=== PATIENT | female | born 1965 | race Caucasian/White ===

== ENCOUNTER 2017-10-17 19:57 | Emergency (ER) | payer MEDICARE, MEDICAID, SELFPAY ==
[2017-10-17] VITALS (9 sets, daily range): BP systolic 93–97; BP diastolic 65–67; PULSE 83–89; RESP 16–20; TEMP 36.5–36.9; O2SAT 92–100
--- NOTE | 2017-10-17 20:21 | DI.REPORT_ITS ---
SYMPTOM/DIAGNOSIS: LEFT KNEE PAIN POST FALL, RIGHT HIP PAIN POST FALL LEFT KNEE: 10/17 Three views were obtained No fracture seen. RIGHT HIP 10/17 Two views were obtained. There are mild degenerative changes of the hip joint. No acute fracture seen.
--- NOTE | 2017-10-17 20:21 | DI.RPTCT_ITS ---
SYMPTOM/DIAGNOSIS: FALL, MIDLINE C-SPINE PAIN, ANTERIOR HEAD PAIN CT CERVICAL SPINE: 10/17 CT examination of the cervical spine was performed utilizing multi-slice acquisition and multiplanar reconstruction. CT examination of the cervical region was performed with multi slice acquisition and multi planar reconstruction. There is no evidence of an acute fracture or dislocation. Tracheolaryngeal structures appear intact. No cervical mass or adenopathy is seen. IMPRESSION: Normal cervical spine CT. No evidence of acute cervical injury. CRANIAL CT (WITHOUT CONTRAST): 10/[address] was performed. The ventricular system is normal in appearance. There is no evidence of an intracranial mass lesion. There is no evidence of a subdural or epidural hematoma. No focal areas of decreased attenuation are seen. CONCLUSION: Normal noncontrast Cranial CT.
[2017-10-17] MEDS: Normal Saline 1,000 ML 1000 ML IV (20:28)
[2017-10-17 20:40] LABS: Abs Immature Grans 0.02 k/cumm (0.0-0.09); Absolute Basophil Count 0.06 k/cumm (0.0-0.2); Absolute Eosinophil Count 0.18 k/cumm (0.0-0.7); Absolute Lymphocyte Count 3.63 k/cumm (1.2-3.4); Absolute Monocyte Count 0.32 k/cumm (0.11-0.7); Absolute Neutrophil Count 2.03 k/cumm (1.2-6.7); Eosinophils % 2.9; HCT 39.4 % (36.0-46.0); HGB 12.9 g/dL (12.0-15.5); Immature Grans % 0.3; Lymphocytes % 58.2; Mean Corp. HGB Concentration 32.7 g/dL (32.0-36.0); Mean Corpuscular Hemoglobin 31.2 pg (27.0-33.0); Mean Corpuscular Volume 95.4 fL (80-95); Mean Platelet Volume 9.8 fL (8.0-11.0); Monocytes % 5.1; Neutrophils % 32.5; Platelet Count 221 x1000/uL (130-400); RBC 4.13 m/cumm (4.00-5.20); RBC Distribution Width 13.8 % (11.7-14.6); White Blood Cell Count 6.24 k/cumm (4.4-10.8)
[2017-10-17 20:50] LABS: Lipase 177 U/L (73-393)
--- NOTE | 2017-10-17 20:53 | DI.REPORT_ITS ---
SYMPTOM/DIAGNOSIS: VOMITING FOR 3 DAYS R/O ACUTE PROCESS ABDOMEN: 10/17 Single supine view of the abdomen was obtained. Bowel gas pattern is within normal limits. No other specific abnormality seen.
[2017-10-17 20:55] LABS: ALT 11 U/L (12-78); AST 14 U/L (15-37); Albumin 3.7 g/dL (3.4-5.0); Alkaline Phosphatase 129 U/L (46-116); Anion Gap 5.7 mmol/L (3-11); BUN 6 mg/dL (7-18); Bilirubin, Total 0.2 mg/dL (0.2-1.0); CO2 28.3 mmol/L (21.0-32.0); CREATININE 0.81 mg/dL (0.55-1.02); Calcium 8.4 mg/dL (8.5-10.1); Chloride 107 mmol/L (98-107); Glucose 112 mg/dL (70-100); Potassium 3.5 mmol/L (3.5-5.1); Sodium 141 mmol/L (136-145); Total Protein 7.2 g/dL (6.4-8.2)
[2017-10-17 21:00] LABS: ETHANOL BLOOD < 3.0 mg/dL (<3)
--- NOTE | 2017-10-17 21:14 | DI.REPORT_ITS ---
SYMPTOM/DIAGNOSIS: SOB, POSSIBLE ASPIRATION PORTABLE AP CHEST: 10/17 The heart is not enlarged. The lungs are grossly clear and well expanded. CONCLUSION: No evidence of acute disease.
--- NOTE | 2017-10-17 21:22 | ED.GENADUL ---
Disposition Clinical Impression: Fall, Dehydration Disposition: HOME Condition: Good Instructions: Dehydration (ED), Fall Prevention (ED) Additional Instructions: Please drink 8-10 cups of water per day. If you notice any worsening of your symptoms, or any new symptoms such as vomiting, diarrhea, fever, chills, shortness of breath, chest pain, numbness, weakness, or fainting , please return immediately to the emergency department for reevaluation. Please follow up with your primary care provider as soon as possible for reassessment and reevaluation. As always, it was a pleasure participating in your medical care today. Referrals: Eliot Sanchez [Primary Care Provider] - Medical Decision Making - Lab Data Laboratory Tests 10/17/17 10/17/17 10/17/17 20:30 20:30 20:30 WBC 6.24 RBC 4.13 Hgb 12.9 Hct 39.4 MCV 95.4 H MCH 31.2 MCHC 32.7 RDW 13.8 Plt Count 221 MPV 9.8 Immature Gran % 0.3 Neutrophils % 32.5 Lymphocytes % 58.2 Monocytes % 5.1 Eosinophils % 2.9 Basophils % 1.0 Absolute Neutrophils 2.03 Absolute Lymphocytes 3.63 H Absolute Monocytes 0.32 Absolute Eosinophils 0.18 Absolute Basophils 0.06 Sodium 141 Potassium 3.5 Chloride 107 Carbon Dioxide 28.3 Anion Gap 5.7 BUN 6 L Creatinine 0.81 Estimated GFR/1.73 m2 >= 60.00 Glucose 112 H Calcium 8.4 L Total Bilirubin 0.2 AST 14 L ALT 11 L Alkaline Phosphatase 129 H Total Protein 7.2 Albumin 3.7 Lipase 177 Ethyl Alcohol < 3.0 - Medical Decision Making This is a 51-year-old female who presents for evaluation after fall. She has pain in her head right hip and left knee. She shows no signs of significant trauma, physical exam is relatively benign with no deformity, abnormality, laxity, or signs of significant trauma. She does appear dehydrated, she does state that she has been vomiting occasionally for the last 3 days. The patient does appear slightly drowsy on my exam. We will get a CT scan of the head and neck, radiographs to rule out any acute process for her lungs, abdomen and extremities. We will rehydrate the patient and reassess. 11:00 PM Patient's laboratory workup has returned relatively benign. Urinalysis for the urine drug screen does show evidence of TCAs and benzodiazepines. Her QRS is normal. Patient continues to be mildly lethargic but certainly responds to painful stimuli. She demonstrates an intact gag reflex. The patient's x-ray results have returned all negative per virtual radiology. Chest x-ray is negative for any acute process, x-ray of the abdomen demonstrates normal abdominal examination with no abnormalities. X-ray of the right hip demonstrates normal 2 view evaluation of the right hip with no fracture or abnormality. X-ray of the left knee demonstrates no acute fracture finding detected. CT scan of the head and neck demonstrates no acute intracranial or cervical spine process per virtual radiology. EKG 22: 43 Rate 73, sinus rhythm, intervals normal, NH 192, QTc 439, QRS 86. No ST elevations or depressions. No T-wave inversions. No Q waves. The patient's benign laboratory workup, and normal imaging studies feel that there is no significant acute traumatic process, in combination with her clinical exam. Patient has demonstrated mild hypotension clinically she does appear slightly dehydrated. We have given her IV fluids. She also does appear notably sedated, and I am concerned that she may have taken some additional benzodiazepines prior to arrival. We will continue to watch and observe her, once her fatigue improves I feel she can be safely discharged home. 12:23 AM The patient has woken up and she appears very awake alert and oriented at this time. Did go in and reevaluate the patient she does state that she might have taken 1 extra clonidine earlier tonight, which would explain her fatigue and her slightly lower blood pressure. After 3 L the patient's blood pressure is in the 90s systolic. I did get her up and ambulated her throughout the department for which she did very well. She had no pain with movement showed no signs of unsteadiness. She continues to demonstrate a normal neurologic exam. I feel that she can be safely discharged home with close follow-up. We discussed red flags which returned the patient understands. I have extensively reviewed the treatment plan and discharge instructions with the patient. I have addressed all patient concerns at this time. The patient was made aware of what symptoms to monitor for that would warrant a return to the emergency department. Discussed the plan with the patient, they demonstrate verbal understanding and agreement with our assessment and plan at this time. History of Present Illness - General Chief complaint: Trauma Stated complaint: ANGEL RESCUE Time Seen by Provider: 10/17/17 20:20 - History of Present Illness Initial comments: This is a 51-year-old female with a past medical history of bipolar, schizophrenia, past surgical history of a hysterectomy who presents today for evaluation after fall. Patient states that she is walking up a ramp at her house with her dogs when she slipped his slip refill, and hit her left knee, right hip, and head. Patient recalls the entire event. She did then lay on the ground for 30 minutes and states that she was unable to get up. Currently she appears very drowsy, but per EMS was awake alert and oriented at the scene. She is complaining of left knee pain, right hip pain, and head pain. Patient does not have any blood thinners that she takes regularly. She denies any IV or illicit drug use. She does take trazodone, Klonopin, amitriptyline regularly. Patient denies taking any additional medications at this time. Patient denies any vision changes, numbness tingling or weakness, chest pain, or shortness of breath. She does state for the last 3 days she has been having occasional vomiting, but has been able to keep down some food today. Patient has no other complaints at this time. - Related Data Calcium Carbonate/Vitamin D3 [Calcium 500-Vit D3 400 Tablet] 1 each PO BID #180 tab-cap 10/23/16 Multivitamin [Multi-Vitamin Daily] 1 each PO DAILY #90 tab-cap 10/23/16 Magnesium Oxide [Magnesium] 400 mg PO DAILY #90 tab-cap 12/06/16 Trazodone HCl 200 mg PO HS #14 tab-cap 02/09/17 Clonazepam 0.5 mg PO TID PRN #60 tab-cap 03/14/17 QUEtiapine [SEROquel] 100 mg PO HS tab-cap 03/21/17 Amoxicillin/Potassium Clav [Amox-Clav 875-125 mg Tablet] 1 each PO BID #10 tab 08/31/17 Amitriptyline [Elavil] 25 mg PO TID tab-cap 09/04/17 Amitriptyline [Elavil] 100 mg PO HS tab-cap 09/04/17 Pregabalin [Lyrica] 300 mg PO BID #14 tab-cap 09/19/17 Allergies Allergy/AdvReac Type Severity Reaction Status Date / Time gabapentin Allergy Unknown unknown Unverified 09/04/17 13:50 aripiprazole [From Abilify] AdvReac Mild Psychosis Unverified 09/04/17 13:50 Review of Systems Other: 10 point review of systems was performed, pertinent positives and negatives are noted in the history of present illness. Past Medical History - Past Medical History Medical history: GERD Metabolic encephalopathy Surgical history: appendectomy, EGD, bilateral tubal ligation, hysterectomy, other (colonoscopy, ) - Social History Alcohol use: heavy Drug use: opiates, marijuana General Exam - Other Other exam information: 1.Const: Well-nourished, Well-developed, appearing stated age 2.Eyes: PERRL, no conjunctival injection, and symmetrical lids. 3.ENT: Atraumatic external nose and ears. Moist MM. Neck: Symmetric, trachea midline, No thyromegaly. There is no evidence of raccoon eyes, block sign, CSF rhinorrhea, mastoid tenderness, cranial crepitus, hemotympanum, exophthalmos, or hyphema. Patient demonstrates intact dentition with no signs of tooth avulsion or fracture, no signs of jaw deformity, no evidence of a LeFort's fracture, with an intact palate, nose and orbital region. There is no evidence of a nasal septal hematoma. No proptosis. Jaw closes symmetrically. Airway is clear. Minimal midline C-spine tenderness, more pronounced on the left paraspinal area. 4.CVS: +S1/S2, No murmurs or gallops. Peripheral pulses 2+ and equal in all extremities. Brisk capillary refill in all extremities. 5.RESP: Unlabored respiratory effort. Clear to auscultation bilaterally. No wheezes rales or rhonchi 6.GI: Soft, Nontender/Nondistended, No hepatosplenomegaly. No guarding or rebound. No signs of bruising or trauma. No significant tenderness on exam. 7.MSK: Normocephalic/Atraumatic, Extremities w/o deformity or ttp No cyanosis or clubbing, Normal movement of all extremities normal range of motion for the upper extremities bilaterally. Patient demonstrates normal internal and external rotation of the hip bilaterally with no significant pain. Normal movement of the knees bilaterally with no crepitus. No joint or ligamentous laxity of the knee. No midline tenderness to palpation over the TLS spine. Patient has +5 out of 5 strength in the lower extremities in dorsiflexion and plantarflexion, knee flexion and extension, hip flexion and extension. There is +2 over 2 dorsalis pedis pulses bilaterally. There is normal sensation to the skin with light touch at the foot, knee, and hip. Normal saddle sensation. Good sensation over the deep sural nerve area bilaterally. Rectal exam deferred. Reflexes are +2 over 4 in the patellar reflex bilaterally. +5 out of 5 strength in the medial, ulnar, radial nerve distribution bilaterally in the hands as well as intact light touch sensation to these dermatomes on the hands 8.Skin: Warm, Dry. No rashes or lesions. No signs of abrasions, significant trauma or excoriations. 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 Sensation grossly intact, no focal neurologic deficits. 10.Psych: (AAO) x3. Appropriate mood and affect Course Vital Signs - 24 hr 10/17/17 20:07 Temperature 36.9 C Pulse 89 Respiratory 18 Rate Blood Pressure 97/67 Pulse Oximetry 93 L
[2017-10-17 21:43] LABS: Troponin I < 0.02 ng/mL (0.00-0.06)
[2017-10-17 22:00] LABS: *AMPHETAMINES SCREEN URINE Negative (Negative); *BARBITURATES SCREEN URINE Negative (Negative); *BENZODIAZEPINES SCREEN URINE POSITIVE (Negative); Cannabinoids THC Negative (Negative); Cocaine Screen,Urine Negative (Negative); METHADONE URINE SCREEN Negative (Negative); OPIATES URINE SCREEN Negative (Negative)
[2017-10-17 22:01] LABS: Tricyclic Antidepressants POSITIVE (Negative)
--- NOTE | 2017-10-17 22:07 | DI.VRAD_ITS ---
EXAM: CT Head Without Intravenous Contrast EXAM DATE/TIME: 10/17/2017 8:46 PM CLINICAL HISTORY: 51 years old, female; Signs and symptoms; Other: Fall TECHNIQUE: Axial computed tomography images of the head/brain without intravenous contrast. All CT scans at this facility use at least one of these dose optimization techniques: automated exposure control; mA and/or kV adjustment per patient size (includes targeted exams where dose is matched to clinical indication); or iterative reconstruction. Coronal and sagittal reformatted images were created and reviewed. COMPARISON: CT - HEAD WITHOUT CONTRAST 11/17/2015 3:24 PM FINDINGS: Brain: Moderate bifrontal temporal cortical atrophy is present. The possibility of some underlying neurodegenerative disorder should be considered. No intracranial hemorrhage. No significant white matter and in the period Ventricles: Normal. No ventriculomegaly. Bones/joints: Normal. No acute fracture. Sinuses: Normal as visualized. No acute sinusitis. Mastoid air cells: Normal as visualized. No mastoid effusion. Soft tissues: Normal. IMPRESSION: No acute intracranial findings are detected. EXAM: CT Cervical Spine Without Intravenous Contrast EXAM DATE/TIME: 10/17/2017 8:46 PM CLINICAL HISTORY: 51 years old, female; Signs and symptoms; Other: Fall TECHNIQUE: Axial computed tomography images of the cervical spine without intravenous contrast. All CT scans at this facility use at least one of these dose optimization techniques: automated exposure control; mA and/or kV adjustment per patient size (includes targeted exams where dose is matched to clinical indication); or iterative reconstruction. Coronal and sagittal reformatted images were created and reviewed. COMPARISON: CT - HEAD WITHOUT CONTRAST 11/17/2015 3:24 PM FINDINGS: Vertebrae: No acute fracture. Normal alignment. Discs/Spinal canal/Neural foramina: No spinal stenosis. No neural foraminal narrowing. Soft tissues: Unremarkable. Lung apices: Posterior right apical-upper lobe pleural bullae are present. IMPRESSION: No acute findings are detected. Dictated and Authenticated by: Yehuda Ozuna MD. Ordering:OLIVIA SMART MD
--- NOTE | 2017-10-17 22:08 | DI.VRAD_ITS ---
EXAM: XR Left Knee, 3 Views EXAM DATE/TIME: 10/17/2017 8:24 PM CLINICAL HISTORY: 51 years old, female; Pain; Knee; Left; Patient HX: Lt. Knee pain after fall. ; Additional info: Best tunnel view possible due to patient's loc. TECHNIQUE: XR Left knee 3 views. COMPARISON: No relevant prior studies available. FINDINGS: Bones/joints: Normal. Soft tissues: Normal. IMPRESSION: No acute findings are detected. Dictated and Authenticated by: Yehuda Ozuna MD. Ordering:OLIVIA SMART MD
--- NOTE | 2017-10-17 22:09 | DI.VRAD_ITS ---
EXAM: XR Right Hip with Pelvis when Performed, 2 or 3 Views EXAM DATE/TIME: 10/17/2017 8:24 PM CLINICAL HISTORY: 51 years old, female; Pain; Hip pain; Right hip TECHNIQUE: XR Right hip with pelvis when performed, 2 or 3 views COMPARISON: CR - RIGHT HIP COMPLETE 05/10/2012 9:06 AM FINDINGS: Bones/joints: Normal. No acute fracture. Soft tissues: Normal. IMPRESSION: Normal 2 view evaluation of the right hip. Dictated and Authenticated by: Yehuda Ozuna MD. Ordering:OLIVIA SMART MD
--- NOTE | 2017-10-17 22:10 | DI.VRAD_ITS ---
EXAM: XR Abdomen, 1 View EXAM DATE/TIME: 10/17/2017 8:54 PM CLINICAL HISTORY: 51 years old, female; Signs and symptoms; Vomiting; Patient HX: Vomiting x3 days TECHNIQUE: Frontal supine view of the abdomen/pelvis. COMPARISON: CR - ABDOMEN FLAT PLATE 05/19/2013 11:12 AM FINDINGS: Gastrointestinal tract: Normal. No bowel dilation. Bones/joints: Unremarkable for age. IMPRESSION: Normal supine AP abdominal examination. Dictated and Authenticated by: Yehuda Ozuna MD. Ordering:NICHOLAS REYNA MD
--- NOTE | 2017-10-17 22:11 | DI.VRAD_ITS ---
EXAM: XR Chest, 1 View EXAM DATE/TIME: 10/17/2017 9:09 PM CLINICAL HISTORY: 51 years old, female; Signs and symptoms; Shortness of breath; Patient HX: SOB, possible aspiration. TECHNIQUE: XR of the chest, 1 view. COMPARISON: CR - CHEST 2 VIEWS PA,LAT 09/01/2014 4:05 AM FINDINGS: Lungs: Unremarkable. No consolidation. Pleural space: Unremarkable. No pleural effusion. No pneumothorax. Heart/Mediastinum: Unremarkable. No cardiomegaly. Bones/joints: Unremarkable for patient's age. IMPRESSION: Normal AP chest examination. Dictated and Authenticated by: Yehuda Ozuna MD. Ordering:OLIVIA SMART MD
[2017-10-18] MEDS: Normal Saline 1,000 ML 1000 ML IV (00:24)
== END 2017-10-18 00:36 | disposition home or self-care (01) ==
PROVIDERS: Student in an Organized Health Care Education/Training Program; Emergency Provider Physician Assistant; PCP Family Medicine
DX: E86.0 Dehydration (principal); S09.90XA Unspecified injury of head, initial encounter; R11.2 Nausea with vomiting, unspecified; W10.2XXA Fall (on)(from) incline, initial encounter; Y93.K1 Activity, walking an animal; R53.83 Other fatigue; M25.551 Pain in right hip; M25.562 Pain in left knee
CPT/HCPCS: 70450; 71045; 72125; 73502; 73562; 74018; 93005; 96360; 96361; 99285 ×2; 36415; 80053; 80307; 83690; 80320; 84484; 85025; 93010

== ENCOUNTER → 2017-10-23 11:53 | Outpatient (CLI) | payer MEDICARE, MEDICAID, SELFPAY ==
[2017-10-23 13:39] LABS: Cholesterol 210 mg/dL (50-200); HDL Cholesterol 59 mg/dL (40-60); LDL CHOLESTEROL 116 mg/dL (<100); Triglyceride 245 mg/dL (30-150)
== END ==
PROVIDERS: PCP Family Medicine; Visit Provider Family Medicine
DX: E78.5 Hyperlipidemia, unspecified (principal)
CPT/HCPCS: 36415; 80061; 83721

== ENCOUNTER 2018-01-03 11:35 | Emergency (ER) | payer MEDICARE, MEDICAID, SELFPAY ==
[2018-01-03] VITALS (34 sets, daily range): BP systolic 104–113; BP diastolic 60–84; PULSE 91–109; RESP 16–22; TEMP 36.7–37.1; O2SAT 93–98
--- NOTE | 2018-01-03 11:57 | DI.CT_ITS ---
SYMPTOMS/DIAGNOSIS: LEFT FLANK AND ABDOMINAL PAIN RENAL COLIC CT: The noncontrast enhanced study was carried out according to the usual protocol. The kidneys are normal with no evidence of nephrolithiasis or hydronephrosis. No gross mass or cyst is identified. The adrenals appear normal. There is no evidence of ureterolithiasis or ureterectasis. The bladder is intact. The liver, and gallbladder, and pancreas and spleen as visualized appear unremarkable on this nonenhanced scan. There is no evidence of bowel obstruction. There is no evidence of free air or free fluid in the intraperitoneal space. There is also no evidence of an acute appendix. The reproductive organs as visualized appear intact. There are atherosclerotic changes involving the aorta without evidence of an aneurysm. No acute bony abnormality is identified. SUMMARY: No pathology is demonstrated.
--- NOTE | 2018-01-03 12:00 | DI.CT_ITS ---
SYMPTOMS/DIAGNOSIS: INCREASED FALLS, CONTINUED NECK PAIN CRANIAL CT: A noncontrast enhanced examination was performed. There are mild atrophic changes. There is no evidence of an intra or extra-axial hemorrhage, mass, fluid collection, edema or territorial CVA. The ventricles are intact. The posterior fossa is unremarkable. The normal morgan/white matter differentiation is maintained throughout. There is no evidence of a skull fracture. The paranasal sinuses are intact. There is no evidence of a mastoid effusion. SUMMARY: No acute intracranial abnormality is apparent. CERVICAL SPINE CT: A noncontrast enhanced examination was performed. The cervical vertebra are intact with no evidence of a fracture or dislocation. There is no evidence of gross disc space narrowing. The posterior elements and facet joints are intact. The neural canal is widely patent throughout. The odontoid is closely applied to the anterior arch of C 1. There is no evidence of a fracture. The prevertebral soft tissues are incompletely demonstrated in the lateral plane, however, there is no appreciable abnormality as judged from the coronal and sagittal images. SUMMARY: Negative c-spine CT with no evidence of a fracture or dislocation.
--- NOTE | 2018-01-03 12:01 | W.ED.GENAD ---
Discharge Plan Disposition Patient Disposition: HOME Condition: Stable Discharge Details Chief Complaint: Nk/Back Pain Clinical Impression: Pneumonia Primary Care Provider: Eliot Sanchez ED Provider: Caio Lu [facility] Meds and New Rx's Prescriptions: New azithromycin [Zithromax Z-Markos] 250 mg tablet See Label Instructions .ROUTE .COMPLEX Qty: 6 RF: 0 No Action trazodone 100 MG tablet 200 mg PO HS Qty: 14 RF: 0 clonazepam 0.5 MG tablet,disintegrating 0.5 mg PO TID PRNQty: 60 RF: 0 quetiapine [Seroquel] 100 MG tablet 100 mg PO HS RF: 0 amitriptyline 25 MG tablet 25 mg PO TID RF: 0 amitriptyline 100 MG tablet 100 mg PO HS RF: 0 multivitamin [Daily Multi-Vitamin] 1 EACH tablet 1 ea PO DAILY Qty: 90 RF: 3 magnesium oxide 400 MG tablet 400 mg PO DAILY Qty: 90 RF: 3 calcium carbonate-vitamin D3 [Calcium 500 + D] 1 EACH tablet 1 ea PO BID Qty: 180 RF: 3 pregabalin [Lyrica] 300 mg capsule 300 mg PO BID Qty: 28 RF: 2 Discharge Instructions Instructions: Pneumonia (ED) Referrals: Eliot Sanchez [Primary Care Provider] - Return if symptoms worsen Discharge Data Discharge Date/Time-TO BE ENTERED AT DEPARTURE: 01/03/18 17:05 Medical Decision Making Apprised patient of lab work and DI impressions. Plan to treat suspect pneumonia with Zithromax. Advised to get plenty of rest and fluids. She rested all after noon. Trops negative times two. CT scans were reported as negative by radiology. She did have a elevated WBC with ambiguous x-ray that could support pneumonia. She had supper prior to DC. She tells me she is feeling better. Imaging Data Radiologic Study: Imaging: X-Ray My impression: Chest x-ray: ? RLL pneumonia Radiologist's impression: chest x-ray: Possible RLL infiltrate. CT: Negative head, neck, and renal colic CT. ECG Data Interpretation: Reviewed with Dr. Borja. No acute ST changes. signs rhythm with tachycardia rate. HPI General Mode of arrival: EMS. Date/Time Provider Initiated Documentation: 01/03/18 11:35. Limitations to Documentation: no limitations. Information obtained by: patient. History of Present Illness 52 year old F presents to the emergency department with the chief complaint of falls, described as mild, HPI Narrative: 52 y/o female brought in by [facility] ambulance after being found down after a fall. 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 She denies hitting her head but reports frequent falls recently. She also c/o neck pain and abdominal pain with some nausea. Denies any fever or chills. Initial report was she had back pain but she tells me or points to her left flank and abdomen pain. Denies any CP, SOB, or symptoms. Related Data Home Medications Medication Instructions Recorded Confirmed trazodone 200 mg PO HS #14 tab-cap 02/09/17 01/03/18 clonazepam 0.5 mg PO TID PRN #60 tab-cap 03/14/17 01/03/18 quetiapine [Seroquel] 100 mg PO HS tab-cap 03/21/17 01/03/18 amitriptyline 25 mg PO TID tab-cap 09/04/17 01/03/18 amitriptyline 100 mg PO HS tab-cap 09/04/17 01/03/18 calcium carbonate-vitamin D3 1 ea PO BID #180 tab-cap 10/23/17 01/03/18 [Calcium 500-Vit D3 400 Tablet] magnesium oxide 400 mg PO DAILY #90 tab-cap 10/23/17 01/03/18 multivitamin [Multi-Vitamin Daily] 1 ea PO DAILY #90 tab-cap 10/23/17 01/03/18 pregabalin 300 mg capsule 300 mg PO BID #28 tab-cap 11/28/17 01/03/18 azithromycin [Zithromax Z-Markos] See Label Instructions .ROUTE 01/03/18 .COMPLEX #6 tab Previous Rx's Medication Instructions Recorded trazodone 200 mg PO HS #14 tab-cap 02/09/17 calcium carbonate-vitamin D3 1 ea PO BID #180 tab-cap 10/23/17 [Calcium 500-Vit D3 400 Tablet] magnesium oxide 400 mg PO DAILY #90 tab-cap 10/23/17 multivitamin [Multi-Vitamin Daily] 1 ea PO DAILY #90 tab-cap 10/23/17 pregabalin 300 mg capsule 300 mg PO BID #28 tab-cap 11/28/17 azithromycin [Zithromax Z-Markos] See Label Instructions .ROUTE 01/03/18 .COMPLEX #6 tab Allergies Allergy/AdvReac Type Severity Reaction Status Date / Time gabapentin Allergy Unknown unknown Unverified 01/03/18 11:50 aripiprazole [From Abilify] AdvReac Mild Psychosis Unverified 01/03/18 11:50 General Stated Complaint: Nk/Back Pain LASHELL: 3 Review of Systems Constitutional Reports frequent falls Eyes Reports system reviewed and no additional complaints, except as docu ENT Reports system reviewed and no additional complaints, except as docu and Reports neck pain Cardiovascular Reports system reviewed and no additional complaints, except as docu Respiratory Reports system reviewed and no additional complaints, except as docu Gastrointestinal Reports abdominal pain Genitourinary Reports system reviewed and no additional complaints, except as docu Musculoskeletal Reports neck pain Neurologic Reports frequent falls Psychiatric Reports system reviewed and no additional complaints, except as docu PFSH Family History Mother No problems noted. Father No problems noted. Brother Heart disease Social History Smoking/Tobacco Use Status: Current every day Surgical History Abdominal hysterectomy Colonoscopy - MAC EXC. ENDOMETRIOSIS (11/29/98) Ligation of fallopian tube Exam Const General: cooperative, no acute distress, disheveled and lethargic Nutritional Appearance: overweight Orientation: awake and oriented x3 HENMT Head: atraumatic Ears: hearing grossly normal bilaterally and external ears normal General nose exam: external nose normal and nares normal Face and sinus: normal facial exam and sinuses nontender Mouth: moist mucous membranes Eyes General: appearance normal, both eyes and all related structures Neck Neck: full ROM, no lymphadenopathy and tender (left para spinal musculature. ) Lymphatic: no lymphadenopathy noted Resp Effort & Inspection: normal respiratory effort Auscultation: clear to auscultation bilaterally Cardio Jugular venous pressure: no JVD Rate: tachycardic Rhythm: regular rhythm Heart Sounds: S1 normal GI Inspection: normal to inspection and non-distended Palpation: soft and tender in the LLQ; not at McBurney's point, Mccrary's sign negative and with no rebound tenderness Auscultation: normal bowel sounds Back/Spine/Pelvis Back: no CVA tenderness, CVA tenderness and No back tenderness Pelvis: no pain with anterior-posterior compression Back/spine/pelvis image: 1. pain Skin General skin exam: no rashes or lesions noted and other (dirty) Lesions: no lesions Rashes: no rashes Wounds: no wounds Neuro General: alert, awake, oriented x3, moves all extremities, no meningeal signs and no focal motor deficits Cranial Nerves: PERRL Speech: abnormal speech slurred Gait: antalgic Sensory Exam: no sensory deficits noted Coordination: [id number] test normal, [id number] test normal and Romberg test abnormal Extrem General: normal to inspection, full ROM and normal capillary refill Psych Appearance: disheveled (dirty) Mental Status: mental status grossly normal Speech and Movement: speech and movement normal Mood: congruent mood Affect: normal affect Attitude: cooperative Thought Process: circumstantial Thought Content: normal Insight: fair Judgment: fair Course Vital Signs Temperature 37.1 C 01/03/18 11:41 Pulse 106 H 01/03/18 11:41 Respiratory Rate 16 01/03/18 11:41 Blood Pressure 110/81 01/03/18 11:41 Pulse Oximetry 93 L 01/03/18 11:41 Temperature 37.1 C 01/03/18 11:41 Temperature Source Temporal Artery Scan 01/03/18 11:41 Pulse 106 H 01/03/18 11:41 Respiratory Rate 16 01/03/18 11:41 Respiratory Effort Non-Labored 01/03/18 11:46 Blood Pressure 110/81 01/03/18 11:41 Blood Pressure Position Supine 01/03/18 11:41 Pulse Oximetry 93 L 01/03/18 11:41 Oxygen Delivery Method Room Air 01/03/18 11:41 Oxygen Flow Rate 0 01/03/18 11:41 Pain Level 10 01/03/18 11:48
--- NOTE | 2018-01-03 12:04 | ED.GENADUL_ITS ---
Discharge Plan Disposition Patient Disposition: HOME Condition: Stable Discharge Details Chief Complaint: Nk/Back Pain Clinical Impression: Pneumonia Primary Care Provider: Eliot Sanchez ED Provider: Caio Lu [facility] Meds and New Rx's Prescriptions: New azithromycin [Zithromax Z-Markos] 250 mg tablet See Label Instructions .ROUTE .COMPLEX Qty: 6 RF: 0 No Action trazodone 100 MG tablet 200 mg PO HS Qty: 14 RF: 0 clonazepam 0.5 MG tablet,disintegrating 0.5 mg PO TID PRNQty: 60 RF: 0 quetiapine [Seroquel] 100 MG tablet 100 mg PO HS RF: 0 amitriptyline 25 MG tablet 25 mg PO TID RF: 0 amitriptyline 100 MG tablet 100 mg PO HS RF: 0 multivitamin [Daily Multi-Vitamin] 1 EACH tablet 1 ea PO DAILY Qty: 90 RF: 3 magnesium oxide 400 MG tablet 400 mg PO DAILY Qty: 90 RF: 3 calcium carbonate-vitamin D3 [Calcium 500 + D] 1 EACH tablet 1 ea PO BID Qty: 180 RF: 3 pregabalin [Lyrica] 300 mg capsule 300 mg PO BID Qty: 28 RF: 2 Discharge Instructions Instructions: Pneumonia (ED) Referrals: Eliot Sanchez [Primary Care Provider] - Return if symptoms worsen Discharge Data Discharge Date/Time-TO BE ENTERED AT DEPARTURE: 01/03/18 17:05 Medical Decision Making Apprised patient of lab work and DI impressions. Plan to treat suspect pneumonia with Zithromax. Advised to get plenty of rest and fluids. She rested all after noon. Trops negative times two. CT scans were reported as negative by radiology. She did have a elevated WBC with ambiguous x-ray that could support pneumonia. She had supper prior to DC. She tells me she is feeling better. Imaging Data Radiologic Study: Imaging: X-Ray My impression: Chest x-ray: ? RLL pneumonia Radiologist's impression: chest x-ray: Possible RLL infiltrate. CT: Negative head, neck, and renal colic CT. ECG Data Interpretation: Reviewed with Dr. Borja. No acute ST changes. signs rhythm with tachycardia rate. HPI General Mode of arrival: EMS . Date/Time Provider Initiated Documentation: 01/03/18 11:35 . Limitations to Documentation: no limitations . Information obtained by: patient . History of Present Illness 52 year old F presents to the emergency department with the chief complaint of falls, described as mild, HPI Narrative: 52 y/o female brought in by [facility] ambulance after being found down after a fall. 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 She denies hitting her head but reports frequent falls recently. She also c/o neck pain and abdominal pain with some nausea. Denies any fever or chills. Initial report was she had back pain but she tells me or points to her left flank and abdomen pain. Denies any CP, SOB, or symptoms. Related Data Home Medications Medication Instructions Recorded Confirmed trazodone 200 mg PO HS #14 tab-cap 02/09/17 01/03/18 clonazepam 0.5 mg PO TID PRN #60 tab-cap 03/14/17 01/03/18 quetiapine [Seroquel] 100 mg PO HS tab-cap 03/21/17 01/03/18 amitriptyline 25 mg PO TID tab-cap 09/04/17 01/03/18 amitriptyline 100 mg PO HS tab-cap 09/04/17 01/03/18 calcium carbonate-vitamin D3 1 ea PO BID #180 tab-cap 10/23/17 01/03/18 [Calcium 500-Vit D3 400 Tablet] magnesium oxide 400 mg PO DAILY #90 tab-cap 10/23/17 01/03/18 multivitamin [Multi-Vitamin Daily] 1 ea PO DAILY #90 tab-cap 10/23/17 01/03/18 pregabalin 300 mg capsule 300 mg PO BID #28 tab-cap 11/28/17 01/03/18 azithromycin [Zithromax Z-Markos] See Label Instructions .ROUTE 01/03/18 .COMPLEX #6 tab Previous Rx's Medication Instructions Recorded trazodone 200 mg PO HS #14 tab-cap 02/09/17 calcium carbonate-vitamin D3 1 ea PO BID #180 tab-cap 10/23/17 [Calcium 500-Vit D3 400 Tablet] magnesium oxide 400 mg PO DAILY #90 tab-cap 10/23/17 multivitamin [Multi-Vitamin Daily] 1 ea PO DAILY #90 tab-cap 10/23/17 pregabalin 300 mg capsule 300 mg PO BID #28 tab-cap 11/28/17 azithromycin [Zithromax Z-Markos] See Label Instructions .ROUTE 01/03/18 .COMPLEX #6 tab Allergies Allergy/AdvReac Type Severity Reaction Status Date / Time gabapentin Allergy Unknown unknown Unverified 01/03/18 11:50 aripiprazole [From Abilify] AdvReac Mild Psychosis Unverified 01/03/18 11:50 General Stated Complaint: Nk/Back Pain LASHELL: 3 Review of Systems Constitutional Reports frequent falls Eyes Reports system reviewed and no additional complaints, except as docu ENT Reports system reviewed and no additional complaints, except as docu and Reports neck pain Cardiovascular Reports system reviewed and no additional complaints, except as docu Respiratory Reports system reviewed and no additional complaints, except as docu Gastrointestinal Reports abdominal pain Genitourinary Reports system reviewed and no additional complaints, except as docu Musculoskeletal Reports neck pain Neurologic Reports frequent falls Psychiatric Reports system reviewed and no additional complaints, except as docu PFSH Family History Mother No problems noted. Father No problems noted. Brother Heart disease Social History Smoking/Tobacco Use Status: Current every day Surgical History Abdominal hysterectomy Colonoscopy - MAC EXC. ENDOMETRIOSIS (11/29/98) Ligation of fallopian tube Exam Const General: cooperative, no acute distress, disheveled and lethargic Nutritional Appearance: overweight Orientation: awake and oriented x3 HENMT Head: atraumatic Ears: hearing grossly normal bilaterally and external ears normal General nose exam: external nose normal and nares normal Face and sinus: normal facial exam and sinuses nontender Mouth: moist mucous membranes Eyes General: appearance normal, both eyes and all related structures Neck Neck: full ROM, no lymphadenopathy and tender (left para spinal musculature. ) Lymphatic: no lymphadenopathy noted Resp Effort & Inspection: normal respiratory effort Auscultation: clear to auscultation bilaterally Cardio Jugular venous pressure: no JVD Rate: tachycardic Rhythm: regular rhythm Heart Sounds: S1 normal GI Inspection: normal to inspection and non-distended Palpation: soft and tender in the LLQ; not at McBurney's point, Mccrary's sign negative and with no rebound tenderness Auscultation: normal bowel sounds Back/Spine/Pelvis Back: no CVA tenderness, CVA tenderness and No back tenderness Pelvis: no pain with anterior-posterior compression Back/spine/pelvis image: 2 1. pain Skin General skin exam: no rashes or lesions noted and other (dirty) Lesions: no lesions Rashes: no rashes Wounds: no wounds Neuro General: alert, awake, oriented x3, moves all extremities, no meningeal signs and no focal motor deficits Cranial Nerves: PERRL Speech: abnormal speech slurred Gait: antalgic Sensory Exam: no sensory deficits noted Coordination: [id number] test normal, [id number] test normal and Romberg test abnormal Extrem General: normal to inspection, full ROM and normal capillary refill Psych Appearance: disheveled (dirty) Mental Status: mental status grossly normal Speech and Movement: speech and movement normal Mood: congruent mood Affect: normal affect Attitude: cooperative Thought Process: circumstantial Thought Content: normal Insight: fair Judgment: fair Course Vital Signs Temperature 37.1 C 01/03/18 11:41 Pulse 106 H 01/03/18 11:41 Respiratory Rate 16 01/03/18 11:41 Blood Pressure 110/81 01/03/18 11:41 Pulse Oximetry 93 L 01/03/18 11:41 Temperature 37.1 C 01/03/18 11:41 Temperature Source Temporal Artery Scan 01/03/18 11:41 Pulse 106 H 01/03/18 11:41 Respiratory Rate 16 01/03/18 11:41 Respiratory Effort Non-Labored 01/03/18 11:46 Blood Pressure 110/81 01/03/18 11:41 Blood Pressure Position Supine 01/03/18 11:41 Pulse Oximetry 93 L 01/03/18 11:41 Oxygen Delivery Method Room Air 01/03/18 11:41 Oxygen Flow Rate 0 01/03/18 11:41 Pain Level 10 01/03/18 11:48
[2018-01-03] MEDS: Normal Saline 1,000 ML 1000 ML IV (12:15)
[2018-01-03] MEDS: Ondansetron 4 MG/2 ML VIAL IVP (12:22)
[2018-01-03 12:31] LABS: Abs Immature Grans 0.12 k/cumm (0.0-0.09); Absolute Basophil Count 0.04 k/cumm (0.0-0.2); Absolute Eosinophil Count 0.02 k/cumm (0.0-0.7); Absolute Lymphocyte Count 2.23 k/cumm (1.2-3.4); Absolute Monocyte Count 0.72 k/cumm (0.11-0.7); Absolute Neutrophil Count 14.43 k/cumm (1.2-6.7); Basophils % 0.2; Eosinophils % 0.1; HCT 39.2 % (36.0-46.0); HGB 12.8 g/dL (12.0-15.5); Immature Grans % 0.7; Lymphocytes % 12.7; Mean Corp. HGB Concentration 32.7 g/dL (32.0-36.0); Mean Corpuscular Hemoglobin 31.6 pg (27.0-33.0); Mean Corpuscular Volume 96.8 fL (80-95); Mean Platelet Volume 9.7 fL (8.0-11.0); Monocytes % 4.1; Neutrophils % 82.2; Platelet Count 247 x1000/uL (130-400); RBC 4.05 m/cumm (4.00-5.20); RBC Distribution Width 12.9 % (11.7-14.6); White Blood Cell Count 17.56 k/cumm (4.4-10.8)
[2018-01-03 12:44] LABS: ALT 14 U/L (12-78); AST 23 U/L (15-37); Albumin 3.7 g/dL (3.4-5.0); Alkaline Phosphatase 150 U/L (46-116); Anion Gap 10.6 mmol/L (3-11); BUN 12 mg/dL (7-18); Bilirubin, Total 0.2 mg/dL (0.2-1.0); CO2 28.4 mmol/L (21.0-32.0); Calcium 9.2 mg/dL (8.5-10.1); Chloride 100 mmol/L (98-107); Glucose 105 mg/dL (70-100); Magnesium 2.1 mg/dL (1.8-2.4); Potassium 3.6 mmol/L (3.5-5.1); Sodium 139 mmol/L (136-145); Total Protein 7.4 g/dL (6.4-8.2)
[2018-01-03 12:49] LABS: Troponin I < 0.02 ng/mL (0.00-0.06)
[2018-01-03 12:57] LABS: Bilirubin Negative (Negative); Blood Negative (Negative); Clarity Clear; Glucose Negative (Negative); Ketones Negative (Negative); Leukocyte Esterase Negative (Negative); Nitrite Negative (Negative); Urobilinogen 0.2 EU/dL (Up TO 0.2)
[2018-01-03 13:04] LABS: *AMPHETAMINES SCREEN URINE Negative (Negative); *BARBITURATES SCREEN URINE Negative (Negative); *BENZODIAZEPINES SCREEN URINE Negative (Negative); Cannabinoids THC Negative (Negative); Cocaine Screen,Urine Negative (Negative); METHADONE URINE SCREEN Negative (Negative); OPIATES URINE SCREEN Negative (Negative)
[2018-01-03 13:06] LABS: Tricyclic Antidepressants POSITIVE (Negative)
--- NOTE | 2018-01-03 13:30 | DI.RAD_ITS ---
SYMPTOMS/DIAGNOSIS: ELEVATED WBC, ABDOMINAL/CHEST PAIN AP AND LATERAL UPRIGHT CHEST: Small areas of atelectasis or scarring are noted in the right lower lobe. There is an ill-defined density projected over the posterior portion of the right lower lobe. No pleural effusion is seen. The cardiovascular structures are intact. SUMMARY: Allowing for rotation of the patient, there may be an infiltrate in the right lower lobe. If clinically warranted, a follow-up AP and lateral examination of the chest is suggested.
[2018-01-03 16:36] LABS: Troponin I < 0.02 ng/mL (0.00-0.06)
== END 2018-01-03 17:05 | disposition home or self-care (01) ==
PROVIDERS: Emergency Provider Nurse Practitioner Family; PCP Family Medicine
DX: J18.9 Pneumonia, unspecified organism (principal); R00.0 Tachycardia, unspecified; M54.2 Cervicalgia; R10.9 Unspecified abdominal pain; W01.0XXA Fall on same level from slipping, tripping and stumbling without subsequent striking against object, initial encounter; F17.210 Nicotine dependence, cigarettes, uncomplicated
CPT/HCPCS: 36415; 51701; 80053; 80307; 93005; 96361; 96374; 99285; 70450; 71046; 72125; 74176; 81003; 83735; 84484; 85025; 93010; J2405

== ENCOUNTER 2018-01-11 08:21 | Outpatient (CLI) | payer MEDICARE, MEDICAID, SELFPAY ==
[2018-01-11 11:19] LABS: HCT 42.7 % (36.0-46.0); HGB 13.7 g/dL (12.0-15.5); Mean Corp. HGB Concentration 32.1 g/dL (32.0-36.0); Mean Corpuscular Hemoglobin 31.2 pg (27.0-33.0); Mean Corpuscular Volume 97.3 fL (80-95); Platelet Count 274 x1000/uL (130-400); RBC 4.39 m/cumm (4.00-5.20); RBC Distribution Width 13.3 % (11.7-14.6); White Blood Cell Count 8.59 k/cumm (4.4-10.8)
[2018-01-11 11:22] LABS: Alkaline Phosphatase 142 U/L (46-116); C-Reactive Protein 1.41 mg/dL (0.0-0.3)
== END 2018-01-11 08:41 ==
PROVIDERS: PCP Family Medicine; Visit Provider Family Medicine
DX: M25.559 Pain in unspecified hip (principal); F17.200 Nicotine dependence, unspecified, uncomplicated; R74.8 Abnormal levels of other serum enzymes
CPT/HCPCS: 36415; 85027; 84075; 86140

== ENCOUNTER 2018-01-24 02:21 | Outpatient (CLI) | payer MEDICARE, MEDICAID, SELFPAY ==
[2018-01-25 11:41] LABS: Lyme Ab w Rflx to Lyme Confirm Negative
== END 2018-01-24 02:41 ==
PROVIDERS: PCP Family Medicine; Visit Provider Family Medicine
DX: M25.50 Pain in unspecified joint (principal)
CPT/HCPCS: 36415; 99282; 86618

== ENCOUNTER 2018-01-24 12:06 | Emergency (ER) | payer MEDICARE, MEDICAID, SELFPAY ==
[2018-01-24 12:12] VITALS: BP 120/82; PULSE 110; RESP 16; TEMP 36.5; O2SAT 97
--- NOTE | 2018-01-24 13:25 | ED.GENADUL_ITS ---
Discharge Plan Disposition Patient Disposition: HOME Condition: Fair Discharge Details Chief Complaint: Sorethroat Clinical Impression: Acute pharyngitis, URI (upper respiratory infection) Primary Care Provider: Eliot Sanchez ED Provider: Dilcia Panda Home Meds and New Rx's Prescriptions: Continue trazodone 100 MG tablet 200 mg PO HS Qty: 14 RF: 0 clonazepam 0.5 MG tablet,disintegrating 0.5 mg PO TID PRNQty: 60 RF: 0 quetiapine [Seroquel] 100 MG tablet 100 mg PO HS RF: 0 amitriptyline 25 MG tablet 25 mg PO TID RF: 0 amitriptyline 100 MG tablet 100 mg PO HS RF: 0 multivitamin [Daily Multi-Vitamin] 1 EACH tablet 1 ea PO DAILY Qty: 90 RF: 3 magnesium oxide 400 MG tablet 400 mg PO DAILY Qty: 90 RF: 3 calcium carbonate-vitamin D3 [Calcium 500 + D] 1 EACH tablet 1 ea PO BID Qty: 180 RF: 3 Discharge Instructions Instructions: Pharyngitis (ED), Upper Respiratory Infection (ED) Additional Instructions: Encourage hydration. Tylenol and/or ibuprofen as needed for discomfort. Main nasal saline may help with your congestion help to clear your sinuses. Please follow-up with primary care provider in 1 week if symptoms persist. If you develop shortness of breath, difficulty breathing, inability to stay hydrated, swelling or other new/worsening symptoms please seek care urgently once again Referrals: Eliot Sanchez [Primary Care Provider] - Discharge Data Discharge Date/Time-TO BE ENTERED AT DEPARTURE: 01/24/18 13:16 Medical Decision Making Patient 52-year-old female presenting today with chief complaint of sore throat. States that symptoms began last night. Is also endorsing left-sided facial pain. States that she suffered a fracture of the left zygomatic arch quite awhile ago and that since then she has been prone to sinus discomfort. Is having popping in the left ear. Denies any fevers or chills. Denies any cough. Is not having difficulty swallowing or eating. On exam, patient appears nontoxic. Patient is afebrile. Posterior arthritis is mildly erythematous. No tonsillar swelling. No exudate. Uvula is midline. No trismus. Noted swelling of the tongue. Patient is point tender over the left maxillary sinus with percussion. Ears are without findings to suggest acute infection. Advised that her symptoms are likely viral in nature. Encourage hydration. We discussed home and [id number] remedies that may help with symptomatic management. At this point, I do not see any acute emergent issue requiring further intervention or warrant antibiotics at this time. Advise follow-up with primary care in 1 week. All of her questions and concerns were addressed she is in agreement with this plan HPI General Mode of arrival: ambulatory . Date/Time Provider Initiated Documentation: 01/24/18 12:20 . Limitations to Documentation: no limitations . Information obtained by: patient . History of Present Illness 52 year old F presents to the emergency department with the chief complaint of sore throat, described as moderate, with intensity rated at 6. Quality is described as aching, and is localized to the face (also endorsing left maxillary sinus discomfort) and mouth. Patient reports no radiation. Patient started experiencing this day(s) (1) and it has been constant. No relieving factors improve symptom(s), No exacerbating factors reported . Patient notes denies chest pain, cough, fever/chills, loss of appetite, nausea/ vomiting and rash. Patient did receive the following treatments prior to arrival, none Related Data Home Medications Medication Instructions Recorded Confirmed trazodone 200 mg PO HS #14 tab-cap 02/09/17 01/24/18 clonazepam 0.5 mg PO TID PRN #60 tab-cap 03/14/17 01/24/18 quetiapine [Seroquel] 100 mg PO HS tab-cap 03/21/17 01/24/18 amitriptyline 25 mg PO TID tab-cap 09/04/17 01/24/18 amitriptyline 100 mg PO HS tab-cap 09/04/17 01/24/18 calcium carbonate-vitamin D3 1 ea PO BID #180 tab-cap 10/23/17 01/11/18 [Calcium 500 + D] magnesium oxide 400 mg PO DAILY #90 tab-cap 10/23/17 01/24/18 multivitamin [Daily Multi-Vitamin] 1 ea PO DAILY #90 tab-cap 10/23/17 01/11/18 Previous Rx's Medication Instructions Recorded trazodone 200 mg PO HS #14 tab-cap 02/09/17 calcium carbonate-vitamin D3 1 ea PO BID #180 tab-cap 10/23/17 [Calcium 500 + D] magnesium oxide 400 mg PO DAILY #90 tab-cap 10/23/17 multivitamin [Daily Multi-Vitamin] 1 ea PO DAILY #90 tab-cap 10/23/17 Allergies Allergy/AdvReac Type Severity Reaction Status Date / Time gabapentin Allergy Unknown unknown Unverified 01/24/18 12:16 aripiprazole [From Abilify] AdvReac Mild Psychosis Unverified 01/24/18 12:16 General Stated Complaint: Sorethroat LASHELL: 5 Review of Systems Constitutional Reports as per HPI and Denies headache(s) Eyes Reports as per HPI, Denies eye discharge and Denies irritation ENT Reports as per HPI, Denies abnormal hearing, Denies ear discharge, Reports otalgia (left), Reports facial pain (left maxillary sinus pain), Denies headache (s), Denies lip swelling, Denies mouth pain, Reports nasal congestion, Reports nasal discharge, Denies neck mass, Denies neck pain, Reports sinus pain, Denies sinus pressure, Reports sore throat and Denies throat swelling Cardiovascular Reports as per HPI, Denies chest pain and Denies dyspnea Respiratory Reports as per HPI, Denies cough, Denies pain on inspiration and Denies dyspnea Gastrointestinal Reports as per HPI, Denies abdominal pain, Denies change in bowel habits, Denies nausea and Denies vomiting Musculoskeletal Denies neck pain Integumentary/Breasts Reports as per HPI and Denies rash Neurologic Denies abnormal hearing and Denies headache(s) Allergic/Immunologic Denies lip swelling and Denies throat swelling PFSH Family History Mother No problems noted. Father No problems noted. Brother Heart disease Abdominal hysterectomy Colonoscopy - MAC EXC. ENDOMETRIOSIS (11/29/98) Ligation of fallopian tube Family History Mother No problems noted. Father No problems noted. Brother Heart disease Social History Smoking/Tobacco Use Status: Current every day Surgical History Abdominal hysterectomy Colonoscopy - MAC EXC. ENDOMETRIOSIS (11/29/98) Ligation of fallopian tube Social History Smoking/Tobacco Use Status: Current every day Exam Const General: cooperative, healthy appearing, comfortable, no acute distress, well developed and well groomed Nutritional Appearance: average body habitus and well nourished Orientation: alert and awake [facility] Head: normal to inspection, normocephalic and atraumatic Ears: hearing grossly normal bilaterally, external ears normal and TM's normal bilaterally General nose exam: external nose normal and nares normal Face and sinus: face symmetric and sinus tenderness (left) maxillary Mouth: oral mucosae normal, lip normal, tongue normal, oropharynx normal and moist mucous membranes Teeth and gingiva: dentition normal Throat: posterior oropharynx normal, tonsils normal and uvula midline Eyes General: appearance normal, both eyes and all related structures Neck Neck: normal visual inspection, full ROM, no lymphadenopathy and no meningeal signs Resp Effort & Inspection: normal respiratory effort, able to speak in complete sentences and no respiratory distress Auscultation: clear to auscultation bilaterally, no rales, no rhonchi and no wheezes Cardio Rate: regular rate Rhythm: regular rhythm Heart Sounds: S1 normal and S2 normal Skin General skin exam: no rashes or lesions noted Neuro General: alert and awake Cognition: normal cognition Speech: speech normal Gait: normal gait Psych Appearance: grossly normal and well kempt Mental Status: mental status grossly normal Speech and Movement: speech and movement normal Course Vital Signs Temperature 36.5 C 01/24/18 12:12 Pulse 110 H 01/24/18 12:12 Respiratory Rate 16 01/24/18 12:12 Blood Pressure 120/82 01/24/18 12:12 Pulse Oximetry 97 01/24/18 12:12 Temperature 36.5 C 01/24/18 12:12 Temperature Source Temporal Artery Scan 01/24/18 12:12 Pulse 110 H 01/24/18 12:12 Respiratory Rate 16 01/24/18 12:12 Respiratory Effort Non-Labored 01/24/18 12:14 Blood Pressure 120/82 01/24/18 12:12 Blood Pressure Position Sitting 01/24/18 12:12 Pulse Oximetry 97 01/24/18 12:12 Pain Level 6 01/24/18 12:12
== END 2018-01-24 13:16 | disposition home or self-care (01) ==
PROVIDERS: Emergency Provider Physician Assistant; PCP Family Medicine
DX: J06.9 Acute upper respiratory infection, unspecified (principal)
CPT/HCPCS: 99282

== ENCOUNTER 2018-02-07 18:55 | Emergency (ER) | payer MEDICARE, MEDICAID, SELFPAY ==
--- NOTE | 2018-02-07 09:35 | DI.RAD_ITS ---
SYMPTOM/DIAGNOSIS: FALL PELVIS AND LEFT HIP: Comparison is made with right hip dated 17 October 2017. There has been no change in a mild deformity at the right inferior pubic ramus. No acute fracture or dislocation is seen. The joint spaces are well maintained. There is minimal S-I joint spurring. IMPRESSION: No acute abnormality.
[2018-02-07 18:59] VITALS: PULSE 104; RESP 18; TEMP 36.8; O2SAT 98
[2018-02-07 19:06] VITALS: BP 103/69
--- NOTE | 2018-02-07 19:38 | DI.RAD_ITS ---
SYMPTOM/DIAGNOSIS: FALL LUMBAR SPINE: There is no evidence of fracture. The alignment appears normal. No spondylolysis, spondylolisthesis or scoliosis is seen. IMPRESSION: Negative lumbar spine.
[2018-02-07] MEDS: Lidocaine 5% Patch 1 PATCH TP (19:48)
[2018-02-07] MEDS: Cyclobenzaprine 10 MG TAB PO (19:49)
[2018-02-07] MEDS: Ibuprofen 600 MG TAB PO (19:49)
[2018-02-07] MEDS: clonazePAM 0.5 MG TAB PO (19:57)
[2018-02-07 19:58] VITALS: BP 95/64; PULSE 85; O2SAT 100
--- NOTE | 2018-02-07 20:06 | DI.VRAD_ITS ---
EXAM: XR Left Hip with Pelvis when Performed, 2 or 3 Views EXAM DATE/TIME: 02/07/2018 7:16 PM CLINICAL HISTORY: 52 years old, female; Pain; Hip pain; Left hip; Patient HX: Left hip pain, fall. TECHNIQUE: XR Left hip with pelvis when performed, 2 or 3 views COMPARISON: CT ABD PELVIS WITH CONTRAST 06/07/2017 9:26 PM FINDINGS: Bones/joints: Chronic-appearing right inferior pubic ramus deformity No acute fracture. Soft tissues: Normal. IMPRESSION: No definite acute fracture observed Dictated and Authenticated by: Austin Naylor MD. Ordering:DEYANIRA Gamez MD
--- NOTE | 2018-02-07 20:06 | DI.VRAD_ITS ---
EXAM: XR Lumbar Spine, 4 or 5 Views EXAM DATE/TIME: 02/07/2018 7:39 PM CLINICAL HISTORY: 52 years old, female; Pain; Low back pain; Patient HX: Low back pain, fall. TECHNIQUE: XR of the lumbar spine, 4 or 5 views. COMPARISON: CR LUMBAR SPINE COMPLETE 05/10/2012 9:06 AM FINDINGS: Vertebrae: No acute fracture. Normal alignment. Soft tissues: Normal. Moderate stool in the colon IMPRESSION: No acute fracture observed Dictated and Authenticated by: Austin Naylor MD. Ordering:DEYANIRA Gamez MD
--- NOTE | 2018-02-07 20:29 | NUR.NOTE ---
Nursing Note:pt noted to be sleeping in bed
[2018-02-07] MEDS: Amitriptyline 25 MG TAB PO (20:30)
--- NOTE | 2018-02-07 21:43 | W.ED.GENAD ---
Discharge Plan Disposition Patient Disposition: HOME Discharge Details Chief Complaint: Orthopedic Primary Care Provider: Eliot Sanchez ED Provider: Franco Larkin Home Meds and New Rx's Prescriptions: Continued trazodone 100 MG tablet 200 mg PO HS Qty: 14 RF: 0 clonazepam 0.5 MG tablet,disintegrating 0.5 mg PO TID PRNQty: 60 RF: 0 quetiapine [Seroquel] 100 MG tablet 100 mg PO HS RF: 0 amitriptyline 25 MG tablet 25 mg PO TID RF: 0 amitriptyline 100 MG tablet 100 mg PO HS RF: 0 multivitamin [Daily Multi-Vitamin] 1 EACH tablet 1 ea PO DAILY Qty: 90 RF: 3 magnesium oxide 400 MG tablet 400 mg PO DAILY Qty: 90 RF: 3 calcium carbonate-vitamin D3 [Calcium 500 + D] 1 EACH tablet 1 ea PO BID Qty: 180 RF: 3 Discharge Data Discharge Date/Time-TO BE ENTERED AT DEPARTURE: 02/07/18 22:20 Medical Decision Making Patient presenting to the emergency department status post fall. Patient states that yesterday evening she took her normally prescribed meds and when she got up in the middle the night she felt confused and fell landing on her left hip. She states that she has been able to bear weight but pain has increased throughout the day and was concerned for possible fracture as she has fallen previously fractured her right leg. Patient has bilateral lower back pain and some left hip pain otherwise unremarkable examination. Patient is fully neurologically intact with no obvious neurological dysfunction the patient is alert and oriented x4. Perform plain film imaging of lower back. The results patient given Flexeril, ibuprofen, and lidocaine patch. Pending plain film imaging results patient requesting her nightly meds which amitriptyline and clonazepam were ordered. Review of radiological imaging shows no acute fracture. Patient was able to get up and walk to the emergency department unassisted without any gait abnormalities and was fully weightbearing. Patient's condition is highly suggestive of soft tissue injury so she was encouraged to continue to use [id number] pain therapy and to advance activity as tolerated and to follow-up with primary care if not improving. Patient denies any recurrence of ill effects of her normally prescribed medications so she was informed to continue to watch for any side effects and to return immediately for any severe worsening of medication side effects or follow-up with her primary care as needed for any medication adjustments. After discussion of diagnosis and plan of care patient has no further needs, questions, or concerns and states clear understanding to return to the emergency department for any worsening symptoms. HPI General Mode of arrival: ambulatory. Date/Time Provider Initiated Documentation: 02/07/18 18:55. Limitations to Documentation: no limitations. Information obtained by: patient and RN notes reviewed. History of Present Illness 52 year old F presents to the emergency department with the chief complaint of left hip pain/ fall, described as moderate, with intensity rated at 6. Quality is described as aching and sharp, and is localized to the left and lower extremity. Patient extremity and distal. Patient started experiencing this hour(s) (14) and it has been constant. No relieving factors improve symptom(s), Movement worsens symptoms . Patient notes no other symptoms.. Patient did receive the following treatments prior to arrival, none Related Data Home Medications Medication Instructions Recorded Confirmed trazodone 200 mg PO HS #14 tab-cap 02/09/17 01/24/18 clonazepam 0.5 mg PO TID PRN #60 tab-cap 03/14/17 01/24/18 quetiapine [Seroquel] 100 mg PO HS tab-cap 03/21/17 01/24/18 amitriptyline 25 mg PO TID tab-cap 09/04/17 01/24/18 amitriptyline 100 mg PO HS tab-cap 09/04/17 01/24/18 calcium carbonate-vitamin D3 1 ea PO BID #180 tab-cap 10/23/17 01/11/18 [Calcium 500 + D] magnesium oxide 400 mg PO DAILY #90 tab-cap 10/23/17 01/24/18 multivitamin [Daily Multi-Vitamin] 1 ea PO DAILY #90 tab-cap 10/23/17 01/11/18 Previous Rx's Medication Instructions Recorded trazodone 200 mg PO HS #14 tab-cap 02/09/17 calcium carbonate-vitamin D3 1 ea PO BID #180 tab-cap 10/23/17 [Calcium 500 + D] magnesium oxide 400 mg PO DAILY #90 tab-cap 10/23/17 multivitamin [Daily Multi-Vitamin] 1 ea PO DAILY #90 tab-cap 10/23/17 Allergies Allergy/AdvReac Type Severity Reaction Status Date / Time gabapentin Allergy Unknown unknown Unverified 01/24/18 12:16 aripiprazole [From Abilify] AdvReac Mild Psychosis Unverified 01/24/18 12:16 General Stated Complaint: Orthopedic LASHELL: 3 Review of Systems Constitutional Denies chills and Denies fever(s) Cardiovascular Denies chest pain and Denies dyspnea Respiratory Denies cough and Denies dyspnea Gastrointestinal Denies abdominal pain, Denies nausea and Denies vomiting Genitourinary Denies pelvic pain, Denies urinary incontinence, Denies urinary hesitancy and Denies urinary urgency Musculoskeletal Reports as per HPI, Reports back pain and Reports radiating pain into limb Integumentary/Breasts Denies rash PFSH Abdominal hysterectomy Colonoscopy - MAC EXC. ENDOMETRIOSIS (11/29/98) Ligation of fallopian tube Family History Mother No problems noted. Father No problems noted. Brother Heart disease Social History Smoking/Tobacco Use Status: Current every day Exam Const General: cooperative, healthy appearing and no acute distress Orientation: alert, awake and oriented x3 HENMT Head: normal to inspection, no palpable skull fracture, normocephalic and atraumatic Eyes General: appearance normal, both eyes and all related structures Pupils: PERRL, normal by confrontation and accommodation normal Neck Neck: normal visual inspection, full ROM, no meningeal signs, trachea midline and supple Resp Effort & Inspection: normal respiratory effort and able to speak in complete sentences Auscultation: clear to auscultation bilaterally Cardio Rate: regular rate Rhythm: regular rhythm Heart Sounds: S1 normal and S2 normal Back/Spine/Pelvis Back: no CVA tenderness Thoracic/Lumbar Spine: paraspinal tenderness (bilateral), No lumbar spinal tenderness and No straight leg raise positive Pelvis: no pain with anterior-posterior compression, no buttock ecchymosis, no unilateral elevation of iliac crest, sciatic notch tenderness on the left and other (Mild discomfort with lateral palpation on the left) Coccyx: other (Mild discomfort with lateral palpation on the left) Skin General skin exam: no rashes or lesions noted Neuro General: alert, awake, oriented x3, gait normal, tone normal, moves all extremities, no meningeal signs, no focal motor deficits, CN's II-XI intact bilaterally, deep tendon reflexes 2+ bilaterally and not confused Coordination: Romberg test normal, tandem gait normal and Does not sway with eyes open Course Vital Signs Temperature 36.8 C 02/07/18 18:59 Pulse 104 H 02/07/18 18:59 Respiratory Rate 18 02/07/18 18:59 Pulse Oximetry 98 02/07/18 18:59 Temperature 36.8 C 02/07/18 18:59 Temperature Source Temporal Artery Scan 02/07/18 18:59 Pulse 85 02/07/18 19:58 Respiratory Rate 18 02/07/18 18:59 Respiratory Effort Non-Labored 02/07/18 19:03 Blood Pressure 95/64 L 02/07/18 19:58 Pulse Oximetry 100 02/07/18 19:58 Oxygen Delivery Method Room Air 02/07/18 19:58 Oxygen Flow Rate 0 02/07/18 19:58 Pain Level 7 02/07/18 19:58
--- NOTE | 2018-02-07 21:55 | ED.GENADUL_ITS ---
Discharge Plan Disposition Patient Disposition: HOME Discharge Details Chief Complaint: Orthopedic Primary Care Provider: Eliot Sanchez ED Provider: Franco Larkin Home Meds and New Rx's Prescriptions: Continued trazodone 100 MG tablet 200 mg PO HS Qty: 14 RF: 0 clonazepam 0.5 MG tablet,disintegrating 0.5 mg PO TID PRNQty: 60 RF: 0 quetiapine [Seroquel] 100 MG tablet 100 mg PO HS RF: 0 amitriptyline 25 MG tablet 25 mg PO TID RF: 0 amitriptyline 100 MG tablet 100 mg PO HS RF: 0 multivitamin [Daily Multi-Vitamin] 1 EACH tablet 1 ea PO DAILY Qty: 90 RF: 3 magnesium oxide 400 MG tablet 400 mg PO DAILY Qty: 90 RF: 3 calcium carbonate-vitamin D3 [Calcium 500 + D] 1 EACH tablet 1 ea PO BID Qty: 180 RF: 3 Discharge Data Discharge Date/Time-TO BE ENTERED AT DEPARTURE: 02/07/18 22:20 Medical Decision Making Patient presenting to the emergency department status post fall. Patient states that yesterday evening she took her normally prescribed meds and when she got up in the middle the night she felt confused and fell landing on her left hip. She states that she has been able to bear weight but pain has increased throughout the day and was concerned for possible fracture as she has fallen previously fractured her right leg. Patient has bilateral lower back pain and some left hip pain otherwise unremarkable examination. Patient is fully neurologically intact with no obvious neurological dysfunction the patient is alert and oriented x4. Perform plain film imaging of lower back. The results patient given Flexeril, ibuprofen, and lidocaine patch. Pending plain film imaging results patient requesting her nightly meds which amitriptyline and clonazepam were ordered. Review of radiological imaging shows no acute fracture. Patient was able to get up and walk to the emergency department unassisted without any gait abnormalities and was fully weightbearing. Patient's condition is highly suggestive of soft tissue injury so she was encouraged to continue to use [id number] pain therapy and to advance activity as tolerated and to follow-up with primary care if not improving. Patient denies any recurrence of ill effects of her normally prescribed medications so she was informed to continue to watch for any side effects and to return immediately for any severe worsening of medication side effects or follow-up with her primary care as needed for any medication adjustments. After discussion of diagnosis and plan of care patient has no further needs, questions, or concerns and states clear understanding to return to the emergency department for any worsening symptoms. HPI General Mode of arrival: ambulatory . Date/Time Provider Initiated Documentation: 02/07/18 18:55 . Limitations to Documentation: no limitations . Information obtained by: patient and RN notes reviewed . History of Present Illness 52 year old F presents to the emergency department with the chief complaint of left hip pain/ fall, described as moderate, with intensity rated at 6. Quality is described as aching and sharp, and is localized to the left and lower extremity. Patient extremity and distal. Patient started experiencing this hour(s) (14) and it has been constant. No relieving factors improve symptom(s), Movement worsens symptoms . Patient notes no other symptoms.. Patient did receive the following treatments prior to arrival, none Related Data Home Medications Medication Instructions Recorded Confirmed trazodone 200 mg PO HS #14 tab-cap 02/09/17 01/24/18 clonazepam 0.5 mg PO TID PRN #60 tab-cap 03/14/17 01/24/18 quetiapine [Seroquel] 100 mg PO HS tab-cap 03/21/17 01/24/18 amitriptyline 25 mg PO TID tab-cap 09/04/17 01/24/18 amitriptyline 100 mg PO HS tab-cap 09/04/17 01/24/18 calcium carbonate-vitamin D3 1 ea PO BID #180 tab-cap 10/23/17 01/11/18 [Calcium 500 + D] magnesium oxide 400 mg PO DAILY #90 tab-cap 10/23/17 01/24/18 multivitamin [Daily Multi-Vitamin] 1 ea PO DAILY #90 tab-cap 10/23/17 01/11/18 Previous Rx's Medication Instructions Recorded trazodone 200 mg PO HS #14 tab-cap 02/09/17 calcium carbonate-vitamin D3 1 ea PO BID #180 tab-cap 10/23/17 [Calcium 500 + D] magnesium oxide 400 mg PO DAILY #90 tab-cap 10/23/17 multivitamin [Daily Multi-Vitamin] 1 ea PO DAILY #90 tab-cap 10/23/17 Allergies Allergy/AdvReac Type Severity Reaction Status Date / Time gabapentin Allergy Unknown unknown Unverified 01/24/18 12:16 aripiprazole [From Abilify] AdvReac Mild Psychosis Unverified 01/24/18 12:16 General Stated Complaint: Orthopedic LASHELL: 3 Review of Systems Constitutional Denies chills and Denies fever(s) Cardiovascular Denies chest pain and Denies dyspnea Respiratory Denies cough and Denies dyspnea Gastrointestinal Denies abdominal pain, Denies nausea and Denies vomiting Genitourinary Denies pelvic pain, Denies urinary incontinence, Denies urinary hesitancy and Denies urinary urgency Musculoskeletal Reports as per HPI, Reports back pain and Reports radiating pain into limb Integumentary/Breasts Denies rash PFSH Abdominal hysterectomy Colonoscopy - MAC EXC. ENDOMETRIOSIS (11/29/98) Ligation of fallopian tube Family History Mother No problems noted. Father No problems noted. Brother Heart disease Social History Smoking/Tobacco Use Status: Current every day Exam Const General: cooperative, healthy appearing and no acute distress Orientation: alert, awake and oriented x3 HENMT Head: normal to inspection, no palpable skull fracture, normocephalic and atraum atic Eyes General: appearance normal, both eyes and all related structures Pupils: PERRL, normal by confrontation and accommodation normal Neck Neck: normal visual inspection, full ROM, no meningeal signs, trachea midline and supple Resp Effort & Inspection: normal respiratory effort and able to speak in complete sentences Auscultation: clear to auscultation bilaterally Cardio Rate: regular rate Rhythm: regular rhythm Heart Sounds: S1 normal and S2 normal Back/Spine/Pelvis Back: no CVA tenderness Thoracic/Lumbar Spine: paraspinal tenderness (bilateral), No lumbar spinal tenderness and No straight leg raise positive Pelvis: no pain with anterior-posterior compression, no buttock ecchymosis, no unilateral elevation of iliac crest, sciatic notch tenderness on the left and other (Mild discomfort with lateral palpation on the left) Coccyx: other (Mild discomfort with lateral palpation on the left) Skin General skin exam: no rashes or lesions noted Neuro General: alert, awake, oriented x3, gait normal, tone normal, moves all extr emities, no meningeal signs, no focal motor deficits, CN's II-XI intact bilaterally, deep tendon reflexes 2+ bilaterally and not confused Coordination: Romberg test normal, tandem gait normal and Does not sway with eyes open Course Vital Signs Temperature 36.8 C 02/07/18 18:59 Pulse 104 H 02/07/18 18:59 Respiratory Rate 18 02/07/18 18:59 Pulse Oximetry 98 02/07/18 18:59 Temperature 36.8 C 02/07/18 18:59 Temperature Source Temporal Artery Scan 02/07/18 18:59 Pulse 85 02/07/18 19:58 Respiratory Rate 18 02/07/18 18:59 Respiratory Effort Non-Labored 02/07/18 19:03 Blood Pressure 95/64 L 02/07/18 19:58 Pulse Oximetry 100 02/07/18 19:58 Oxygen Delivery Method Room Air 02/07/18 19:58 Oxygen Flow Rate 0 02/07/18 19:58 Pain Level 7 02/07/18 19:58
== END 2018-02-07 22:20 | disposition home or self-care (01) ==
PROVIDERS: Emergency Provider Nurse Practitioner Family; PCP Family Medicine
DX: M25.552 Pain in left hip (principal); M54.5 Low back pain
CPT/HCPCS: 99284; 72110; 73502

== ENCOUNTER 2018-04-11 00:36 | Outpatient (CLI) | payer MEDICARE, MEDICAID, SELFPAY ==
--- NOTE | 2018-04-11 06:47 | DI.US_ITS ---
SYMPTOM/DIAGNOSIS: ABD DISTENSION, WT GAIN, R14.0, EPIGASTRIC PAIN ABDOMEN ULTRASOUND: Hepatic parenchyma appears mildly heterogeneous with no focal mass. Gallbladder is partially contracted, no gallbladder wall thickening or cholelithiasis is seen. No biliary dilatation is seen. Pancreas not ideally visualized but appears grossly intact. The kidneys are unremarkable in appearance. Spleen appears normal. Abdominal aorta and IVC are of normal diameter. CONCLUSION: No evidence of acute intra-abdominal process.
[2018-04-11 08:27] LABS: ALT 26 U/L (12-78); AST 30 U/L (15-37); Albumin 3.5 g/dL (3.4-5.0); Alkaline Phosphatase 180 U/L (46-116); Anion Gap 10.7 mmol/L (3-11); BUN 19 mg/dL (7-18); Bilirubin, Total 0.2 mg/dL (0.2-1.0); CO2 27.3 mmol/L (21.0-32.0); CREATININE 1.06 mg/dL (0.55-1.02); Calcium 8.6 mg/dL (8.5-10.1); Chloride 104 mmol/L (98-107); Estimated GFR 54.87 (mL/min/1.73m2); Glucose 73 mg/dL (70-100); Potassium 4.3 mmol/L (3.5-5.1); Sodium 142 mmol/L (136-145); Total Protein 7.6 g/dL (6.4-8.2)
[2018-04-11 08:55] LABS: Abs Immature Grans 0.12 k/cumm (0.0-0.09); Absolute Basophil Count 0.04 k/cumm (0.0-0.2); Absolute Eosinophil Count 0.16 k/cumm (0.0-0.7); Absolute Lymphocyte Count 3.07 k/cumm (1.2-3.4); Absolute Monocyte Count 0.49 k/cumm (0.11-0.7); Basophils % 0.3; Eosinophils % 1.3; HCT 39.6 % (36.0-46.0); HGB 12.4 g/dL (12.0-15.5); Lymphocytes % 25.7; Mean Corp. HGB Concentration 31.3 g/dL (32.0-36.0); Mean Corpuscular Hemoglobin 31.1 pg (27.0-33.0); Mean Corpuscular Volume 99.2 fL (80-95); Mean Platelet Volume 9.2 fL (8.0-11.0); Monocytes % 4.1; Neutrophils % 67.6; Platelet Count 288 x1000/uL (130-400); RBC 3.99 m/cumm (4.00-5.20); RBC Distribution Width 13.9 % (11.7-14.6); White Blood Cell Count 11.93 k/cumm (4.4-10.8)
[2018-04-11 08:56] LABS: Absolute Neutrophil Count 8.06 k/cumm (1.2-6.7)
== END 2018-04-11 00:56 ==
PROVIDERS: PCP Family Medicine; Visit Provider Family Medicine
DX: R14.0 Abdominal distension (gaseous) (principal); R10.13 Epigastric pain; R63.5 Abnormal weight gain
CPT/HCPCS: 36415; 80053; 76700; 85025

== ENCOUNTER 2018-04-16 19:00 | Emergency (ER) | payer MEDICARE, MEDICAID, SELFPAY ==
[2018-04-16 19:05] VITALS: BP 122/80; PULSE 129; RESP 16; TEMP 36.3; O2SAT 98
--- NOTE | 2018-04-16 19:17 | ED.GENADUL_ITS ---
Discharge Plan Disposition Patient Disposition: HOME Condition: Stable Discharge Details Chief Complaint: Orthopedic Clinical Impression: Lumbar contusion, Shingles Primary Care Provider: Eliot Sanchez ED Provider: Caio Borja Home Meds and New Rx's Prescriptions: New acyclovir 800 mg tablet 800 mg PO Q4H 7 Days Qty: 42 RF: 0 No Action trazodone 100 MG tablet 200 mg PO HS Qty: 14 RF: 0 clonazepam 0.5 MG tablet,disintegrating 0.5 mg PO TID PRNQty: 60 RF: 0 quetiapine [Seroquel] 100 MG tablet 100 mg PO HS RF: 0 amitriptyline 25 MG tablet 25 mg PO TID RF: 0 amitriptyline 100 MG tablet 100 mg PO HS RF: 0 multivitamin [Daily Multi-Vitamin] 1 EACH tablet 1 ea PO DAILY Qty: 90 RF: 3 magnesium oxide 400 MG tablet 400 mg PO DAILY Qty: 90 RF: 3 calcium carbonate-vitamin D3 [Calcium 500 + D] 1 EACH tablet 1 ea PO BID Qty: 180 RF: 3 Lyrica 300 mg capsule 300 mg PO BID Qty: 60 RF: 5 Discharge Instructions Instructions: Shingles (ED) Additional Instructions: your xray did not show any broken bones Follow up with your primary care provider within a week IF you develop severe new pain elsewhere such as abdomen, chest or have difficulty breathing return to the emergency department for reevaluation Medical Decision Making Pt states she slipped on ice/snow on stairs 3 days ago and landed on lower back. Denies head trauma or loc and has no headache or n/v since. HAs no neck pain even on palpation or rom. No chest pain, sob and abdominal pain. She has been getting worked up for abdominal distention over the past few weeks by pcp and u/s done 5 days ago showed no acute pathology, no acsites and normal aorta. HAs no abdominal tenderness at this time to suggest truamatic injury. She has pain in lower back to right of midline and in right hip though has full rom, no sadddle anesthesia and no difficulty urinating so doubt spinal cord injury. Will xray hip and lumbar spine though suspect contusion. She also notes a painful r praful in right groin area for 3 days. HAs had shingles per pt in past and feels similar to that. She has a maculopapular rash with vesicles that is about 4cm in diameter in right groin area, no crepitus or severe pain with palpation, suspect shingles and will start antivirals for this. xray's negative, she remains stable. Will d/c with antiviral tx and advised f/u with pcp and return precautions given Differential Diagnosis fx, dislocation, contusion Imaging Data Radiologic Study: Attestation: I personally reviewed and interpreted this imaging study as follows: Imaging: X-Ray Radiologist's impression: no acute findings on lumbar spine xray Radiologic Study #2: Attestation: I personally reviewed and interpreted this imaging study as follows: Imaging: X-Ray Radiologist's impression: no acute findings on hip/pelvis xray HPI General Mode of arrival: ambulatory . Date/Time Provider Initiated Documentation: 04/16/18 19:01 . Limitations to Documentation: no limitations . Information obtained by: patient . History of Present Illness 52 year old F presents to the emergency department with the chief complaint of low back pain, described as moderate, with intensity rated at 5. Quality is described as aching, Patient reports no radiation. Patient started experiencing this day(s) (3) No relieving factors improve symptom(s), No exacerbating factors reported . Patient notes other (rash in perianal area per pt for 4 days). Patient did receive the following treatments prior to arrival, none Related Data Home Medications Medication Instructions Recorded Confirmed trazodone 200 mg PO HS #14 tab-cap 02/09/17 04/16/18 clonazepam 0.5 mg PO TID PRN #60 tab-cap 03/14/17 04/16/18 quetiapine [Seroquel] 100 mg PO HS tab-cap 03/21/17 04/16/18 amitriptyline 25 mg PO TID tab-cap 09/04/17 04/16/18 amitriptyline 100 mg PO HS tab-cap 09/04/17 04/16/18 calcium carbonate-vitamin D3 1 ea PO BID #180 tab-cap 10/23/17 04/16/18 [Calcium 500 + D] magnesium oxide 400 mg PO DAILY #90 tab-cap 10/23/17 04/16/18 multivitamin [Daily Multi-Vitamin] 1 ea PO DAILY #90 tab-cap 10/23/17 04/16/18 pregabalin 300 mg capsule 300 mg PO BID #60 cap 04/03/18 04/16/18 acyclovir 800 mg PO Q4H 7 Days #42 tab 04/16/18 Previous Rx's Medication Instructions Recorded trazodone 200 mg PO HS #14 tab-cap 02/09/17 calcium carbonate-vitamin D3 1 ea PO BID #180 tab-cap 10/23/17 [Calcium 500 + D] magnesium oxide 400 mg PO DAILY #90 tab-cap 10/23/17 multivitamin [Daily Multi-Vitamin] 1 ea PO DAILY #90 tab-cap 10/23/17 pregabalin 300 mg capsule 300 mg PO BID #60 cap 04/03/18 acyclovir 800 mg PO Q4H 7 Days #42 tab 04/16/18 Allergies Allergy/AdvReac Type Severity Reaction Status Date / Time gabapentin Allergy Unknown unknown Unverified 04/16/18 19:09 aripiprazole [From Abilify] AdvReac Mild Psychosis Unverified 04/16/18 19:09 General LASHELL: 3 Review of Systems Review of Systems All systems reviewed & are unremarkable except as noted in HPI and below Constitutional Denies chills, Denies fever(s) and Denies weakness ENT Denies change in voice Cardiovascular Denies chest pain and Denies dyspnea Respiratory Denies cough and Denies dyspnea Gastrointestinal Denies abdominal pain, Denies nausea and Denies vomiting Musculoskeletal Denies joint swelling Neurologic Denies weakness Psychiatric Denies depression PFSH Surgical History Abdominal hysterectomy Colonoscopy - MAC EXC. ENDOMETRIOSIS (11/29/98) Ligation of fallopian tube Social History Smoking and Tabacco status: Current every day Exam Const General: no acute distress Orientation: alert HENMT Head: normal to inspection Ears: external ears normal General nose exam: external nose normal Mouth: moist mucous membranes Eyes General: appearance normal, both eyes and all related structures Neck Neck: normal visual inspection Resp Effort & Inspection: normal respiratory effort and able to speak in complete sentences Cardio Rate: regular rate (HR 96 on my exam) Skin General skin exam: elasticity normal Neuro General: alert and oriented x3 Extrem General: normal to inspection Psych Mental Status: mental status grossly normal
--- NOTE | 2018-04-16 19:19 | DI.RAD_ITS ---
SYMPTOM/DIAGNOSIS: PAIN, S/P FALL LUMBAR SPINE: AP, lateral and bilateral oblique views. There are five lumbar type vertebral bodies. There is normal alignment. No spondylolysis or spondylolisthesis is seen. No acute fractures or subluxations are seen. The disc spaces and posterior elements are all well maintained. There does appear to be a moderate amount of stool in the colon raising the question of constipation. IMPRESSION: No acute fracture or subluxation in the lumbar spine. RIGHT HIP AND PELVIS: Two views. No acute fracture or dislocation is seen. The soft tissues are unremarkable. IMPRESSION: No acute fracture or dislocation.
[2018-04-16] MEDS: Acyclovir 400 MG TAB 800 MG PO (19:41)
[2018-04-16] MEDS: Ibuprofen 600 MG TAB PO (19:41)
--- NOTE | 2018-04-16 20:14 | DI.VRAD_ITS ---
EXAM: XR Lumbar Spine, 4 or 5 Views EXAM DATE/TIME: 04/16/2018 7:39 PM CLINICAL HISTORY: 52 years old, female; Pain; Low back pain; Patient HX: Fall last week with weakness in hip and back TECHNIQUE: XR of the lumbar spine, 4 or 5 views. Technologist notes: Main COMPARISON: CR XR lumbar spine complete 02/07/2018 7:30 PM FINDINGS: Vertebrae: There is no evidence of acute fracture. There is no evidence of malalignment or dislocation. Soft tissues: Normal. Other findings: Findings consistent with constipation IMPRESSION: There is no evidence of acute fracture. Dictated and Authenticated by: Jordon Acevedo MD. Ordering:OSBALDO Kearney MD
--- NOTE | 2018-04-16 20:14 | DI.VRAD_ITS ---
EXAM: XR Right Hip with Pelvis when Performed, 2 or 3 Views EXAM DATE/TIME: 04/16/2018 7:20 PM CLINICAL HISTORY: 52 years old, female; Pain; Hip pain; Right hip; Patient HX: Fall last week with pain in back, hip and down leg TECHNIQUE: XR Right hip with pelvis when performed, 2 or 3 views Technologist notes: Main COMPARISON: CR RIGHT HIP COMPLETE POST REDUC 10/17/2017 8:46 PM FINDINGS: Bones/joints: Degenerative changes in both hips No acute fracture. There is no evidence of malalignment or dislocation. Soft tissues: Normal. IMPRESSION: No acute fracture. There is no evidence of malalignment or dislocation. Dictated and Authenticated by: Jordon Acevedo MD. Ordering:OSBALDO Kearney MD
== END 2018-04-16 20:32 | disposition home or self-care (01) ==
PROVIDERS: Emergency Provider Emergency Medicine; PCP Family Medicine
DX: S30.0XXA Contusion of lower back and pelvis, initial encounter (principal); B02.9 Zoster without complications; M25.551 Pain in right hip; W00.0XXA Fall on same level due to ice and snow, initial encounter
CPT/HCPCS: 99284; 72110; 73502

== ENCOUNTER 2018-06-08 23:43 | Emergency (ER) | payer MEDICARE, MEDICAID, SELFPAY ==
[2018-06-08 23:46] VITALS: BP 116/77; PULSE 85; RESP 18; TEMP 36.6; O2SAT 99
--- NOTE | 2018-06-09 | W.ED.GENAD ---
Discharge Plan Disposition Patient Disposition: HOME Condition: Stable Discharge Details Chief Complaint: PsychEval Clinical Impression: Deliberate self-cutting Primary Care Provider: Eliot Sanchez ED Provider: Caio Borja Home Meds and New Rx's Prescriptions: No Action meloxicam 7.5 mg tablet 7.5 mg PO DAILY Qty: 30 RF: 2 trazodone 100 MG tablet 200 mg PO HS Qty: 14 RF: 0 clonazepam 0.5 MG tablet,disintegrating 0.5 mg PO TID PRNQty: 60 RF: 0 quetiapine [Seroquel] 100 MG tablet 100 mg PO HS RF: 0 amitriptyline 25 MG tablet 25 mg PO TID RF: 0 amitriptyline 100 MG tablet 100 mg PO HS RF: 0 multivitamin [Daily Multi-Vitamin] 1 EACH tablet 1 ea PO DAILY Qty: 90 RF: 3 magnesium oxide 400 MG tablet 400 mg PO DAILY Qty: 90 RF: 3 calcium carbonate-vitamin D3 [Calcium 500 + D] 1 EACH tablet 1 ea PO BID Qty: 180 RF: 3 Lyrica 300 mg capsule 300 mg PO BID Qty: 60 RF: 5 Discharge Instructions Additional Instructions: wash your wounds several times a day to try and keep them clean if redness spreads away from the wound return to the emergency department [facility] will call you in the morning. If you have any thoughts of wanting to harm yourself or other you can call the public information relations manager provider or return to the emergency department Medical Decision Making 52 yo female with hx of depression comes in with chief complaint of self inflicted superficial cuts to the arms and upper thigh that she did earlier today. She states she did this out of frustration and denies si or wanting to harm self. She is caox4 and clinically sober onexam, denies drug use. She has multiple very superficial abrasions to the forearms and right upper thigh that are not deep enough to close with sutures, and has full rom of the joints and hands and legs so doubt tendon injury. will discuss with mental health spoke with Colby Dumas from mental health who states he has spoken with her several times and was not concerned about her safety in terms of her mental health. He agrees that she doesn't require any psychiatric hospitalization at this time given these were impulse cutting and has no si/hi and he is planning on f/u with her inthe morning. She understands she can return if worsening and can call [facility] at any time Differential Diagnosis self cutting, depression, si HPI General Mode of arrival: ambulatory. Date/Time Provider Initiated Documentation: 06/09/18 00:00. Limitations to Documentation: no limitations. Information obtained by: patient. History of Present Illness 52 year old F presents to the emergency department with the chief complaint of self inflicted lacerations, described as moderate, and is localized to the upper extremity and lower extremity. Patient started experiencing this hour(s) (12) and it has been constant. No relieving factors improve symptom(s), No exacerbating factors reported . Patient notes no other symptoms.. Patient did receive the following treatments prior to arrival, none Related Data Home Medications Medication Instructions Recorded Confirmed trazodone 200 mg PO HS #14 tab-cap 02/09/17 06/08/18 clonazepam 0.5 mg PO TID PRN #60 tab-cap 03/14/17 06/08/18 quetiapine [Seroquel] 100 mg PO HS tab-cap 03/21/17 06/08/18 amitriptyline 25 mg PO TID tab-cap 09/04/17 06/08/18 amitriptyline 100 mg PO HS tab-cap 09/04/17 06/08/18 calcium carbonate-vitamin D3 1 ea PO BID #180 tab-cap 10/23/17 06/08/18 [Calcium 500 + D] magnesium oxide 400 mg PO DAILY #90 tab-cap 10/23/17 06/08/18 multivitamin [Daily Multi-Vitamin] 1 ea PO DAILY #90 tab-cap 10/23/17 06/08/18 meloxicam 7.5 mg tablet 7.5 mg PO DAILY #30 tab 05/01/18 06/08/18 pregabalin 300 mg capsule 300 mg PO BID #60 cap 05/21/18 06/08/18 Previous Rx's Medication Instructions Recorded trazodone 200 mg PO HS #14 tab-cap 02/09/17 calcium carbonate-vitamin D3 1 ea PO BID #180 tab-cap 10/23/17 [Calcium 500 + D] magnesium oxide 400 mg PO DAILY #90 tab-cap 10/23/17 multivitamin [Daily Multi-Vitamin] 1 ea PO DAILY #90 tab-cap 10/23/17 meloxicam 7.5 mg tablet 7.5 mg PO DAILY #30 tab 05/01/18 pregabalin 300 mg capsule 300 mg PO BID #60 cap 05/21/18 Allergies Allergy/AdvReac Type Severity Reaction Status Date / Time gabapentin Allergy Unknown unknown Unverified 06/08/18 23:51 aripiprazole [From Abilify] AdvReac Mild Psychosis Unverified 06/08/18 23:51 General Stated Complaint: PsychEval LASHELL: 2 Review of Systems Review of Systems All systems reviewed & are unremarkable except as noted in HPI and below Constitutional Denies chills, Denies fever(s) and Denies weakness Cardiovascular Denies chest pain and Denies dyspnea Respiratory Denies cough and Denies dyspnea Gastrointestinal Denies abdominal pain, Denies nausea and Denies vomiting Genitourinary Denies dysuria Integumentary/Breasts Denies rash Neurologic Denies weakness PFSH Social History Smoking/Tobacco Use Status: Current every day Alcohol Intake: current Alcohol Intake frequency: other Drug use: Current Sobriety Substance use type: does not use Do you feel safe in your relationship?: Yes Exam Const General: no acute distress Orientation: alert HENMT Head: normal to inspection Ears: external ears normal General nose exam: external nose normal Mouth: moist mucous membranes Eyes General: appearance normal, both eyes and all related structures Neck Neck: normal visual inspection Resp Effort & Inspection: normal respiratory effort and able to speak in complete sentences Cardio Rate: regular rate Neuro General: alert and oriented x3 Extrem General: normal to inspection Psych Mental Status: mental status grossly normal Course Vital Signs Temperature 36.6 C 06/08/18 23:46 Pulse 85 06/08/18 23:46 Respiratory Rate 18 06/08/18 23:46 Blood Pressure 116/77 06/08/18 23:46 Pulse Oximetry 99 06/08/18 23:46 Temperature 36.6 C 06/08/18 23:46 Temperature Source Temporal Artery Scan 06/08/18 23:46 Pulse 85 06/08/18 23:46 Respiratory Rate 18 06/08/18 23:46 Respiratory Effort Non-Labored 06/08/18 23:46 Blood Pressure 116/77 06/08/18 23:46 Blood Pressure Position Sitting 06/08/18 23:46 Pulse Oximetry 99 06/08/18 23:46 Oxygen Delivery Method Room Air 06/08/18 23:46 Oxygen Flow Rate 0 06/08/18 23:46 Pain Level 0 06/08/18 23:46
--- NOTE | 2018-06-09 00:08 | ED.GENADUL_ITS ---
Discharge Plan Disposition Patient Disposition: HOME Condition: Stable Discharge Details Chief Complaint: PsychEval Clinical Impression: Deliberate self-cutting Primary Care Provider: Eliot Sanchez ED Provider: Caio Borja Home Meds and New Rx's Prescriptions: No Action meloxicam 7.5 mg tablet 7.5 mg PO DAILY Qty: 30 RF: 2 trazodone 100 MG tablet 200 mg PO HS Qty: 14 RF: 0 clonazepam 0.5 MG tablet,disintegrating 0.5 mg PO TID PRNQty: 60 RF: 0 quetiapine [Seroquel] 100 MG tablet 100 mg PO HS RF: 0 amitriptyline 25 MG tablet 25 mg PO TID RF: 0 amitriptyline 100 MG tablet 100 mg PO HS RF: 0 multivitamin [Daily Multi-Vitamin] 1 EACH tablet 1 ea PO DAILY Qty: 90 RF: 3 magnesium oxide 400 MG tablet 400 mg PO DAILY Qty: 90 RF: 3 calcium carbonate-vitamin D3 [Calcium 500 + D] 1 EACH tablet 1 ea PO BID Qty: 180 RF: 3 Lyrica 300 mg capsule 300 mg PO BID Qty: 60 RF: 5 Discharge Instructions Additional Instructions: wash your wounds several times a day to try and keep them clean if redness spreads away from the wound return to the emergency department [facility] will call you in the morning. If you have any thoughts of wanting to harm yourself or other you can call the clinical nutritionist provider or return to the emergency department Medical Decision Making 52 yo female with hx of depression comes in with chief complaint of self inflicted superficial cuts to the arms and upper thigh that she did earlier today. She states she did this out of frustration and denies si or wanting to harm self. She is caox4 and clinically sober onexam, denies drug use. She has multiple very superficial abrasions to the forearms and right upper thigh that are not deep enough to close with sutures, and has full rom of the joints and hands and legs so doubt tendon injury. will discuss with mental health spoke with Colby Dumas from mental health who states he has spoken with her several times and was not concerned about her safety in terms of her mental health. He agrees that she doesn't require any psychiatric hospitalization at this time given these were impulse cutting and has no si/hi and he is planning on f/u with her inthe morning. She understands she can return if worsening and can call [facility] at any time Differential Diagnosis self cutting, depression, si HPI General Mode of arrival: ambulatory . Date/Time Provider Initiated Documentation: 06/09/18 00:00 . Limitations to Documentation: no limitations . Information obtained by: patient . History of Present Illness 52 year old F presents to the emergency department with the chief complaint of self inflicted lacerations, described as moderate, and is localized to the upper extremity and lower extremity. Patient started experiencing this hour(s) (12) and it has been constant. No relieving factors improve symptom(s), No exacerbating factors reported . Patient notes no other symptoms.. Patient did receive the following treatments prior to arrival, none Related Data Home Medications Medication Instructions Recorded Confirmed trazodone 200 mg PO HS #14 tab-cap 02/09/17 06/08/18 clonazepam 0.5 mg PO TID PRN #60 tab-cap 03/14/17 06/08/18 quetiapine [Seroquel] 100 mg PO HS tab-cap 03/21/17 06/08/18 amitriptyline 25 mg PO TID tab-cap 09/04/17 06/08/18 amitriptyline 100 mg PO HS tab-cap 09/04/17 06/08/18 calcium carbonate-vitamin D3 1 ea PO BID #180 tab-cap 10/23/17 06/08/18 [Calcium 500 + D] magnesium oxide 400 mg PO DAILY #90 tab-cap 10/23/17 06/08/18 multivitamin [Daily Multi-Vitamin] 1 ea PO DAILY #90 tab-cap 10/23/17 06/08/18 meloxicam 7.5 mg tablet 7.5 mg PO DAILY #30 tab 05/01/18 06/08/18 pregabalin 300 mg capsule 300 mg PO BID #60 cap 05/21/18 06/08/18 Previous Rx's Medication Instructions Recorded trazodone 200 mg PO HS #14 tab-cap 02/09/17 calcium carbonate-vitamin D3 1 ea PO BID #180 tab-cap 10/23/17 [Calcium 500 + D] magnesium oxide 400 mg PO DAILY #90 tab-cap 10/23/17 multivitamin [Daily Multi-Vitamin] 1 ea PO DAILY #90 tab-cap 10/23/17 meloxicam 7.5 mg tablet 7.5 mg PO DAILY #30 tab 05/01/18 pregabalin 300 mg capsule 300 mg PO BID #60 cap 05/21/18 Allergies Allergy/AdvReac Type Severity Reaction Status Date / Time gabapentin Allergy Unknown unknown Unverified 06/08/18 23:51 aripiprazole [From Abilify] AdvReac Mild Psychosis Unverified 06/08/18 23:51 General Stated Complaint: PsychEval LASHELL: 2 Review of Systems Review of Systems All systems reviewed & are unremarkable except as noted in HPI and below Constitutional Denies chills, Denies fever(s) and Denies weakness Cardiovascular Denies chest pain and Denies dyspnea Respiratory Denies cough and Denies dyspnea Gastrointestinal Denies abdominal pain, Denies nausea and Denies vomiting Genitourinary Denies dysuria Integumentary/Breasts Denies rash Neurologic Denies weakness PFSH Social History Smoking/Tobacco Use Status: Current every day Alcohol Intake: current Alcohol Intake frequency: other Drug use: Current Sobriety Substance use type: does not use Do you feel safe in your relationship?: Yes Exam Const General: no acute distress Orientation: alert HENMT Head: normal to inspection Ears: external ears normal General nose exam: external nose normal Mouth: moist mucous membranes Eyes General: appearance normal, both eyes and all related structures Neck Neck: normal visual inspection Resp Effort & Inspection: normal respiratory effort and able to speak in complete sentences Cardio Rate: regular rate Neuro General: alert and oriented x3 Extrem General: normal to inspection Psych Mental Status: mental status grossly normal Course Vital Signs Temperature 36.6 C 06/08/18 23:46 Pulse 85 06/08/18 23:46 Respiratory Rate 18 06/08/18 23:46 Blood Pressure 116/77 06/08/18 23:46 Pulse Oximetry 99 06/08/18 23:46 Temperature 36.6 C 06/08/18 23:46 Temperature Source Temporal Artery Scan 06/08/18 23:46 Pulse 85 06/08/18 23:46 Respiratory Rate 18 06/08/18 23:46 Respiratory Effort Non-Labored 06/08/18 23:46 Blood Pressure 116/77 06/08/18 23:46 Blood Pressure Position Sitting 06/08/18 23:46 Pulse Oximetry 99 06/08/18 23:46 Oxygen Delivery Method Room Air 06/08/18 23:46 Oxygen Flow Rate 0 06/08/18 23:46 Pain Level 0 06/08/18 23:46
[2018-06-09 01:16] VITALS: BP 118/76; PULSE 83; RESP 18; O2SAT 99
== END 2018-06-09 01:10 | disposition home or self-care (01) ==
PROVIDERS: Emergency Provider Emergency Medicine; PCP Family Medicine
DX: F32.9 Major depressive disorder, single episode, unspecified (principal); S51.811A Laceration without foreign body of right forearm, initial encounter; S51.812A Laceration without foreign body of left forearm, initial encounter; S71.111A Laceration without foreign body, right thigh, initial encounter; S71.112A Laceration without foreign body, left thigh, initial encounter; X78.9XXA Intentional self-harm by unspecified sharp object, initial encounter
CPT/HCPCS: 99284

== ENCOUNTER 2018-07-12 02:33 | Outpatient (CLI) | payer MEDICARE, MEDICAID, SELFPAY ==
--- NOTE | 2018-07-12 10:54 | DI.RAD_ITS ---
SYMPTOMS/DIAGNOSIS: PERSISTENT COUGH, SMOKER, R05 PA AND LATERAL CHEST: Comparison is made with 8Nov18. The heart size is normal. The lungs appear clear with the exception of some apical scarring. No infiltrate, effusion, mass or adenopathy is seen. IMPRESSION: No acute abnormality.
[2018-07-12 12:17] LABS: Alkaline Phosphatase 164 U/L (46-116)
== END 2018-07-12 02:53 ==
PROVIDERS: PCP Family Medicine; Visit Provider Family Medicine
DX: R05 Cough (principal); R74.8 Abnormal levels of other serum enzymes; F17.200 Nicotine dependence, unspecified, uncomplicated
CPT/HCPCS: 36415; 71046; 84075

== ENCOUNTER 2018-08-04 17:39 | Inpatient (IN) | payer MEDICARE, MEDICAID, SELFPAY ==
[2018-08-04 17:41] VITALS: BP 97/67; PULSE 109; RESP 26; TEMP 37.3; O2SAT 90
--- NOTE | 2018-08-04 18:04 | DI.RAD_ITS ---
SYMPTOMS/DIAGNOSIS: CRACKLES RLL PA AND LATERAL CHEST: Comparison 07/12/18. The heart size and pulmonary vasculature are within normal limits. There is an infiltrate seen in the right lower lobe medially. No effusions or pneumothoraces are identified. The patient is rotated. The bones appear intact. IMPRESSION: Right lower lobe pneumonia.
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
[2018-08-04] MEDS: Normal Saline 1,000 ML 1000 ML IV (18:29)
[2018-08-04 18:33] LABS: Lactate-non-spesis 1.3 mmol/l (0.6-1.4)
[2018-08-04 18:37] LABS: Abs Immature Grans 0.03 k/cumm (0.0-0.09); HCT 38.5 % (36.0-46.0); HGB 12.8 g/dL (12.0-15.5); Mean Corp. HGB Concentration 33.2 g/dL (32.0-36.0); Mean Corpuscular Hemoglobin 30.8 pg (27.0-33.0); Mean Corpuscular Volume 92.8 fL (80-95); Mean Platelet Volume 10.9 fL (8.0-11.0); Platelet Count 112 x1000/uL (130-400); RBC 4.15 m/cumm (4.00-5.20); RBC Distribution Width 15.7 % (11.7-14.6); White Blood Cell Count 4.04 k/cumm (4.4-10.8)
[2018-08-04 18:55] LABS: Lipase 405 U/L (73-393)
[2018-08-04 18:56] LABS: Ammonia 27 umol/L (11-32)
[2018-08-04] MEDS: LORazepam 2 MG/ML VIAL 1 MG IVP (18:57)
[2018-08-04 18:58] LABS: Bilirubin Negative (Negative); Blood Negative (Negative); Clarity Clear; Glucose Negative (Negative); Ketones Trace mg/dL (Negative); Leukocyte Esterase Negative (Negative); Nitrite Negative (Negative); Urobilinogen 0.2 EU/dL (Up TO 0.2); pH 6.5 (5-8)
[2018-08-04 19:02] LABS: Absolute Lymphocyte Count 1.33 k/cumm (1.2-3.4); Absolute Monocyte Count 0.04 k/cumm (0.11-0.7); Absolute Neutrophil Count 2.67 k/cumm (1.2-6.7); Atypical Lymphocytes % 6; Diff Comment Manual Differential
[2018-08-04 19:06] LABS: ALT 27 U/L (12-78); AST 116 U/L (15-37); Albumin 2.8 g/dL (3.4-5.0); Alkaline Phosphatase 104 U/L (46-116); Anion Gap 10.7 mmol/L (3-11); BUN 23 mg/dL (7-18); Bilirubin, Total 0.2 mg/dL (0.2-1.0); CO2 24.3 mmol/L (21.0-32.0); CREATININE 0.82 mg/dL (0.55-1.02); Calcium 8.4 mg/dL (8.5-10.1); Chloride 97 mmol/L (98-107); Glucose 115 mg/dL (70-100); Magnesium 2.4 mg/dL (1.8-2.4); Potassium 3.6 mmol/L (3.5-5.1); Sodium 132 mmol/L (136-145); TSH (W/Ref FT4) 3.32 uIU/mL (0.358-3.74); Total Protein 7.2 g/dL (6.4-8.2)
[2018-08-04 19:08] LABS: Bacteria Few HPF (Negative); C & S Indicated? No; Casts Negative LPF (Negative); Crystals Negative HPF (Negative); Epithelial Cells Rare HPF (Negative); Mucus Moderate (Negative); Other Cells Rare Renal (Negative); RBC Negative (0-2); WBC 0-2 HPF (0-5)
[2018-08-04 19:10] LABS: D-Dimer 6657 ng/mlFEU (<500)
[2018-08-04 19:12] LABS: Troponin I < 0.02 ng/mL (0.00-0.06)
[2018-08-04 19:12] LABS: *AMPHETAMINES SCREEN URINE Negative (Negative); *BARBITURATES SCREEN URINE Negative (Negative); *BENZODIAZEPINES SCREEN URINE Negative (Negative); Cannabinoids THC Negative (Negative); Cocaine Screen,Urine Negative (Negative); METHADONE URINE SCREEN Negative (Negative); OPIATES URINE SCREEN Negative (Negative)
[2018-08-04 19:13] LABS: Tricyclic Antidepressants POSITIVE (Negative)
[2018-08-04] MEDS: cefTRIAXone 1 GM/50 ML BAG IVPB (19:14)
[2018-08-04] MEDS: Albuterol 2.5 MG/3 ML INH SOLN VIAL UPD (19:20)
--- NOTE | 2018-08-04 19:55 | DI.CT_ITS ---
SYMPTOMS/DIAGNOSIS: ALTERED MENTAL STATUS CT BRAIN: Noncontrast examination. Comparison 01/03/18. There is mild cerebral atrophy. No acute intracranial hemorrhage, infarct, midline shift or mass effect is identified. The ventricles are intact. The basilar cisterns are patent. The visualized paranasal sinuses are clear. The mastoid air cells are well pneumatized. The calvarium is intact. IMPRESSION: No significant change compared to the prior examination. No acute intracranial process.
[2018-08-04] MEDS: Normal Saline Flush 10 ML SYR IVP (20:12)
[2018-08-04] MEDS: Omnipaque 350 MG/ML 100 ML BTL IJ (20:12)
--- NOTE | 2018-08-04 20:15 | DI.CT_ITS ---
SYMPTOMS/DIAGNOSIS: ABD PAIN, LOW CENTRAL ABDOMEN CT ANGIOGRAPHY OF THE CHEST: CT angiography was performed with multi slice acquisition and multi planar and 3D reconstruction. Routine examination was performed. There is no evidence of a pulmonary embolus. The thoracic aorta is of normal caliber. No aneurysm or dissection is seen. The heart size is within normal limits. No significant pericardial effusion is seen. No findings to suggest right ventricular dysfunction are present. No significant thoracic adenopathy is seen. There may be a tiny right pleural effusion. No left pleural effusion is seen. No pneumothorax is identified. The tracheobronchial tree is unremarkable. There is an area of consolidation with air bronchograms in the right lower lobes suspicious for pneumonia. Air space opacities are also seen in the right middle lobe and left lingula. No acute osseous abnormality is identified. IMPRESSION: 1. No evidence of a pulmonary embolus, thoracic aortic dissection or aneurysm. 2. Air of consolidation in the right lower lobe with patchy opacities also seen in the right middle lobe and the left lingula suspicious for pneumonia. CT SCAN OF THE ABDOMEN AND PELVIS: Comparison is 01/03/18. The liver is normal in size. No suspicious hepatic mass is seen. The portal, superior mesenteric and splenic veins are patent. The gallbladder is negative. There is no biliary ductal dilatation present. The pancreas, spleen and adrenal glands are unremarkable as are the kidneys, ureters and urinary bladder. There is a Rao catheter in the bladder. The patient appears to be status post hysterectomy. The bowel shows no evidence of obstruction or inflammation. No findings to suggest an acute appendicitis are present. No abdominal or pelvic adenopathy, ascites or pneumoperitoneum is present. The abdominal aorta is of normal caliber. No aneurysmal dilatation is seen. The appearance of the celiac axis and mesenteric arteries are unremarkable on this venous imaging examination. There is asymmetry in size of the rectus abdominis muscles. This is new compared to the examination from 01/03/18. The left abdominis muscle is enlarged and an abdominal sheath hematoma can not be excluded. No evidence of active contrast extravasation is seen to suggest active bleeding. IMPRESSION: 1. New asymmetric enlargement of the left rectus abdominis muscle raising the question of a hematoma. No evidence to suggest active bleeding is seen. 2. No acute intra-abdominal or pelvic abnormality.
--- NOTE | 2018-08-04 20:27 | DI.VRAD_ITS ---
EXAM: CT Head Without Contrast EXAM DATE/TIME: 08/04/2018 6:09 PM CLINICAL HISTORY: 52 years old, female; Signs and symptoms; Altered mental status/memory loss; Confusion or disorientation; Patient HX: AMS TECHNIQUE: Imaging protocol: Axial computed tomography images of the head without contrast. Coronal and sagittal reformatted images were created and reviewed. Radiation optimization: All CT scans at this facility use at least one of these dose optimization techniques: automated exposure control; mA and/or kV adjustment per patient size (includes targeted exams where dose is matched to clinical indication); or iterative reconstruction. COMPARISON: CT HEAD CERVICAL SPINE WO 01/03/2018 12:46 PM FINDINGS: Brain: Moderate generalized atrophy for the patient's stated age, unchanged from 01/03/2018. Mild bilateral symmetrical prominence of the frontal CSF spaces which is unchanged as well, likely related to atrophy. No extra-axial hemorrhage. No evidence of acute intracranial hemorrhage. No evidence of acute or subacute intracranial ischemia/infarct. No intracranial mass lesions. Midline shift: No midline shift or herniation. Ventricles: Ventricles normal. Bones/joints: The calvarium and visualized facial bones are intact. Sinuses: Visualized paranasal sinuses are clear. Mastoid air cells: Visualized mastoid air cells are clear. Orbits: Orbital contents demonstrate no evidence of acute abnormality. Soft tissues: The scalp and visualized soft tissues are unremarkable. Vasculature: The visualized major intracranial arterial segments demonstrate no gross abnormality by noncontrast CT. IMPRESSION: 1. No acute intracranial process. No significant change from 01/03/2018. 2. Moderate generalized atrophy for the patient's stated age. Dictated and Authenticated by: New Lindsay MD. Ordering:KARLEY Ha MD
--- NOTE | 2018-08-04 20:31 | DI.VRAD_ITS ---
EXAM: XR Chest, 2 Views EXAM DATE/TIME: 08/04/2018 6:06 PM CLINICAL HISTORY: 52 years old, female; Signs and symptoms; Other: R lower lobe crackles TECHNIQUE: Imaging protocol: XR of the chest, 2 views. COMPARISON: CR XR CHEST 2V PA LATERAL 07/12/2018 10:59 AM FINDINGS: Lungs: Increased alveolar density in the medial right basilar distribution consistent with increased pulmonary infiltrate or atelectasis. Mild bilateral perihilar interstitial and groundglass alveolar attenuation which could reflect additional patchy perihilar infiltrates versus mild perihilar edema. Pulmonary vaculature normal. Pleural space: Trace right basilar effusion. No pneumothorax. Heart/Mediastinum: Heart size normal. No mediastinal widening. Bones/joints: No acute osseous abnormalities are identified. Other findings: No tracheal shift. IMPRESSION: 1. Alveolar opacity in the medial right lower lobe concerning for pulmonary infiltrate. No gross cavitation. 2. Additional patchy mild perihilar interstitial and alveolar densities which may reflect additional mild perihilar infiltrate versus mild edema. Dictated and Authenticated by: New Lindsay MD. Ordering:KARLEY Ha MD
--- NOTE | 2018-08-04 20:49 | DI.VRAD_ITS ---
EXAM: CT Angiography Chest With Contrast EXAM DATE/TIME: 08/04/2018 7:47 PM CLINICAL HISTORY: 52 years old, female; Other: Rll crackels; Abdominal pain; Localized; Prior surgery; Surgery date: 6+ months; Surgery type: Hysterectomy; Patient HX: Lower central abd pain TECHNIQUE: Imaging protocol: Axial computed tomographic angiography images of the chest with intravenous contrast using CT angiography protocol. Coronal and sagittal reformatted images were created and reviewed. 3D rendering: MIP reconstructed images were created and reviewed. Radiation optimization: All CT scans at this facility use at least one of these dose optimization techniques: automated exposure control; mA and/or kV adjustment per patient size (includes targeted exams where dose is matched to clinical indication); or iterative reconstruction. Contrast material: OMNIOPAQUE 350; Contrast volume: 100 ml; Contrast route: IV; COMPARISON: CT CHEST FOR PULMONARY EMBOLUS 06/13/2017 11:40 PM FINDINGS: Pulmonary arteries: The pulmonary arteries enhance appropriately with no evidence of pulmonary embolism. Aorta: The aorta enhances appropriately without evidence of dissection or aneurysm. Thyroid: The visualized thyroid gland demonstrates no gross abnormality. Lungs: No tracheobronchial abnormalities. Rounded 6.5 cm zone of consolidative alveolar density in the right infrahilar region in the medial right lower lobe consistent with pulmonary infiltrate. No evidence of cavitation/abscess. Additional patchy mild perihilar alveolar density is seen in the right middle lobe and superior lingular distribution of the left concerning for additional patchy elements of pulmonary infiltrate. Pleural space: Mild bilateral apical pleural/parenchymal scarring. No pulmonary nodules or mass lesions were identified. Trace right basilar pleural effusion. No pneumothorax. Heart: Heart size normal. No pericardial effusion. Mediastinum: The esophagus is largely contracted but demonstrates no gross abnormality. Upper abdomen: Visualized upper abdominal structures are unremarkable. Lymph nodes: No supraclavicular or axillary adenopathy. Enlarged subcarinal node measuring 13 mm short axis. Bones/joints: No acute osseous abnormalities are identified. Soft tissues: The soft tissues of the chest wall demonstrate no gross abnormality. IMPRESSION: 1. No evidence of pulmonary embolism or aortic dissection. 2. Rounded 6.5 cm zone of consolidative pulmonary infiltrates in the right lower lobe with additional patchy mild areas of suspected infiltrate in the right middle lobe and left perihilar region. EXAM: CT Angiography Abdomen With Contrast EXAM DATE/TIME: 08/04/2018 7:47 PM CLINICAL HISTORY: 52 years old, female; Other: Rll crackels; Abdominal pain; Localized; Prior surgery; Surgery date: 6+ months; Surgery type: Hysterectomy; Patient HX: Lower central abd pain TECHNIQUE: Imaging protocol: Axial computed tomographic angiography images of the abdomen with intravenous contrast material. Coronal and sagittal reformatted images were created and reviewed. 3D rendering: MIP reconstructed images were created and reviewed. Radiation optimization: All CT scans at this facility use at least one of these dose optimization techniques: automated exposure control; mA and/or kV adjustment per patient size (includes targeted exams where dose is matched to clinical indication); or iterative reconstruction. Contrast material: OMNIPAQUE 350; Contrast volume: 100 ml; Contrast route: IV; COMPARISON: CT CHEST FOR PULMONARY EMBOLUS 06/13/2017 11:40 PM FINDINGS: Lungs: Unremarkable. No consolidation. VASCULATURE: Aorta: No aortic aneurysm. No aortic dissection. Celiac trunk and mesenteric arteries: No occlusion or significant stenosis. Renal arteries: No occlusion or significant stenosis. ABDOMEN: Liver: Normal size and contour. No mass lesions. Gallbladder and bile ducts: Normal. No calcified stones. No ductal dilation. Pancreas: Normal. No inflammatory changes or ductal dilation. Spleen: Normal. No splenomegaly. Adrenals: Normal. No adrenal mass. Kidneys and ureters: Normal. No hydronephrosis or hydroureter. No urinary tract stones are identified. Stomach and bowel: The visualized distal esophagus and stomach are normal. The small bowel is normal with no evidence of obstruction. The colon is largely contracted without gross abnormality. Appendix: The appendix is not identified. No secondary signs of appendicitis. Bladder: The bladder is contracted with a Rao catheter well positioned in the bladder lumen. Small amount of air in the bladder. Reproductive: Prior hysterectomy. Intraperitoneal space: No free fluid or air. Bones/joints: No acute osseous abnormalities. Soft tissues: There is new asymmetric thickening of the left rectus abdominis muscle in the infraumbilical region on series 7 image 66 consistent with a rectus sheath hematoma. This appearance is new compared to 06/07/[address] This measures up to 2.1 cm AP. The hematoma itself is isodense and its margins are difficult to delineate. Its maximum size is felt to be approximately 2.2 x 2.7 x 5.8 cm (approximately 20 cc volume). No evidence of active contrast extravasation to suggest active bleeding. Mild extra muscular stranding is seen along the posterior margin of the rectus musculature which could represent a trace amount of extra muscular hemorrhage extension although no dominant extra muscular hematoma component is appreciated. No intraperitoneal hemorrhage. Lymph nodes: No adenopathy. IMPRESSION: 1. Left-sided rectus sheath hematoma in the infraumbilical region estimated at 20 cc volume with no evidence of active bleeding currently. There is a minimal component of extra muscular extension of hemorrhage posteriorly into the anterior extraperitoneal space, but no significant extra muscular hematoma. 2. THIS REPORT CONTAINS FINDINGS THAT MAY BE CRITICAL TO PATIENT CARE. The findings were verbally communicated via telephone conference with JORDYN YAO at 8:49 PM EDT on 08/04/2018. The findings were acknowledged and understood. Dictated and Authenticated by: New Lindsay MD. Ordering:KARLEY Ha MD
[2018-08-04] MEDS: Doxycycline Hyclate 100 MG CAP PO (21:15)
[2018-08-04] MEDS: methylPREDNISolone SUCC 125 MG VIAL IVP (21:15)
[2018-08-04] MEDS: Normal Saline 1,000 ML 150 ML IV (21:16)
--- NOTE | 2018-08-04 21:25 | NUR.NOTE ---
Nursing Note: patient remains confused but cooperative, restless at time. family with patient.
[2018-08-04 21:37] LABS: BE (Venous) -0.8 mmol/L (-3-3); HCO3 (Venous) 25 mmol/L (22-28); O2 Sat (Venous) 43 % (70-80); TCO2 (Venous) 23 mmol/L (22-29); pCO2 (Venous) 46 mm/Hg (34-47); pH (Venous) 7.34 (7.32-7.43); pO2 (Venous) 24 mm/Hg (28-44)
--- NOTE | 2018-08-04 21:40 | NUR.NOTE ---
Nursing Note: patient found standing at the foot of the bed, ambulated with assist, restless in bed.
[2018-08-04 21:54] LABS: ETHANOL BLOOD < 3.0 mg/dL (<3)
[2018-08-04 21:55] VITALS: BP 89/53; PULSE 103; RESP 38; TEMP 36.7; O2SAT 95
[2018-08-04 22:06] LABS: Procalcitonin 0.8 ng/mL
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
[2018-08-05] VITALS (9 sets, daily range): BP systolic 86–103; BP diastolic 64–77; PULSE 79–94; RESP 2–25; TEMP 36.4–37; O2SAT 92–97
[2018-08-05] MEDS: Albuterol/Ipratropium 3 ML UPD VIAL UPD ×3 (00:20→23:45)
[2018-08-05] MEDS: Enoxaparin 40 MG/0.4 ML SYR SC ×2 (00:20→23:45)
[2018-08-05] MEDS: cefTRIAXone 1 GM/50 ML BAG IVPB (00:20)
[2018-08-05] MEDS: Normal Saline 1,000 ML 150 ML IV ×3 (03:50→18:23)
[2018-08-05] MEDS: methylPREDNISolone SUCC 125 MG VIAL 80 MG IVP (05:46)
[2018-08-05 06:52] LABS: Anion Gap 11.8 mmol/L (3-11); BUN 13 mg/dL (7-18); CO2 22.2 mmol/L (21.0-32.0); Calcium 7.8 mg/dL (8.5-10.1); Chloride 104 mmol/L (98-107); Glucose 174 mg/dL (70-100); Potassium 3.4 mmol/L (3.5-5.1); Sodium 138 mmol/L (136-145)
[2018-08-05 06:53] LABS: HCT 35.8 % (36.0-46.0); HGB 11.7 g/dL (12.0-15.5); Mean Corp. HGB Concentration 32.7 g/dL (32.0-36.0); Mean Corpuscular Hemoglobin 30.6 pg (27.0-33.0); Mean Corpuscular Volume 93.7 fL (80-95); Mean Platelet Volume 10.9 fL (8.0-11.0); Platelet Count 110 x1000/uL (130-400); RBC 3.82 m/cumm (4.00-5.20); RBC Distribution Width 15.9 % (11.7-14.6); White Blood Cell Count 2.45 k/cumm (4.4-10.8)
[2018-08-05 07:36] LABS: Absolute Neutrophil Count 1.52 k/cumm (1.2-6.7)
[2018-08-05 07:37] LABS: Absolute Lymphocyte Count 0.88 k/cumm (1.2-3.4); Absolute Monocyte Count 0.05 k/cumm (0.11-0.7); Diff Comment Manual Differential
[2018-08-05 07:38] LABS: Anisocytosis 1+; Polychromasia Present
[2018-08-05 07:41] LABS: Procalcitonin 0.5 ng/mL
[2018-08-05 08:07] LABS: Magnesium 2.2 mg/dL (1.8-2.4)
[2018-08-05] MEDS: Multivitamin TAB 1 TAB PO (08:52)
[2018-08-05] MEDS: Potassium Chloride 20 MEQ TABCR 40 MEQ PO ×2 (08:52→14:05)
[2018-08-05] MEDS: DOXYCYCLINE 100 MG in Normal Saline 100 ML IVPB ×2 (08:52→20:11)
[2018-08-05] MEDS: Folic Acid 1 MG TAB PO (08:53)
[2018-08-05] MEDS: Thiamine 100 MG TAB PO (08:53)
--- NOTE | 2018-08-05 09:18 | W.PM.PROGNOT ---
Date of Service Date of service: 08/05/18 Time of Service: 09:20 Assessment and Plan (1) Community acquired pneumonia of both lungs: Start date: 08/05/18 Start time: 09:34 Current visit: Yes Status: Acute Lung sounds improving. Afebrile. Day 2 of rocephine and doxycycline, continue nebs, steroids tapered to 60 q 8, continue accapella, blood cultures and sputum culture pending. Add mucolytic. (2) Metabolic encephalopathy: Start date: 08/05/18 Start time: 09:37 Current visit: Yes Status: Acute Resolved this am. AAO x 3. Will restart her psych medication and monitor closely. (3) Dehydration: Start date: 08/05/18 Start time: 09:38 Current visit: Yes Status: Acute Resolved by am labs. Appears well hydrated and labs this am BUN 13, creatinine 0.70 continue to monitor hydration status. Check bmp tomorrow (4) Bipolar disorder: Start date: 08/05/18 Start time: 09:41 Current visit: No Status: Acute Psychiatric medications restarted. No longer confused or agitated. Monitor closely if patient become confused, may need to stop all medication and slowly reintroduce, or consider switching. Qualifiers: Active/Remission status: currently active Current bipolar episode type: mixed Current episode severity: unspecified Qualified Code(s): F31.60 - Bipolar disorder, current episode mixed, unspecified (5) Depression: Start date: 08/05/18 Start time: 09:43 Current visit: No Status: Chronic History of mood disorder with anxiety and depression, see above. (6) Anxiety: Start date: 08/05/18 Start time: 09:43 Current visit: No Status: Chronic See above. (7) Alcoholism: Start date: 08/05/18 Start time: 09:43 Current visit: No Status: Acute History of alcohol use with abuse. Unsure if last drink was sunday. Started on CIWA, given thamine, folic acid and multivitamin. Continue to monitor for alcohol withdrawal. (8) Excoriation: Start date: 08/05/18 Start time: 09:44 Current visit: Yes Status: Acute Severe excoriation with erythema and scabbing to inner thighs bilaterally. Started on clotrimazole, zinc and a/d ointment combination. Wound to see tomorrow. (9) Hypokalemia: Start date: 08/05/18 Start time: 09:45 Current visit: Yes Status: Acute Repleted with 40 meq potassium this am and another dose this afternoon. Monitor by labs in the morning. (10) Self-care deficit for hygiene: Start date: 08/05/18 Start time: 09:46 Current visit: Yes Status: Acute Disheveled, unclean, and malodorous. Does not care for self well. CM aware. Subjective Patient reports: no new complaints Interval history since last seen: Mrs. Kirby is a 52 y.o F with mood disorder, anxiety and depression. Admitted last night for CAP. Started on doxycycline and rocephin, today she appears well. In the ED yesterday she was confused and anxious. Today she is AAOx3 calm and cooperative. There is a flatness to her when talking, with yes or no answers only. Breathing sounds improved with only fine crackles to the bottom of the bases, no wheezing, rales, rhonchi. Steroids weaned to 60 mg, continue nebs, antibiotics. There is severe excoriation to inner thighs bilatteraly, wound to see her tomorrow, start on a combination clotrimazole, a/d ointment and zinc. Unclear if she has had any alcohol or illicit drugs recently, placed on CIWA. Also mention of atrophy of the brain by CT likely from alcohol use, started on thiamine, folic acid and multivitamin. Potassium repleted. Continue to monitor patient. She denies chest pain, nausea, vomiting, diarrhea. Exam Const General: cooperative, comfortable and disheveled Nutritional Appearance: overweight Orientation: alert, awake and oriented x3 HENMT Head: normal to inspection Eyes General: appearance normal, both eyes and all related structures Pupils: PERRL Neck Lymphatic: no lymphadenopathy noted and no lymphedema noted Chest Chest: normal inspection of the chest Resp Effort & Inspection: able to speak in complete sentences, abnormal respiratory pattern (take shallow breaths, encourage deep breathing) and cough Auscultation: crackles (fine in lower bases bilaterally) Cardio Jugular venous pressure: no JVD Rate: regular rate Rhythm: regular rhythm Heart Sounds: S1 normal and S2 normal GI Inspection: obesity Palpation: soft and no hepatosplenomegaly Auscultation: normal bowel sounds Skin General skin exam: excoriation(s) (to bilateral inner thigh) Neuro General: alert, awake and oriented x3 Speech: speech normal Extrem Right upper extremity: full ROM Left upper extremity: full ROM Right lower extremity: full ROM Left lower extremity: full ROM Psych Appearance: disheveled Mood: anxious mood and paranoid Attitude: cooperative Thought Process: circumstantial Thought Content: abnormal Insight: limited Judgment: limited Objective Objective Clinical Data: Abnormal lab results 08/04/18 08/04/18 08/04/18 Range/Units 18:20 18:20 18:20 WBC 4.04 L (4.4-10.8) k/cumm RBC (4.00-5.20) m/cumm Hgb (12.0-15.5) g/dL Hct (36.0-46.0) % RDW 15.7 H (11.7-14.6) % Plt Count 112 L (130-400) x1000/uL Absolute Lymphocytes (1.2-3.4) k/cumm Absolute Monocytes 0.04 L (0.11-0.7) k/cumm D-Dimer (<500) ng/mlFEU VBG pO2 (28-44) mm/Hg VBG O2 Saturation (70-80) % Sodium 132 L (136-145) mmol/L Potassium (3.5-5.1) mmol/L Chloride 97 L (98-107) mmol/L Anion Gap (3-11) mmol/L BUN 23 H (7-18) mg/dL Glucose 115 H (70-100) mg/dL Calcium 8.4 L (8.5-10.1) mg/dL AST 116 H (15-37) U/L Albumin 2.8 L (3.4-5.0) g/dL Lipase 405 H (73-393) U/L Urine Protein (Negative) mg/dL Urine Ketones (Negative) mg/dL 08/04/18 08/04/18 08/04/18 Range/Units 18:20 18:50 21:17 WBC (4.4-10.8) k/cumm RBC (4.00-5.20) m/cumm Hgb (12.0-15.5) g/dL Hct (36.0-46.0) % RDW (11.7-14.6) % Plt Count (130-400) x1000/uL Absolute Lymphocytes (1.2-3.4) k/cumm Absolute Monocytes (0.11-0.7) k/cumm D-Dimer 6657 H (<500) ng/mlFEU VBG pO2 24 L (28-44) mm/Hg VBG O2 Saturation 43 L (70-80) % Sodium (136-145) mmol/L Potassium (3.5-5.1) mmol/L Chloride (98-107) mmol/L Anion Gap (3-11) mmol/L BUN (7-18) mg/dL Glucose (70-100) mg/dL Calcium (8.5-10.1) mg/dL AST (15-37) U/L Albumin (3.4-5.0) g/dL Lipase (73-393) U/L Urine Protein >=300 H (Negative) mg/dL Urine Ketones Trace H (Negative) mg/dL 08/05/18 08/05/18 Range/Units 06:30 06:30 WBC 2.45 L D (4.4-10.8) k/cumm RBC 3.82 L (4.00-5.20) m/cumm Hgb 11.7 L (12.0-15.5) g/dL Hct 35.8 L (36.0-46.0) % RDW 15.9 H (11.7-14.6) % Plt Count 110 L (130-400) x1000/uL Absolute Lymphocytes 0.88 L (1.2-3.4) k/cumm Absolute Monocytes 0.05 L (0.11-0.7) k/cumm D-Dimer (<500) ng/mlFEU VBG pO2 (28-44) mm/Hg VBG O2 Saturation (70-80) % Sodium (136-145) mmol/L Potassium 3.4 L (3.5-5.1) mmol/L Chloride (98-107) mmol/L Anion Gap 11.8 H (3-11) mmol/L BUN (7-18) mg/dL Glucose 174 H (70-100) mg/dL Calcium 7.8 L (8.5-10.1) mg/dL AST (15-37) U/L Albumin (3.4-5.0) g/dL Lipase (73-393) U/L Urine Protein (Negative) mg/dL Urine Ketones (Negative) mg/dL Vital Signs Temperature 36.6 C 08/05/18 07:15 Temperature Source Tympanic 08/05/18 07:15 Pulse 89 08/05/18 07:15 Pulse Rhythm Regular 08/05/18 03:07 Respiratory Rate 17 08/05/18 07:15 Respiratory Effort 08/05/18 03:07 Respiratory Depth Shallow 08/05/18 03:07 Respiratory Pattern Tachypnea 08/05/18 03:07 Blood Pressure 93/65 L 08/05/18 07:15 Blood Pressure Position Sitting 08/04/18 17:41 Pulse Oximetry 96 08/05/18 07:15 Oxygen Delivery Method Room Air 08/05/18 07:15 Oxygen Flow Rate 0 08/05/18 07:15 Pain Level 0 08/04/18 21:15 Intake & Output 08/04/18 08/04/18 08/05/18 11:59 23:59 11:59 Intake Total 1050 / 1050 985 / 985 Output Total 80 / 80 950 / 950 Balance 970 / 970 35 / 35 Weight 67 kg 66.9 kg Intake: IV 1050 / 1050 985 / 985 Output: Urine 80 / 80 950 / 950 Other: Urine Color Yellow Yellow Urine Appearance Clear Clear Laboratory Results WBC 2.45 k/cumm (4.4-10.8) L D 08/05/18 06:30 RBC 3.82 m/cumm (4.00-5.20) L 08/05/18 06:30 Hgb 11.7 g/dL (12.0-15.5) L 08/05/18 06:30 Hct 35.8 % (36.0-46.0) L 08/05/18 06:30 MCV 93.7 fL (80-95) 08/05/18 06:30 MCH 30.6 pg (27.0-33.0) 08/05/18 06:30 MCHC 32.7 g/dL (32.0-36.0) 08/05/18 06:30 RDW 15.9 % (11.7-14.6) H 08/05/18 06:30 Plt Count 110 x1000/uL (130-400) L 08/05/18 06:30 MPV 10.9 fL (8.0-11.0) 08/05/18 06:30 Immature Gran % 0.0 08/05/18 06:30 Neutrophils % 62.0 08/05/18 06:30 Band Neutrophils % 0.0 % 08/05/18 06:30 Lymphocytes % 33.0 08/05/18 06:30 Atypical Lymphs % 3.0 08/05/18 06:30 Monocytes % 2.0 08/05/18 06:30 Eosinophils % 0.0 08/05/18 06:30 Basophils % 0.0 08/05/18 06:30 Absolute Neutrophils 1.52 k/cumm (1.2-6.7) 08/05/18 06:30 Absolute Lymphocytes 0.88 k/cumm (1.2-3.4) L 08/05/18 06:30 Absolute Monocytes 0.05 k/cumm (0.11-0.7) L 08/05/18 06:30 Absolute Eosinophils 0.00 k/cumm (0.0-0.7) 08/05/18 06:30 Absolute Basophils 0.00 k/cumm (0.0-0.2) 08/05/18 06:30 Differential Comment Manual differential 08/05/18 06:30 RBC Morphology See below 08/05/18 06:30 Polychromasia Present 08/05/18 06:30 Anisocytosis 1+ 08/05/18 06:30 D-Dimer 6657 ng/mlFEU (<500) H 08/04/18 18:20 VBG pH 7.34 (7.32-7.43) 08/04/18 21:17 VBG pCO2 46 mm/Hg (34-47) 08/04/18 21:17 VBG pO2 24 mm/Hg (28-44) L 08/04/18 21:17 VBG HCO3 25 mmol/L (22-28) 08/04/18 21:17 VBG Total CO2 23 mmol/L (22-29) 08/04/18 21:17 VBG O2 Saturation 43 % (70-80) L 08/04/18 21:17 VBG Base Excess -0.8 mmol/L (-3-3) 08/04/18 21:17 Sodium 138 mmol/L (136-145) 08/05/18 06:30 Potassium 3.4 mmol/L (3.5-5.1) L 08/05/18 06:30 Chloride 104 mmol/L (98-107) 08/05/18 06:30 Carbon Dioxide 22.2 mmol/L (21.0-32.0) 08/05/18 06:30 Anion Gap 11.8 mmol/L (3-11) H 08/05/18 06:30 BUN 13 mg/dL (7-18) D 08/05/18 06:30 Creatinine 0.70 mg/dL (0.55-1.02) 08/05/18 06:30 Estimated GFR/1.73 m2 >= 60.00 (mL/min/1.73m2) 08/05/18 06:30 Glucose 174 mg/dL (70-100) H 08/05/18 06:30 Lactate 1.3 mmol/l (0.6-1.4) 08/04/18 18:20 Calcium 7.8 mg/dL (8.5-10.1) L 08/05/18 06:30 Magnesium 2.2 mg/dL (1.8-2.4) 08/05/18 06:30 Total Bilirubin 0.2 mg/dL (0.2-1.0) 08/04/18 18:20 AST 116 U/L (15-37) H 08/04/18 18:20 ALT 27 U/L (12-78) 08/04/18 18:20 Alkaline Phosphatase 104 U/L (46-116) 08/04/18 18:20 Ammonia 27 umol/L (11-32) 08/04/18 18:20 Troponin I < 0.02 ng/mL (0.00-0.06) 08/04/18 18:20 Total Protein 7.2 g/dL (6.4-8.2) 08/04/18 18:20 Albumin 2.8 g/dL (3.4-5.0) L 08/04/18 18:20 Lipase 405 U/L (73-393) H 08/04/18 18:20 Procalcitonin 0.5 ng/mL 08/05/18 06:30 TSH 3.32 uIU/mL (0.358-3.74) 08/04/18 18:20 Urine Color Yellow (Yellow) 08/04/18 18:50 Urine Clarity Clear 08/04/18 18:50 Urine pH 6.5 (5-8) 08/04/18 18:50 Ur Specific [place] 1.020 (1.005-1.025) 08/04/18 18:50 Urine Protein >=300 mg/dL (Negative) H 08/04/18 18:50 Urine Ketones Trace mg/dL (Negative) H 08/04/18 18:50 Urine Blood Negative (Negative) 08/04/18 18:50 Urine Nitrite Negative (Negative) 08/04/18 18:50 Urine Bilirubin Negative (Negative) 08/04/18 18:50 Urine Urobilinogen 0.2 EU/dL (Up TO 0.2) 08/04/18 18:50 Ur Leukocyte Esterase Negative (Negative) 08/04/18 18:50 Urine RBC Negative (0-2) 08/04/18 18:50 Urine WBC 0-2 HPF (0-5) 08/04/18 18:50 Ur Epithelial Cells Rare HPF (Negative) 08/04/18 18:50 Urine Crystals Negative HPF (Negative) 08/04/18 18:50 Urine Bacteria Few HPF (Negative) 08/04/18 18:50 Urine Casts Negative LPF (Negative) 08/04/18 18:50 Urine Mucus Moderate (Negative) 08/04/18 18:50 Urine Other Rare renal (Negative) 08/04/18 18:50 Ur Culture Indicated? No 08/04/18 18:50 Urine Glucose Negative mg/dL (Negative) 08/04/18 18:50 Urine Opiates Screen Negative (Negative) 08/04/18 18:50 Urine Methadone Screen Negative (Negative) 08/04/18 18:50 Ur Barbiturates Screen Negative (Negative) 08/04/18 18:50 Ur Tricyclics Screen Positive (Negative) 08/04/18 18:50 Ur Amphetamines Screen Negative (Negative) 08/04/18 18:50 U Benzodiazepines Scrn Negative (Negative) 08/04/18 18:50 Urine Cocaine Screen Negative (Negative) 08/04/18 18:50 Ur THC Screen Negative (Negative) 08/04/18 18:50 Ethyl Alcohol < 3.0 mg/dL (<3) 08/04/18 21:17
--- NOTE | 2018-08-05 09:38 | PDOC.CMIN ---
- If Service Date Differs Date of service: 08/05/18 Time of Service: 09:38 Care Management Initial Assess REASON FOR HOSPITALIZATION:: Community acquired pneumonia PAST MEDICAL HISTORY/PAST SURGICAL HISTORY:: Medical: Bipolar disorder, history of suicide attempt, depression, history of alcohol abuse, tobacco use, endometriosis, GERD. Surgical: appendectomy, hysterectomy, colonoscopy, tubal ligation, EGD PREVIOUS FUNCTIONAL STATUS/SOCIAL/FAMILY SUPPORTS:: Myrtle lives at home with her spouse Darrius who is parapeligic. 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 She reports she has four children. She states she use to work at a [employer] when she was younger she is now disabled. She depends on [facility] for transportation. She states she does not have support through friends of family. She does report she is independent with ADL's and caring for Darrius and her animals. CURRENT FUNCTIONAL STATUS:: Myrtle is lying in bed, her affect is flat and withdrawn, she answers questions guarded. She states she does meet with Piedad Harrison NP at [facility] who prescribes her medications. She states she sees her every 3 weeks. She denies any other mental health provider or resource. Myrtle states her medications where being blister packed in the past however that stopped and she started receiving them in bottles again. She states it was easier to manage, however, she does not want them blister packed again. Myrtle states she does occasionaly receive support through community connections Mario Mahsa is who she identifies as her support through [employer]. ADVANCE DIRECTIVES:: On file her daughter Jessie is her agent. CM requested advance directive be reviewed by provider with the patient. Has patient been provided with information about the portal?: Yes Did the patient sign up for the portal?: No CODE STATUS:: Full Code INSURANCE COVERAGE / FINANCIAL ISSUES:: JENNIE, BABAK CURRENT HOME/COMMUNITY SERVICES/EQUIPMENT:: None, primary caregiver for her disabled spouse. PRIMARY CARE PHYSICIAN:: POTENTIAL DISCHARGE NEEDS:: Myrtle will need follow up scheduled with primary care provider prior to discharge. She will need to continue to receive support through [facility]. PATIENT/FAMILY EDUCATION NEEDS:: Discharge education, limitations and follow up plan of care including ask me three and self managment. ANTICIPATED BARRIERS TO DISCHARGE:: Access to community supports, willingness to engage in services. TRANSPORTATION:: Via [facility] at time of discharge coordianted by CM. PLAN:: Myrtle is receiving IV antibioitcs for community acquired pneumonia. She is not requiring oxygen at this time. She continues to have an indwelling suazo. Per nursing most of her medications are on hold related to her AMS on admission. Anticipate provider will restart her medications this evening and she will continue to be monitored. CM anticipates a referral to home health services at time of discharge, for nursing and assitance with medication management. CM to continue to provide support and ongoing discharge planning and disposition.
--- NOTE | 2018-08-05 09:46 | INITIAL_ITS ---
- If Service Date Differs Date of service: 08/05/18 Time of Service: 09:38 Care Management Initial Assess REASON FOR HOSPITALIZATION:: Community acquired pneumonia PAST MEDICAL HISTORY/PAST SURGICAL HISTORY:: Medical: Bipolar disorder, history of suicide attempt, depression, history of alcohol abuse, tobacco use, endometriosis, GERD. Surgical: appendectomy, hysterectomy, colonoscopy, tubal ligation, EGD PREVIOUS FUNCTIONAL STATUS/SOCIAL/FAMILY SUPPORTS:: Myrtle lives at home with her spouse Darrius who is parapeligic. 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 She reports she has four children. She states she use to work at a [employer] when she was younger she is now disabled. She depends on [facility] for transportation. She states she does not have support through friends of family. She does report she is independent with ADL's and caring for Darrius and her animals. CURRENT FUNCTIONAL STATUS:: Myrtle is lying in bed, her affect is flat and withdrawn, she answers questions guarded. She states she does meet with Piedad Harrison NP at [facility] who prescribes her medications. She states she sees her every 3 weeks. She denies any other mental health provider or resource. Myrtle states her medications where being blister packed in the past however that stopped and she started receiving them in bottles again. She states it was easier to manage, however, she does not want them blister packed again. Myrtle states she does occasionaly receive support through community connections Mario Mahsa is who she identifies as her support through [employer]. ADVANCE DIRECTIVES:: On file her daughter Jessie is her agent. CM requested advance directive be reviewed by provider with the patient. Has patient been provided with information about the portal?: Yes Did the patient sign up for the portal?: No CODE STATUS:: Full Code INSURANCE COVERAGE / FINANCIAL ISSUES:: JENNIE, BABAK CURRENT HOME/COMMUNITY SERVICES/EQUIPMENT:: None, primary caregiver for her disabled spouse. PRIMARY CARE PHYSICIAN:: POTENTIAL DISCHARGE NEEDS:: Myrtle will need follow up scheduled with primary care provider prior to discharge. She will need to continue to receive support through [facility]. PATIENT/FAMILY EDUCATION NEEDS:: Discharge education, limitations and follow up plan of care including ask me three and self managment. ANTICIPATED BARRIERS TO DISCHARGE:: Access to community supports, willingness to engage in services. TRANSPORTATION:: Via [facility] at time of discharge coordianted by CM. PLAN:: Myrtle is receiving IV antibioitcs for community acquired pneumonia. She is not requiring oxygen at this time. She continues to have an indwelling suazo. Per nursing most of her medications are on hold related to her AMS on admission. Anticipate provider will restart her medications this evening and she will continue to be monitored. CM anticipates a referral to home health services at time of discharge, for nursing and assitance with medication management. CM to continue to provide support and ongoing discharge planning and disposition.
[2018-08-05 10:14] LABS: ALT 22 U/L (12-78); AST 81 U/L (15-37); Albumin 2.4 g/dL (3.4-5.0); Alkaline Phosphatase 89 U/L (46-116); Bilirubin, Direct 0.06 mg/dL (0.00-0.20); Bilirubin, Total 0.1 mg/dL (0.2-1.0); Lipase 391 U/L (73-393); Total Protein 5.7 g/dL (6.4-8.2)
[2018-08-05] MEDS: Normal Saline Flush 10 ML SYR IVP (14:04)
[2018-08-05] MEDS: methylPREDNISolone SUCC 125 MG VIAL 60 MG IVP ×2 (14:04→21:50)
[2018-08-05] MEDS: QUEtiapine 25 MG TAB PO ×2 (14:05→20:11)
[2018-08-05] MEDS: cefTRIAXone 2 GM/50 ML BAG IVPB (17:32)
[2018-08-05] MEDS: Pregabalin 100 MG CAP 300 MG PO (20:11)
[2018-08-05] MEDS: guaiFENesin 600 MG TABCR PO (20:11)
[2018-08-05] MEDS: Calcium 600mg/Vit D 200U TAB 2 TAB PO (20:11)
[2018-08-05] MEDS: Amitriptyline 50 MG TAB 100 MG PO (21:51)
[2018-08-05] MEDS: traZODone 100 MG TAB PO (21:51)
[2018-08-05] MEDS: QUEtiapine 100 MG TAB 400 MG PO (21:51)
[2018-08-06] VITALS (9 sets, daily range): BP systolic 100–116; BP diastolic 67–79; PULSE 81–101; RESP 2–22; TEMP 35.7–37; O2SAT 91–97
[2018-08-06] MEDS: Normal Saline 1,000 ML 150 ML IV ×2 (01:09→06:56)
[2018-08-06] MEDS: methylPREDNISolone SUCC 125 MG VIAL 60 MG IVP (06:11)
[2018-08-06] MEDS: Albuterol/Ipratropium 3 ML UPD VIAL UPD (06:18)
[2018-08-06] MEDS: DOXYCYCLINE 100 MG in Normal Saline 100 ML IVPB (07:44)
[2018-08-06 07:59] LABS: Procalcitonin 0.2 ng/mL
[2018-08-06] MEDS: guaiFENesin 600 MG TABCR PO ×2 (08:55→20:12)
[2018-08-06] MEDS: Calcium 600mg/Vit D 200U TAB 2 TAB PO ×2 (08:55→20:14)
[2018-08-06] MEDS: Folic Acid 1 MG TAB PO (08:56)
[2018-08-06] MEDS: Thiamine 100 MG TAB PO (08:56)
[2018-08-06] MEDS: Multivitamin TAB 1 TAB PO (08:56)
--- NOTE | 2018-08-06 09:46 | PGE_ITS ---
Date of Service Date of service: 08/06/18 Time of Service: 09:44 Assessment and Plan (1) Community acquired pneumonia of both lungs: Current visit: Yes Status: Acute Continues to have rales in the right base. Consider aspiration in the setting of sedation. Not requiring oxygen at this time. Cough improving, no shortness of breath, afebrile. Day #2 antibiotics. Change nebulizer treatments to as needed. Decrease steroids, transition to oral. Transition to oral Doxycyline, continue ceftriaxone. Repeat labs today. (2) Altered mental status: Current visit: No Status: Acute Mrs. Kirby was very drowsy this morning, however, she is becoming more alert as the day progresses. Hold trazedone and amitriptyline. Continue lyrica at decreased dose- hold for sedation. Continue seroquel- hold for sedation. May need decreased doses of psyche medications indefinitely. Altered mental status possibly contributing to aspiration, leading to pneumonia. Continue to monitor closely. (3) Bipolar disorder: Current visit: No Status: Acute As above. Qualifiers: Active/Remission status: currently active Current bipolar episode type: mixed Current episode severity: unspecified Qualified Code(s): F31.60 - Bipolar disorder, current episode mixed, unspecified (4) Alcoholism: Current visit: No Status: Acute Does not appear to be in withdrawal. Continue CIWA with PRN ativan. (5) Excoriation: Current visit: Yes Status: Acute Erythema and excoriation to bilateral inner thighs. Wound consult placed. Continue clotrimazole, zinc and a/d ointment combination. Continue to keep dry. Keep suazo in place overnight as tolerated. (6) Dehydration: Current visit: Yes Status: Acute appears resolved. Discontinue IV fluids. Encourage oral intake. Repeat labs today. (7) GERD (gastroesophageal reflux disease): Current visit: No Status: Chronic Tenderness noted on palpation of epigastric region. Add PPI. (8) DVT prophylaxis: Current visit: Yes Status: Acute Subcutaneous lovenox. (9) Discharge planning issues: Current visit: Yes Status: Acute She is a DNR/DNI. She lives at home with her who is disabled. This case was discussed with Dr. Valle who is in agreement. Subjective Interval history since last seen: Mrs. Kirby is drowsy today. She is sitting in the chair, resting her head on her hand. She needs to be awakened frequently to answer questions. She reports feeling tired, she denies shortness of breath or wheezing. She reports a nonproductive cough. She denies chest pain/pressure, she states she did not eat breakfast. She denies nausea, vomiting or diarrhea. She reports that she slept well last night. She offers no other concerns. Exam Narrative Exam Narrative: General: drowsy, awakens to verbal stimuli, answers questions appropriately. HEENT: normocephalic, atraumatic, EOMI, mucous membranes moist. Neck: supple, no JVD. Respiratory: respirations even and unlabored. Rales to right base, no wheezing. Cardiovascular: heart has regular rate and rhythm. No murmur appreciated. GI: abdomen soft, tenderness noted on palpation of epigastric region, normoactive bowel sounds throughout. Extremities: no clubbing, cyanosis or edema. Skin: erythema and excoriation with some skin flaking to bilateral inner thighs, small round bruises noted under left thigh. Objective Objective Clinical Data: Abnormal lab results 08/05/18 Range/Units 06:30 Potassium 3.4 L (3.5-5.1) mmol/L Anion Gap 11.8 H (3-11) mmol/L Glucose 174 H (70-100) mg/dL Calcium 7.8 L (8.5-10.1) mg/dL Total Bilirubin 0.1 L (0.2-1.0) mg/dL AST 81 H (15-37) U/L Total Protein 5.7 L (6.4-8.2) g/dL Albumin 2.4 L (3.4-5.0) g/dL Vital Signs Temperature 36.7 C 08/06/18 08:02 Temperature Source Temporal Artery Scan 08/06/18 08:02 Pulse 99 H 08/06/18 08:02 Pulse Rhythm Regular 08/06/18 05:00 Respiratory Rate 22 08/06/18 08:02 Respiratory Effort 08/06/18 08:07 Respiratory Depth Shallow 08/06/18 08:07 Respiratory Pattern Tachypnea 08/06/18 08:07 Blood Pressure 105/73 08/06/18 08:02 Blood Pressure Position Sitting 08/04/18 17:41 Pulse Oximetry 91 L 08/06/18 08:02 Oxygen Delivery Method Room Air 08/06/18 08:02 Oxygen Flow Rate 0 08/06/18 08:02 Pain Level 0 08/04/18 21:15 Intake & Output 08/05/18 08/05/18 08/06/18 11:59 23:59 11:59 Intake Total 2135 / 3595.0 1460.0 / 3595.0 2867.5 / 2867.5 Output Total 950 / 1350 400 / 1350 1300 / 1300 Balance 1185 / 2245.0 1060.0 / 2245.0 1567.5 / 1567.5 Weight 66.9 kg 68.3 kg Intake: IV 2135 / 3295.0 1160.0 / 3295.0 2867.5 / 2867.5 Oral 300 / 300 Output: Urine 950 / 1350 400 / 1350 1300 / 1300 Other: Urine Color Yellow Yellow Yellow Urine Appearance Clear Clear Clear Laboratory Results WBC 2.45 k/cumm (4.4-10.8) L D 08/05/18 06:30 RBC 3.82 m/cumm (4.00-5.20) L 08/05/18 06:30 Hgb 11.7 g/dL (12.0-15.5) L 08/05/18 06:30 Hct 35.8 % (36.0-46.0) L 08/05/18 06:30 MCV 93.7 fL (80-95) 08/05/18 06:30 MCH 30.6 pg (27.0-33.0) 08/05/18 06:30 MCHC 32.7 g/dL (32.0-36.0) 08/05/18 06:30 RDW 15.9 % (11.7-14.6) H 08/05/18 06:30 Plt Count 110 x1000/uL (130-400) L 08/05/18 06:30 MPV 10.9 fL (8.0-11.0) 08/05/18 06:30 Immature Gran % 0.0 08/05/18 06:30 Neutrophils % 62.0 08/05/18 06:30 Band Neutrophils % 0.0 % 08/05/18 06:30 Lymphocytes % 33.0 08/05/18 06:30 Atypical Lymphs % 3.0 08/05/18 06:30 Monocytes % 2.0 08/05/18 06:30 Eosinophils % 0.0 08/05/18 06:30 Basophils % 0.0 08/05/18 06:30 Absolute Neutrophils 1.52 k/cumm (1.2-6.7) 08/05/18 06:30 Absolute Lymphocytes 0.88 k/cumm (1.2-3.4) L 08/05/18 06:30 Absolute Monocytes 0.05 k/cumm (0.11-0.7) L 08/05/18 06:30 Absolute Eosinophils 0.00 k/cumm (0.0-0.7) 08/05/18 06:30 Absolute Basophils 0.00 k/cumm (0.0-0.2) 08/05/18 06:30 Differential Comment Manual differential 08/05/18 06:30 RBC Morphology See below 08/05/18 06:30 Polychromasia Present 08/05/18 06:30 Anisocytosis 1+ 08/05/18 06:30 D-Dimer 6657 ng/mlFEU (<500) H 08/04/18 18:20 VBG pH 7.34 (7.32-7.43) 08/04/18 21:17 VBG pCO2 46 mm/Hg (34-47) 08/04/18 21:17 VBG pO2 24 mm/Hg (28-44) L 08/04/18 21:17 VBG HCO3 25 mmol/L (22-28) 08/04/18 21:17 VBG Total CO2 23 mmol/L (22-29) 08/04/18 21:17 VBG O2 Saturation 43 % (70-80) L 08/04/18 21:17 VBG Base Excess -0.8 mmol/L (-3-3) 08/04/18 21:17 Sodium 138 mmol/L (136-145) 08/05/18 06:30 Potassium 3.4 mmol/L (3.5-5.1) L 08/05/18 06:30 Chloride 104 mmol/L (98-107) 08/05/18 06:30 Carbon Dioxide 22.2 mmol/L (21.0-32.0) 08/05/18 06:30 Anion Gap 11.8 mmol/L (3-11) H 08/05/18 06:30 BUN 13 mg/dL (7-18) D 08/05/18 06:30 Creatinine 0.70 mg/dL (0.55-1.02) 08/05/18 06:30 Estimated GFR/1.73 m2 >= 60.00 (mL/min/1.73m2) 08/05/18 06:30 Glucose 174 mg/dL (70-100) H 08/05/18 06:30 Lactate 1.3 mmol/l (0.6-1.4) 08/04/18 18:20 Calcium 7.8 mg/dL (8.5-10.1) L 08/05/18 06:30 Magnesium 2.0 mg/dL (1.8-2.4) 08/06/18 06:48 Total Bilirubin 0.1 mg/dL (0.2-1.0) L 08/05/18 06:30 Conjugated Bilirubin 0.06 mg/dL (0.00-0.20) 08/05/18 06:30 AST 81 U/L (15-37) H 08/05/18 06:30 ALT 22 U/L (12-78) 08/05/18 06:30 Alkaline Phosphatase 89 U/L (46-116) 08/05/18 06:30 Ammonia 27 umol/L (11-32) 08/04/18 18:20 Troponin I < 0.02 ng/mL (0.00-0.06) 08/04/18 18:20 Total Protein 5.7 g/dL (6.4-8.2) L 08/05/18 06:30 Albumin 2.4 g/dL (3.4-5.0) L 08/05/18 06:30 Lipase 391 U/L (73-393) 08/05/18 06:30 Procalcitonin 0.2 ng/mL 08/06/18 06:48 TSH 3.32 uIU/mL (0.358-3.74) 08/04/18 18:20 Urine Color Yellow (Yellow) 08/04/18 18:50 Urine Clarity Clear 08/04/18 18:50 Urine pH 6.5 (5-8) 08/04/18 18:50 Ur Specific Procious 1.020 (1.005-1.025) 08/04/18 18:50 Urine Protein >=300 mg/dL (Negative) H 08/04/18 18:50 Urine Ketones Trace mg/dL (Negative) H 08/04/18 18:50 Urine Blood Negative (Negative) 08/04/18 18:50 Urine Nitrite Negative (Negative) 08/04/18 18:50 Urine Bilirubin Negative (Negative) 08/04/18 18:50 Urine Urobilinogen 0.2 EU/dL (Up TO 0.2) 08/04/18 18:50 Ur Leukocyte Esterase Negative (Negative) 08/04/18 18:50 Urine RBC Negative (0-2) 08/04/18 18:50 Urine WBC 0-2 HPF (0-5) 08/04/18 18:50 Ur Epithelial Cells Rare HPF (Negative) 08/04/18 18:50 Urine Crystals Negative HPF (Negative) 08/04/18 18:50 Urine Bacteria Few HPF (Negative) 08/04/18 18:50 Urine Casts Negative LPF (Negative) 08/04/18 18:50 Urine Mucus Moderate (Negative) 08/04/18 18:50 Urine Other Rare renal (Negative) 08/04/18 18:50 Ur Culture Indicated? No 08/04/18 18:50 Urine Glucose Negative mg/dL (Negative) 08/04/18 18:50 Urine Opiates Screen Negative (Negative) 08/04/18 18:50 Urine Methadone Screen Negative (Negative) 08/04/18 18:50 Ur Barbiturates Screen Negative (Negative) 08/04/18 18:50 Ur Tricyclics Screen Positive (Negative) 08/04/18 18:50 Ur Amphetamines Screen Negative (Negative) 08/04/18 18:50 U Benzodiazepines Scrn Negative (Negative) 08/04/18 18:50 Urine Cocaine Screen Negative (Negative) 08/04/18 18:50 Ur THC Screen Negative (Negative) 08/04/18 18:50 Ethyl Alcohol < 3.0 mg/dL (<3) 08/04/18 21:17 Legionella Source (see note) 08/05/18 02:40 Legionella Reprt Status (see note) 08/05/18 02:40 Legionella Final Result (see note) 08/05/18 02:40
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
[2018-08-06] MEDS: Docusate Sodium 100 MG CAP PO (10:48)
[2018-08-06] MEDS: Normal Saline Flush 10 ML SYR IVP (10:49)
[2018-08-06] MEDS: Benzonatate 100 MG CAP PO (10:49)
[2018-08-06 11:13] LABS: HCT 33.3 % (36.0-46.0); HGB 10.6 g/dL (12.0-15.5); Mean Corp. HGB Concentration 31.8 g/dL (32.0-36.0); Mean Corpuscular Hemoglobin 30.4 pg (27.0-33.0); Mean Corpuscular Volume 95.4 fL (80-95); Mean Platelet Volume 11.3 fL (8.0-11.0); Platelet Count 140 x1000/uL (130-400); RBC 3.49 m/cumm (4.00-5.20); White Blood Cell Count 3.31 k/cumm (4.4-10.8)
[2018-08-06 11:14] LABS: Anion Gap 12.9 mmol/L (3-11); BUN 13 mg/dL (7-18); CO2 19.1 mmol/L (21.0-32.0); CREATININE 0.58 mg/dL (0.55-1.02); Calcium 8.1 mg/dL (8.5-10.1); Chloride 114 mmol/L (98-107); Glucose 179 mg/dL (70-100); Potassium 3.3 mmol/L (3.5-5.1); Sodium 146 mmol/L (136-145)
[2018-08-06 11:44] LABS: Absolute Lymphocyte Count 1.32 k/cumm (1.2-3.4); Absolute Monocyte Count 0.07 k/cumm (0.11-0.7); Absolute Neutrophil Count 1.92 k/cumm (1.2-6.7); Anisocytosis 1+; Diff Comment Manual Differential; Nucleated RBC 1 /100WBC
[2018-08-06 11:45] LABS: Poikilocytes 2+; Polychromasia Present
[2018-08-06] MEDS: Omeprazole 20 MG CAPCR PO (11:48)
[2018-08-06] MEDS: Polyethylene Glycol 3350 17 GM PACKET PO (12:37)
[2018-08-06] MEDS: Potassium Chloride 20 MEQ TABCR 40 MEQ PO ×2 (13:43→20:12)
--- NOTE | 2018-08-06 14:28 | NT_ITS ---
Date of service: 08/06/18 Time of Service: 14:28 PT Notes 08/06/18 Pt refuses PT x 2 this PM. Hermelinda Brambila, PHARMACY CUSTOMER CARE SPECIALIST
--- NOTE | 2018-08-06 14:47 | NUR.NOTE ---
Nursing Note: 1430: RN calls [facility] pharmacy in [place] to verify pt's medications. medications on pt's home list are accurate per pharmacy. pt picks up medications weekly for 7 day supply; last medications were picked up on July 30 per pharmacy. pt is consistent with picking up medications. medications are not bubble packed at this time per pharmacy. information given to TONGUE PRESSER, Raven Ayoub.
--- NOTE | 2018-08-06 16:12 | WOUNDCARE ---
Wound Care Report 08/06/1830 Pt is a __52_ year old female seen for pneumonia. Chart reviewed, including H&P, recent labs, and vital signs, and other providers? reports. Medical Hx and labs pertinent to wound healing: Current Active Problems Problem Status Onset DVT prophylaxis Acute Discharge planning issues Acute Community acquired pneumonia Acute Excoriation Acute Self-care deficit for hygiene Acute Hypokalemia Acute Abrasion hip/leg Acute Metabolic encephalopathy Acute Dehydration Acute Community acquired pneumonia of both lungs Acute Active Inpatient Medications Report Generic Name Dose Route Start Last Admin Trade Name Freq PRN Reason Stop Dose Admin Acetaminophen 650 mg 08/06/18 14:52 Tylenol PO Q4H PRN PRN Al Hydrox/Mg Hydrox/Simethicone 30 ml 08/04/18 23:15 Mylanta Liquid PO Q2H PRN PRN Albuterol Sulfate 2.5 mg 08/04/18 23:10 Proventil Updraft UPD Q2H PRN PRN Albuterol/Ipratropium 3 ml 08/06/18 10:11 Duoneb Updraft UPD Q6H PRN PRN Amitriptyline HCl 100 mg 08/05/18 22:00 08/05/18 21:51 Elavil PO 100 mg HS DION Administration Benzonatate 100 mg 08/04/18 23:20 08/06/18 10:49 Tessalon Perles PO 100 mg TID PRN Administration cough Calcium/Vitamin D 2 tab 08/05/18 20:00 08/06/18 08:55 Caltrate-600 W/ Vitamin D 200units PO 2 tab BID DION Administration Clonazepam 0.5 mg 08/05/18 11:02 Klonopin PO BID PRN PRN Clotrimazole 40 gm/ Zinc Oxide 0 gm 08/05/18 14:00 08/06/18 14:41 40 gm/ Vitamin A/Vitamin D 40 TP 1 applicatio gm TID DION Administration Dimethicone/Zinc Oxide 0 gm 08/04/18 23:15 Kaykay Protect Cream TP PRN PRN Docusate Sodium 100 mg 08/04/18 23:15 08/06/18 10:48 Colace PO 100 mg TID PRN PRN Administration Doxycycline Hyclate 100 mg 08/06/18 20:00 Vibramycin PO Q12H DION Enoxaparin Sodium 40 mg 08/05/18 00:00 08/05/18 23:45 Lovenox SC 40 mg Q24H DION Administration Folic Acid 1 mg 08/05/18 08:30 08/06/18 08:56 Folate PO 1 mg DAILY DION Administration Guaifenesin 600 mg 08/05/18 20:00 08/06/18 08:55 Mucinex PO 600 mg BID DION Administration Ceftriaxone Sodium/Dextrose 2 gm in 50 mls @ 100 mls/hr 08/05/18 18:00 08/05/18 18:05 Rocephin IVPB Infused Q24H DION Infusion IV Miscellaneous Supplies 1 each 08/04/18 21:15 IV DIRECTED DION Iohexol 100 ml 08/04/18 20:15 08/04/18 20:12 Omnipaque 350 IJ 09/03/18 23:59 100 ml DIRECTED DION Administration Lorazepam 0 mg 08/05/18 07:47 Ativan Injection IVP DIRECTED PRN Lorazepam 0 mg 08/05/18 07:47 Ativan PO/SL DIRECTED PRN Magnesium Hydroxide 30 ml 08/04/18 23:15 Milk Of Magnesia PO DAILY PRN PRN Multivitamins 1 tab 08/05/18 08:30 08/06/18 08:56 PO 08/11/18 08:31 1 tab DAILY DION Administration Nicotine 21 mg 08/04/18 23:15 Nicoderm Cq TD DAILY PRN PRN Omeprazole 20 mg 08/06/18 07:30 08/06/18 11:48 Prilosec PO 20 mg DAILY@0730 DION Administration Polyethylene Glycol 17 gm 08/04/18 23:15 08/06/18 12:37 Miralax PO 17 gm DAILY PRN PRN Administration Constipation Potassium Chloride 40 meq 08/06/18 20:00 K-Dur PO BID DION Prednisone 40 mg 08/06/18 20:00 Deltasone PO BID DION Pregabalin 150 mg 08/06/18 20:00 Lyrica PO BID DION Quetiapine Fumarate 400 mg 08/05/18 22:00 08/05/18 21:51 Seroquel PO 400 mg HS DION Administration Quetiapine Fumarate 25 mg 08/05/18 14:00 08/06/18 14:44 Seroquel PO Not Given TID DION Sodium Chloride 0 ml 08/04/18 18:04 08/06/18 10:49 Saline Flush 10 Ml Syringe IVP 20 ml PRN PRN Administration Thiamine HCl 100 mg 08/05/18 08:30 08/06/18 08:56 PO 100 mg DAILY DION Administration Trazodone HCl 100 mg 08/05/18 22:00 08/05/18 21:51 Desyrel PO 100 mg HS DION Administration Discontinued Medications Generic Name Dose Route Start Last Admin Trade Name Freq PRN Reason Stop Dose Admin Albuterol Sulfate 2.5 mg 08/04/18 18:08 08/04/18 19:20 Proventil Updraft UPD 08/04/18 18:09 2.5 mg NOW ONE Administration Albuterol/Ipratropium 3 ml 08/05/18 00:00 08/06/18 06:18 Duoneb Updraft UPD 3 ml Q6H DION Administration Ceftriaxone Sodium 1 gm 08/04/18 18:35 08/05/18 16:54 Rocephin IM 08/04/18 18:36 Not Given NOW ONE Doxycycline Hyclate 100 mg 08/04/18 20:57 08/04/18 21:15 Vibramycin PO 08/04/18 20:58 100 mg NOW ONE Administration Sodium Chloride 1,000 mls @ 1,000 mls/hr 08/04/18 18:04 08/04/18 21:08 Saline 1000ml Bag IV 08/04/18 19:03 Infused BOLUS ONE Infusion Sodium Chloride 1,000 mls @ 1,000 mls/hr 08/04/18 18:35 08/05/18 15:50 Saline 1000ml Bag IV 08/04/18 19:34 Not Given BOLUS ONE Ceftriaxone Sodium/Dextrose 1 gm in 50 mls @ 100 mls/hr 08/04/18 18:49 08/04/18 20:35 Rocephin IVPB 08/04/18 19:18 Infused NOW ONE Infusion Sodium Chloride 1,000 mls @ 150 mls/hr 08/04/18 21:15 08/06/18 10:05 Saline 1000ml Bag IV 0 mls/hr INFUSION DION Infusion Ceftriaxone Sodium/Dextrose 1 gm in 50 mls @ 100 mls/hr 08/04/18 23:10 08/05/18 00:50 Rocephin IVPB 08/04/18 23:39 Infused NOW ONE Infusion Doxycycline Hyclate 100 mg/ 100 mls @ 100 mls/hr 08/05/18 08:00 08/06/18 10:14 Sodium Chloride IVPB Infused Q12H DION Infusion IV Miscellaneous Supplies 1 each 08/04/18 18:15 IV DIRECTED DION Lorazepam 1 mg 08/04/18 18:56 08/04/18 18:57 Ativan Injection IVP 08/04/18 18:57 1 mg NOW ONE Administration Lorazepam Confirm 08/04/18 18:57 Ativan Injection Administered Dose 2 mg .ROUTE .DM PRN Methylprednisolone Sodium Succinate 125 mg 08/04/18 21:07 08/04/18 21:15 Solu-Medrol IVP 08/04/18 21:08 125 mg NOW ONE Administration Methylprednisolone Sodium Succinate 80 mg 08/05/18 06:00 08/05/18 05:46 Solu-Medrol IVP 80 mg Q8H DION Administration Methylprednisolone Sodium Succinate 60 mg 08/05/18 14:00 08/06/18 06:11 Solu-Medrol IVP 60 mg Q8H DION Administration Potassium Chloride 40 meq 08/05/18 07:54 08/05/18 08:52 K-Dur PO 08/05/18 07:55 40 meq NOW ONE Administration Potassium Chloride 40 meq 08/05/18 14:00 08/05/18 14:05 K-Dur PO 08/05/18 14:01 40 meq NOW ONE Administration Potassium Chloride 40 meq 08/06/18 13:23 08/06/18 13:43 K-Dur PO 08/06/18 13:24 40 meq NOW ONE Administration Pregabalin 300 mg 08/05/18 20:00 08/06/18 11:42 Lyrica PO Not Given BID DION Wound Hx if applicable Pt states that she ?puts bacitracin on it? at home. Declines to answer when asked how long it had been there or if there was an injury involved. Wound Assessment Findings Wound is comprised of multiple open areas, some pink wound bed, others covered in a brownish scab. Areas are tender to touch, pt refuses deep cleansing to remove tissue d/t tenderness. All wounds that are not covered in thin scab are partial thickness wounds. Surrounding skin is pinkish with undefined wound edges. No induration noted. No increased warmth. No drainage noted. Patients Mobility status Pt is mobile at home, here is unsteady on her feet, ambulates with a standby guard. Continence Management plan pt has suazo catheter in place Current Topical Treatment plan- Cleanse, apply clotrimazole 1%, vitamin a and d and zinc cream (mixture of the three) TID and PRN. Interventions for pressure redistribution- Pt repositioned q 2 and PRN Recommendations: Cleanse, apply clotrimazole 1%, vitamin A and D and Zinc (mixture of the three) TID and PRN. Thank you for the consult.
--- NOTE | 2018-08-06 16:49 | PHARADMIT ---
Admission Pharmacy Clinical Review Code Status DNR/DNI Current Weight 68.3 kg Renally Cleared and Narrow Therapeutic Index Meds CrCl ~66.53ml, meds ok QTc Value / Action Taken 430 BP Control, Fever 100/69, afebrile Electrolytes reviewed Na 146, K 3.3 DVT Prophylaxis LMWH 40mg Opiate Usage / Scheduled Bowel Regimen Ordered None Plt/SCr for Heparin / Enoxaparin Plt 140; Scr 0.58 INR for Warfarin n/a H/H stable, WBC/Bands H/H 10.6/33.3; WBC 3.31 Antibiotic appropriateness ceftriaxone and PO doxy Cultures and Sensitivities Sputum pending Surgical ABX d/c within 24 hr n/a DM control / Insulin Dosing n/a Heart Failure (Check EF%) (BRENDAN's, B-Block, Diuretics) None IV to PO Switch Doxy switched to PO today Home Meds Reviewed Yes -- multiple [employer] depressants Home Meds Not Ordered magnesium Comments Patient has been abusing psych medications - per morning report took weeks worth of meds all at once and is refusing recommendation to begin using blister packs again; aspiration pneumonia is suspected due to this sedation from psych meds; holding/decreasing psych meds today as patient was very drowsy in the AM; continue ABX
[2018-08-06] MEDS: Acetaminophen 325 MG TAB 650 MG PO (16:54)
--- NOTE | 2018-08-06 17:39 | PDOC.CMPRO ---
- If Service Date Differs Date of service: 08/06/18 Time of Service: 17:39 Care Management Progress Note S/O: CM met with Myrtle at the bedside she continues to be acute status. She did have a PT consult recommendations for home PT. She continues to receive IV antibiotics treatment for possible aspiration pneumonia. Plan per provider will continue to hold trazedone and amitriptyline. Continue lyrica at decreased dose- seroquel was continued- Altered mental status possibly contributing to aspiration, leading to pneumonia, she will continued to be monitored. Myrtle is considering home health services for nursing and PT. She would benefit from medication management support. Per report she is receiving her medication once a week through [facility] in [place], [place]. CM did review with provider Myrtle's recent labs including elevated d-dimmer on admission. She did have a CT scan neg for PE. A: Myrtle remains inpatient treatment for pneumonia P: Myrtle will be discharged home when medically ready per provider. She continues on IV antibiotics. She will discharged home anticipate new home health services for nursing and PT. She will transport home via [facility] at time of discharge.
[2018-08-06] MEDS: cefTRIAXone 2 GM/50 ML BAG IVPB (18:40)
[2018-08-06] MEDS: Doxycycline Hyclate 100 MG CAP PO (20:11)
[2018-08-06] MEDS: QUEtiapine 25 MG TAB PO (20:12)
[2018-08-06] MEDS: predniSONE 20 MG TAB 40 MG PO (20:12)
[2018-08-06] MEDS: Pregabalin 50 MG CAP 150 MG PO (20:13)
[2018-08-06] MEDS: QUEtiapine 100 MG TAB 400 MG PO (21:55)
[2018-08-07] MEDS: Enoxaparin 40 MG/0.4 ML SYR SC (00:02)
[2018-08-07 05:10] VITALS: BP 108/70; PULSE 73; RESP 16; TEMP 36.7; O2SAT 95
[2018-08-07 07:38] VITALS: BP 115/80; PULSE 76; RESP 18; TEMP 35.9; O2SAT 93
[2018-08-07] MEDS: Calcium 600mg/Vit D 200U TAB 2 TAB PO (07:57)
[2018-08-07] MEDS: Potassium Chloride 20 MEQ TABCR 40 MEQ PO (07:57)
[2018-08-07] MEDS: Doxycycline Hyclate 100 MG CAP PO (07:58)
[2018-08-07] MEDS: predniSONE 20 MG TAB 40 MG PO (07:58)
[2018-08-07] MEDS: guaiFENesin 600 MG TABCR PO (07:59)
[2018-08-07] MEDS: Thiamine 100 MG TAB PO (07:59)
[2018-08-07] MEDS: Multivitamin TAB 1 TAB PO (07:59)
[2018-08-07] MEDS: Omeprazole 20 MG CAPCR PO (07:59)
[2018-08-07] MEDS: Folic Acid 1 MG TAB PO (07:59)
[2018-08-07 08:13] LABS: Abs Immature Grans 0.09 k/cumm (0.0-0.09); Absolute Basophil Count 0.01 k/cumm (0.0-0.2); Basophils % 0.2; HCT 33.3 % (36.0-46.0); HGB 10.8 g/dL (12.0-15.5); Mean Corp. HGB Concentration 32.4 g/dL (32.0-36.0); Mean Corpuscular Hemoglobin 30.8 pg (27.0-33.0); Mean Corpuscular Volume 94.9 fL (80-95); Mean Platelet Volume 10.5 fL (8.0-11.0); Platelet Count 175 x1000/uL (130-400); RBC 3.51 m/cumm (4.00-5.20); RBC Distribution Width 16.2 % (11.7-14.6); White Blood Cell Count 4.66 k/cumm (4.4-10.8)
[2018-08-07 08:26] LABS: Magnesium 2.1 mg/dL (1.8-2.4)
[2018-08-07 08:35] LABS: Anion Gap 9.2 mmol/L (3-11); BUN 13 mg/dL (7-18); CO2 21.8 mmol/L (21.0-32.0); CREATININE 0.59 mg/dL (0.55-1.02); Calcium 9.1 mg/dL (8.5-10.1); Chloride 113 mmol/L (98-107); Glucose 117 mg/dL (70-100); Potassium 4.4 mmol/L (3.5-5.1); Sodium 144 mmol/L (136-145)
[2018-08-07 09:04] LABS: Absolute Neutrophil Count 3.12 k/cumm (1.2-6.7)
[2018-08-07 09:05] LABS: Absolute Lymphocyte Count 1.03 k/cumm (1.2-3.4); Absolute Monocyte Count 0.37 k/cumm (0.11-0.7)
[2018-08-07 09:06] LABS: Anisocytosis 2+; Diff Comment Manual Differential; Polychromasia Present
[2018-08-07 09:07] LABS: Poikilocytes 2+
[2018-08-07] MEDS: Pregabalin 50 MG CAP 150 MG PO (09:17)
[2018-08-07] MEDS: QUEtiapine 25 MG TAB PO ×2 (09:18→13:32)
[2018-08-07 09:27] LABS: Procalcitonin < 0.1 ng/mL
[2018-08-07 10:07] VITALS: BP 106/68; PULSE 79; RESP 28; TEMP 35.8; O2SAT 95
--- NOTE | 2018-08-07 10:28 | NUR.NOTE ---
Nursing Note: On 08/06/18 around 1300 RT Latanya was notified about an acapella order for this patient. RT stated the treatment was not appropriate for this patient. REHAN Carbajal was notified and stated she would d/c the order.
--- NOTE | 2018-08-07 10:43 | PT.INTREAT ---
Date of service: 08/07/18 Time of Service: 10:43 PT Notes 08/07/18 SUBJECTIVE: Myrtle stating she is doing well today. No pain complaints. She is unsure if she has a walker at home. She is agreeable to having PT come into her home. OBJECTIVE: Supine in bed. Agreeable to PT treatment. TRANSFERS Supine to sit: S Sit to supine: S Sit to stand: S Stand to sit: S GAIT Device: FWW Weight bearing: Full Assist: SBA Distance: 120' Deviation: Minor path deviations. No LOB with use of FWW THEREX: Pt performs small ESTEBAN standing without UE support, SBA. Unable to maintain tandem stance without UE and Min A. She performs 10 mini squats at walker. See flow sheet for specifics. ASSESSMENT: Pt would benefit from continued balance re-training with PT. She was encouraged to utilize FWW at home to decrease fall risk. PLAN: Continue per POC focusing on gait training with FWW and balance re-training. Treatment time: 15 Hermelinda Brambila PTA
--- NOTE | 2018-08-07 10:48 | PTTR_ITS ---
Date of service: 08/07/18 Time of Service: 10:43 PT Notes 08/07/18 SUBJECTIVE: Myrtle stating she is doing well today. No pain complaints. She is unsure if she has a walker at home. She is agreeable to having PT come into her home. OBJECTIVE: Supine in bed. Agreeable to PT treatment. TRANSFERS Supine to sit: S Sit to supine: S Sit to stand: S Stand to sit: S GAIT Device: FWW Weight bearing: Full Assist: SBA Distance: 120' Deviation: Minor path deviations. No LOB with use of FWW THEREX: Pt performs small ESTEBAN standing without UE support, SBA. Unable to maintain tandem stance without UE and Min A. She performs 10 mini squats at walker. See flow sheet for specifics. ASSESSMENT: Pt would benefit from continued balance re-training with PT. She was encouraged to utilize FWW at home to decrease fall risk. PLAN: Continue per POC focusing on gait training with FWW and balance re- training. Treatment time: 15 Hermelinda Brambila PTA
[2018-08-07 11:34] VITALS: BP 114/79; PULSE 85; RESP 20; TEMP 36.5; O2SAT 95
[2018-08-07] MEDS: Benzonatate 100 MG CAP PO (13:32)
[2018-08-07] MEDS: clonazePAM 0.5 MG TAB PO (13:33)
[2018-08-07] MEDS: Normal Saline Flush 10 ML SYR IVP (13:37)
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
[2018-08-07 13:53] VITALS: BP 112/66; PULSE 95; RESP 20; TEMP 36.3; O2SAT 97
--- NOTE | 2018-08-07 14:44 | PDOC.HHF2F ---
1. Encounter Date and Reason I certify that RUCHI MARSH was seen by Raven Ayoub on 08/07/18 and that I had a [id number] encounter with this patient that meets the physician face to face encounter requirements. 2. Clinical Findings Supporting Skilled Need and Homebound Status I certify that home health services are medically necessary, include either intermittent correction and/or physical/speech therapy, and that this patient is homebound in that absences from the home require considerable and taxing effort and are infrequent or of short duration, or are attributable to the need to receive medical care. [X] (a) Attached documentation from encounter provides clinical findings supporting skilled need and homebound status (including what assistance patient requires to leave the home). The encounter with the patient was in whole, or in part, for the following medical condition, which is the primary reason for home health care: PNEUMONIA, altered mental status, unsteady gait. Assisted: Needed to monitor medical conditions, assist with medication management. Physical Therapy: Needed to continue to improve strength and endurance after hospitalization. PT recommends continued balance training and use of FWW. Speech Therapy: Homebound: Unable to leave home without assistance. 3. Certification and Authentication I certify that I composed the above information based on my clinical judgement relating to this patient's medical condition and, if applicable, clinical findings communicated to me by the NPP or inpatient physician who performed the Home Health Referral. All further orders will be obtained through Dr. Sanchez (Community Based Physician - PCP)
--- NOTE | 2018-08-07 14:47 | HHF2F_ITS ---
1. Encounter Date and Reason I certify that RUCHI MARSH was seen by Raven Ayoub on 08/07/18 and that I had a [id number] encounter with this patient that meets the physician face to face encounter requirements. 2. Clinical Findings Supporting Skilled Need and Homebound Status I certify that home health services are medically necessary, include either intermittent chcf and/or physical/speech therapy, and that this patient is homebound in that absences from the home require considerable and taxing effort and are infrequent or of short duration, or are attributable to the need to receive medical care. [X] (a) Attached documentation from encounter provides clinical findings supporting skilled need and homebound status (including what assistance patient requires to leave the home). The encounter with the patient was in whole, or in part, for the following medical condition, which is the primary reason for home health care: PNEUMONIA, altered mental status, unsteady gait. Fci: Needed to monitor medical conditions, assist with medication management. Physical Therapy: Needed to continue to improve strength and endurance after hospitalization. PT recommends continued balance training and use of FWW. Speech Therapy: Homebound: Unable to leave home without assistance. 3. Certification and Authentication I certify that I composed the above information based on my clinical judgement relating to this patient's medical condition and, if applicable, clinical findings communicated to me by the NPP or inpatient physician who performed the Home Health Referral. All further orders will be obtained through Dr. Sanchez (Community Based Physician - PCP)
[2018-08-07 15:32] VITALS: BP 129/86; PULSE 80; RESP 19; TEMP 36.4; O2SAT 96
--- NOTE | 2018-08-07 16:27 | PDOC.CMDIS ---
- If Service Date Differs Date of service: 08/07/18 Time of Service: 16:27 LACE Index Scoring Tool - Questions: Length of Stay (in days): 3 Acuity (Admit via E.D.?): Yes E.D. Visits: 10 - Answers: Total Score: 10 Risk of Readmission: High Risk Care Management Discharge Reason for Hospitalization: Community acquired pneumonia Discharge Plan: Myrtle is being discharged home today with new home health services including nursing, and PT. She was provided with a FWW through DME of choice [employer] [facility]. Myrtle will be transported via [facility] coordinated by JOHN prior to discharge. She will continue follow up with her psychiatric provider through [facility]. CM contacted [facility] and her total copay is 2.70 which they will charge on her behalf so that she can obtain her medications. CM contacted home health and left a voicemail notice of discharge and referral. Patient/Family Education Needs: Discharge educations, limitations and follow up plan of care including ask me three and self management. Services Needed at Discharge: DME Agency, Home Health Care Services, Physical Therapy, Transportation - MH Services (Omit if N/A) Current MH Services: [facility]
--- NOTE | 2018-08-07 16:34 | CMDISCH_ITS ---
- If Service Date Differs Date of service: 08/07/18 Time of Service: 16:27 LACE Index Scoring Tool - Questions: Length of Stay (in days): 3 Acuity (Admit via E.D.?): Yes E.D. Visits: 10 - Answers: Total Score: 10 Risk of Readmission: High Risk Care Management Discharge Reason for Hospitalization: Community acquired pneumonia Discharge Plan: Myrtle is being discharged home today with new home health services including nursing, and PT. She was provided with a FWW through [facility] of [facility] [employer]. Myrtle will be transported via [facility] coordinated by JOHN prior to discharge. She will continue follow up with her psychiatric provider through [facility]. CM contacted [facility] and her total copay is 2.70 which they will charge on her behalf so that she can obtain her medications. CM contacted home health and left a voicemail notice of discharge and referral. Patient/Family Education Needs: Discharge educations, limitations and follow up plan of care including ask me three and self management. Services Needed at Discharge: DME Agency, Home Health Care Services, Physical Therapy, Transportation - MH Services (Omit if N/A) Current MH Services: [facility]
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
[2018-08-08 14:36] LABS: Other Cells 2
[2018-08-08 21:03] LABS: Streptococcus Pneumoniae Ag, U Negative (Negative)
== END 2018-08-07 15:40 | disposition home health service (06) | DRG 871 ==
LOC: ER 21:42 → MS 21:46
PROVIDERS: Nurse Practitioner; Nurse Practitioner Family; Admitting Provider Internal Medicine; Emergency Provider Physician Assistant; PCP Family Medicine; Visit Provider Internal Medicine
DX: J18.1 Lobar pneumonia, unspecified organism (principal); F31.60 Bipolar disorder, current episode mixed, unspecified; R65.20 Severe sepsis without septic shock; E86.0 Dehydration; F41.8 Other specified anxiety disorders; K21.9 Gastro-esophageal reflux disease without esophagitis; R21 Rash and other nonspecific skin eruption; F10.20 Alcohol dependence, uncomplicated; E87.6 Hypokalemia; Z96.0 Presence of urogenital implants; Z66 Do not resuscitate; A41.9 Sepsis, unspecified organism; G93.41 Metabolic encephalopathy
CPT/HCPCS: 36415; 51702; 71275; 74177; 80048; 80053; 80076; 80307; 82805; 83690; 84145; 87040; 87449; 93005; 96361; 96365; 97162; 97530; 99223; 99232; 99233; 99239; 99285; J1650; 70450; 71046; 80320; 81003; 81015; 82140; 83605; 83735; 84443; 84484; 85025; 85379; 87070; 87205; 87450; 87581; 93010; J0696; J2060; J2930; J3490; J7512; J7613; J7620

== ENCOUNTER 2018-09-27 14:18 | Outpatient (REF) | payer MEDICARE, MEDICAID, SELFPAY ==
--- NOTE | 2018-09-27 13:40 | SKI_PTH ---
PATIENT: RUCHI MARSH LOC: [facility] U#:[id number] AGE/SX: 52/F ROOM: RE09/27/[address]: Eliot Sanchez MD : [id number] BED: DIS: 09/27/2018 SPEC #: [id number] RECD: 09/30/18 12:38 STATUS: EM REQ #: [id number] YURI: 09/27/18 13:[address]: Eliot Sanchez DEPT: Surgical Specimen RECD BY: Milka Lanza Tissues: 1 - SKIN BIOPSY(SHAVE/PUNCH) Procedures: SKIN LEVEL 4 Comments: [id number]
== END 2018-09-27 14:38 ==
LOC: LBN 14:18
PROVIDERS: PCP Family Medicine; Visit Provider Family Medicine
DX: D22.62 Melanocytic nevi of left upper limb, including shoulder (principal)
CPT/HCPCS: 88305

== ENCOUNTER 2018-11-14 01:49 | Outpatient (CLI) | payer MEDICARE, MEDICAID, SELFPAY ==
[2018-11-14 13:39] LABS: Hemoglobin A1C 5.3 % (4.5-6.2)
[2018-11-14 13:56] LABS: Calculated LDL 167 mg/dL; Cholesterol 253 mg/dL (50-200); HDL Cholesterol 56 mg/dL (40-60); Triglyceride 153 mg/dL (30-150)
[2018-11-15 12:18] LABS: ALT 22 U/L (14-59); AST 24 U/L (15-37); Albumin 3.5 g/dL (3.4-5.0); Alkaline Phosphatase 173 U/L (46-116); Bilirubin, Direct < 0.05 mg/dL (0.00-0.20); Bilirubin, Total 0.2 mg/dL (0.2-1.0); Total Protein 6.7 g/dL (6.4-8.2)
== END 2018-11-14 02:09 ==
PROVIDERS: PCP Family Medicine; Visit Provider Family Medicine
DX: E78.89 Other lipoprotein metabolism disorders (principal); R73.09 Other abnormal glucose; E74.39 Other disorders of intestinal carbohydrate absorption; R14.0 Abdominal distension (gaseous)
CPT/HCPCS: 36415; 80061; 80076; 83036

== ENCOUNTER 2018-12-03 01:02 | Emergency (ER) | payer MEDICARE, MEDICAID, SELFPAY ==
[2018-12-03 01:10] VITALS: BP 114/89; PULSE 112; RESP 16; TEMP 36.4; O2SAT 95
--- NOTE | 2018-12-03 01:31 | W.ED.GENAD ---
Discharge Plan Disposition Patient Disposition: HOME Discharge Details Chief Complaint: PsychEval Clinical Impression: Self-harming behavior, Multiple abrasions Primary Care Provider: Eliot Sanchez ED Provider: Osbaldo Small Home Meds and New Rx's Prescriptions: No Action calcium carbonate-vitamin D3 [Calcium 500 + D] 500 mg(1,250mg) -400 unit tablet 1 tab PO BID Qty: 180 RF: 3 guaifenesin [Mucinex] 600 mg tablet extended release 12hr 600 mg PO BID PRN (Reason: cold symptoms) Qty: 20 RF: 0 magnesium oxide 400 mg (241.3 mg magnesium) tablet 400 mg PO DAILY Qty: 90 RF: 3 multivitamin [Daily Multi-Vitamin] tablet 1 tab PO DAILY Qty: 90 RF: 3 loratadine 10 mg tablet 10 mg PO DAILY RF: 0 benzonatate [Tessalon Perles] 100 mg capsule 100 mg PO TID PRN (Reason: cough) Qty: 20 RF: 0 albuterol sulfate [Ventolin HFA] 90 mcg/actuation HFA aerosol inhaler 2 puff IH QID PRN (Reason: shortness of breath or wheezing) Qty: 6.7 RF: 1 omeprazole 20 mg capsule,delayed release(DR/EC) 20 mg PO DAILY@0730 Qty: 90 RF: 4 midodrine 2.5 mg tablet 2.5 mg PO TID Qty: 90 RF: 1 pregabalin [Lyrica] 300 mg capsule 300 mg PO BID Qty: 28 RF: 5 zinc oxide 20 % Ointment 40 g topical PRN PRNQty: 0 RF: 0 clotrimazole 1 % Cream 40 g topical PRN PRNQty: 0 RF: 0 vits A and D-white pet-lanolin Ointment 40 g topical PRN PRNQty: 0 RF: 0 quetiapine [Seroquel] 100 MG tablet 400 mg PO HS Qty: 28 RF: 0 clonazepam 0.5 MG tablet,disintegrating 0.5 mg PO BID PRNQty: 10 RF: 0 quetiapine 25 mg tablet 50 mg PO TID RF: 0 Discharge Instructions Instructions: Abrasion (ED), Suicide Prevention for Adults (ED) Additional Instructions: Please confirm your medication dosing with your primary care physician and mental health clinician and take as prescribed. Please follow-up with [facility] as scheduled tomorrow. Please contact your primary care physician to arrange follow-up. Return to the ER for any worsening or new concerning symptoms. You can always return to the emerge department if you need a safe place to go. [facility]] Eliot Sanchez [Primary Care Provider] - Discharge Data Discharge Date/Time-TO BE ENTERED AT DEPARTURE: 12/03/18 09:20 Medical Decision Making <Osbaldo Small MD - Last Filed: 12/03/18 20:00> Patient here for psychiatric evaluation. She admits to alcohol use tonight but clinically appears sober with normal mental status, speech, gait. Denies ingestion. Complains of chronic chest pain unchanged. Will obtain EKG and laboratory studies. CPSO ordered. Mental health eval ordered. Other than sinus tachycardia patient's EKG is unremarkable. Laboratory studies also unremarkable. Alcohol level 163. Currently asleep and is been very cooperative. Discussed with mental health who will see first thing in the morning. Medical Records Medical records reviewed: Yes I reviewed the patient's medical records. Lab Data Lab results reviewed: Yes I reviewed the patient's lab results. ECG Data Attestation: I personally reviewed and interpreted this ECG (s) as follows: Prior ECG tracings: available for review Interpretation: Sinus tachycardia at a rate of 111. Normal axis and intervals. No acute ST changes. No significant change from previous. <Jose Alberto Tilley MD - Last Filed: 12/24/18 02:16> 8:00 --care signed out by Dr. Small. Please see his documentation regarding initial ED presentation and course. Dr. Small notes self-harm, awaiting crisis evaluation. 9:05 --patient was evaluate by crisis screener and deemed stable for discharge. [facility] will follow up with the patient later today and she has appointment scheduled for tomorrow morning. I reassessed the patient. Patient is mentating well with full capacity. Patient denies suicidality and homicidality. She notes that she feels under control down does not intend to harm herself any further. Plan discussed with the patient. Disposition decision was made weighing the risks and benefits of hospitalization versus outpatient treatment, the risk for further decompensation, and the patient's wishes. The patient was stable and requested discharge. Prior to discharge, my usual and customary return precautions were reviewed with the patient - this included follow-up instructions and reason to return to the emergency department if condition worsens, does not improve as expected, or other new concerns arise. HPI <Osbaldo Small MD - Last Filed: 12/03/18 20:00> General Mode of arrival: EMS. Date/Time Provider Initiated Documentation: 12/03/18 01:18. Limitations to Documentation: no limitations. Information obtained by: patient, EMS, RN notes reviewed and old records reviewed. HPI Narrative: Patient is brought in by EMS for psychiatric evaluation. Patient has history of psychiatric problems with previous visits to ED for suicidal ideation, homicidal ideation. Currently not taking her medications because she has run out. She is not clear as to when she stopped taking them. She reports that her called 911 tonight because he was concerned for her well-being. She has been cutting herself. She has been drinking tonight. She denies any drug use. She reports chronic chest pain which is unchanged. She has no new pain. She has no shortness of breath. She has no abdominal pain or nausea. She denies any drug ingestion such as Tylenol, aspirin, Benadryl. Related Data Home Medications Medication Instructions Recorded Confirmed clonazepam 0.5 mg PO BID PRN #10 tab-cap 08/07/18 12/03/18 clotrimazole 40 g TOPICAL PRN PRN #0 g 08/07/18 12/03/18 quetiapine [Seroquel] 400 mg PO HS #28 tab-cap 08/07/18 12/03/18 vits A and D-white pet-lanolin 40 g TOPICAL PRN PRN #0 g 08/07/18 12/03/18 zinc oxide 40 g TOPICAL PRN PRN #0 g 08/07/18 12/03/18 calcium carbonate 500 mg (1,250 1 tab PO BID #180 tab-cap 08/20/18 12/03/18 mg)-vitamin D3 400 unit tablet guaifenesin 600 mg tablet, 600 mg PO BID PRN #20 tab 08/20/18 12/03/18 extended release 12 hr magnesium oxide 400 mg (241.3 mg 400 mg PO DAILY #90 tab-cap 08/20/18 12/03/18 magnesium) tablet multivitamin 1 tab PO DAILY #90 tab-cap 08/20/18 12/03/18 omeprazole 20 mg capsule,delayed 20 mg PO DAILY@0730 #90 cap 10/03/18 12/03/18 release midodrine 2.5 mg tablet 2.5 mg PO TID #90 tab 10/23/18 12/03/18 albuterol sulfate 90 mcg/actuation 2 puff IH QID PRN #6.7 gm 10/30/18 12/03/18 aerosol inhaler pregabalin 300 mg capsule 300 mg PO BID #28 tab-cap 11/12/18 12/03/18 benzonatate 100 mg capsule 100 mg PO TID PRN #20 cap 11/15/18 12/03/18 loratadine 10 mg tablet 10 mg PO DAILY tab 11/15/18 12/03/18 quetiapine 50 mg PO TID 12/03/18 12/03/18 Previous Rx's Medication Instructions Recorded clonazepam 0.5 mg PO BID PRN #10 tab-cap 08/07/18 clotrimazole 40 g TOPICAL PRN PRN #0 g 08/07/18 quetiapine [Seroquel] 400 mg PO HS #28 tab-cap 08/07/18 vits A and D-white pet-lanolin 40 g TOPICAL PRN PRN #0 g 08/07/18 zinc oxide 40 g TOPICAL PRN PRN #0 g 08/07/18 calcium carbonate 500 mg (1,250 1 tab PO BID #180 tab-cap 08/20/18 mg)-vitamin D3 400 unit tablet guaifenesin 600 mg tablet, 600 mg PO BID PRN #20 tab 08/20/18 extended release 12 hr magnesium oxide 400 mg (241.3 mg 400 mg PO DAILY #90 tab-cap 08/20/18 magnesium) tablet multivitamin 1 tab PO DAILY #90 tab-cap 08/20/18 omeprazole 20 mg capsule,delayed 20 mg PO DAILY@0730 #90 cap 10/03/18 release midodrine 2.5 mg tablet 2.5 mg PO TID #90 tab 10/23/18 albuterol sulfate 90 mcg/actuation 2 puff IH QID PRN #6.7 gm 10/30/18 aerosol inhaler pregabalin 300 mg capsule 300 mg PO BID #28 tab-cap 11/12/18 benzonatate 100 mg capsule 100 mg PO TID PRN #20 cap 11/15/18 Allergies Allergy/AdvReac Type Severity Reaction Status Date / Time gabapentin Allergy Unknown unknown Verified 11/15/18 11:08 aripiprazole [From Abilify] AdvReac Mild Psychosis Verified 11/15/18 11:08 General Stated Complaint: PsychEval LASHELL: 2 Review of Systems <Osbaldo Small MD - Last Filed: 12/03/18 20:00> Review of Systems Narrative: 12/09 Review of Systems completed and is negative except as stated above in HPI (Systems reviewed: Const, ENT, Resp, CV, GI, , MSK, Skin, Neuro, Psych) PFSH <Osbaldo Small MD - Last Filed: 12/03/18 20:00> Medical History Agoraphobia (Chronic) Alcoholism (Acute 05/17/95) Anxiety (Chronic) Bipolar disorder (Acute) Depression (Chronic) Endometriosis (Chronic) Fibrocystic disease of breast (Chronic) GERD (gastroesophageal reflux disease) (Chronic) Metabolic encephalopathy (Acute 04/13/14) Neoplasm of skin (Resolved 12/29/13) Opiate overdose (Acute 04/13/14) Suicide attempt (Resolved 08/15/85) Tobacco dependence (Chronic) Surgical History Abdominal hysterectomy 04/26/02 BSO Colonoscopy - MAC 02/10/03 EXC. ENDOMETRIOSIS (11/29/98) Ligation of fallopian tube 09/18/96 Social History Smoking/Tobacco Use Status: Current every day Tobacco Type: cigarettes Smokeless tobacco user: dissolvable tobacco Quit status: not considering quitting Alcohol Intake: current Alcohol Intake frequency: a few times a month Alcohol type: beer Drug use: Current Sobriety Substance use type: does not use Do you feel safe at home: Yes Do you feel safe in your relationship?: Yes Exam <Osbaldo Small MD - Last Filed: 12/03/18 20:00> Narrative Exam Narrative: Vitals: Afebrile. Mild tachycardia on arrival. Otherwise normal vitals. Const: WDWN female in NAD. HEENT: NC/AT. Normal facial exam. Eyes: Normal conjunctiva and sclera. PERRL and EOMI. Neck: Supple. Trachea midline. Lungs: Normal respiratory effort. Lungs are clear. Cor: RRR without murmur/gallop. Good radial pulses. GI: Soft. NT/ND. No guarding or rebound. Neuro: A+O x 3. CN grossly in tact. Speech and gait are normal. Good strength and no focal deficit. Ext: No C/C/E. Skin: Multiple superficial abrasions to neck, arms, right heard from cutting There are no lacerations. Course <Osbaldo Small MD - Last Filed: 12/03/18 20:00> Vital Signs Vital signs: Vital Signs Temperature 97.6 F 12/03/18 01:10 Pulse 112 H 12/03/18 01:10 Respiratory Rate 16 12/03/18 01:10 Blood Pressure 114/89 12/03/18 01:10 Pulse Oximetry 95 12/03/18 01:10 Temperature 97.6 F 12/03/18 01:10 Temperature Source Oral 12/03/18 01:10 Pulse 112 H 12/03/18 01:10 Respiratory Rate 16 12/03/18 01:10 Respiratory Effort 12/03/18 01:13 Blood Pressure 114/89 12/03/18 01:10 Blood Pressure Position Sitting 12/03/18 01:10 Pulse Oximetry 95 12/03/18 01:10 Oxygen Delivery Method Room Air 12/03/18 01:10 Oxygen Flow Rate 0 12/03/18 01:10 Pain Level 0 12/03/18 01:10
[2018-12-03 01:51] LABS: Absolute Basophil Count 0.08 k/cumm (0.0-0.2); Absolute Eosinophil Count 0.13 k/cumm (0.0-0.7); Absolute Lymphocyte Count 4.41 k/cumm (1.2-3.4); Absolute Monocyte Count 0.33 k/cumm (0.11-0.7); Absolute Neutrophil Count 3.36 k/cumm (1.2-6.7); Eosinophils % 1.5; HCT 45.5 % (36.0-46.0); HGB 15.2 g/dL (12.0-15.5); Immature Grans % 1.2; Lymphocytes % 52.4; Mean Corp. HGB Concentration 33.4 g/dL (32.0-36.0); Mean Corpuscular Hemoglobin 32.2 pg (27.0-33.0); Mean Corpuscular Volume 96.4 fL (80-95); Monocytes % 3.9; Platelet Count 302 x1000/uL (130-400); RBC 4.72 m/cumm (4.00-5.20); RBC Distribution Width 13.8 % (11.7-14.6); White Blood Cell Count 8.41 k/cumm (4.4-10.8)
[2018-12-03 02:04] LABS: ALT 11 U/L (14-59); AST 17 U/L (15-37); Albumin 3.7 g/dL (3.4-5.0); Alkaline Phosphatase 183 U/L (46-116); Anion Gap 12.4 mmol/L (3-11); BUN 6 mg/dL (7-18); Bilirubin, Total 0.1 mg/dL (0.2-1.0); CO2 25.6 mmol/L (21.0-32.0); CREATININE 0.82 mg/dL (0.55-1.02); Chloride 105 mmol/L (98-107); ETHANOL BLOOD 163.8 mg/dL (<3); Glucose 111 mg/dL (70-100); Sodium 143 mmol/L (136-145); Total Protein 8.1 g/dL (6.4-8.2)
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
[2018-12-03 02:19] LABS: Salicylate 5.6 mg/dL (2.8-20.0)
[2018-12-03 02:33] LABS: Acetaminophen < 10 ug/mL (10-30)
--- NOTE | 2018-12-03 08:26 | NUR.NOTE ---
Nursing Note: assumed primary care of this patient. pt is currently sleeping with adequate chest rise and fall, appears comfortable. 1:1 observation remains for patient safety. plan to follow up with mental health today. continue to observe.
--- NOTE | 2018-12-03 09:09 | NUR.NOTE ---
Nursing Note: pt unable to get her morning meds until this afternoon. will dose pt with her scheduled medication here today and then plan for d/c. pt will follow up with mental health tomorrow. pt is going to go home with rct and then her dgt will pickup her medications this afternoon. pt okay with this plan.denies any SI or HI.
[2018-12-03] MEDS: Pregabalin 100 MG CAP 300 MG PO (09:28)
[2018-12-03] MEDS: QUEtiapine 25 MG TAB 50 MG PO (09:28)
[2018-12-03] MEDS: Midodrine 2.5 MG TAB PO (09:28)
== END 2018-12-03 09:20 | disposition home or self-care (01) ==
PROVIDERS: Emergency Provider Emergency Medicine; PCP Family Medicine
DX: F41.8 Other specified anxiety disorders (principal); R45.851 Suicidal ideations; S51.811D Laceration without foreign body of right forearm, subsequent encounter; S51.812D Laceration without foreign body of left forearm, subsequent encounter; R00.0 Tachycardia, unspecified; T79.8XXD Other early complications of trauma, subsequent encounter; Z91.14 Patient's other noncompliance with medication regimen; Z91.5 Personal history of self-harm
CPT/HCPCS: 36415; 80053; 93005; 99285; 80320; 80329; 85025; 93010; 99284

== ENCOUNTER 2019-01-01 20:30 | Emergency (ER) | payer MEDICARE, MEDICAID, SELFPAY ==
[2019-01-01] VITALS (19 sets, daily range): BP systolic 92–102; BP diastolic 60–71; PULSE 94–102; RESP 16–25; TEMP 36.7; O2SAT 89–98
--- NOTE | 2019-01-01 20:47 | W.ED.GENAD ---
Discharge Plan Disposition Patient Disposition: HOME Condition: Good Discharge Details Chief Complaint: OD/Poison Clinical Impression: Alcohol intoxication Primary Care Provider: Eliot Sanchez ED Provider: Josue Kebede Home Meds and New Rx's Prescriptions: No Action calcium carbonate-vitamin D3 [Calcium 500 + D] 500 mg(1,250mg) -400 unit tablet 1 tab PO BID Qty: 180 RF: 3 guaifenesin [Mucinex] 600 mg tablet extended release 12hr 600 mg PO BID PRN (Reason: cold symptoms) Qty: 20 RF: 0 magnesium oxide 400 mg (241.3 mg magnesium) tablet 400 mg PO DAILY Qty: 90 RF: 3 multivitamin [Daily Multi-Vitamin] tablet 1 tab PO DAILY Qty: 90 RF: 3 loratadine 10 mg tablet 10 mg PO DAILY RF: 0 benzonatate [Tessalon Perles] 100 mg capsule 100 mg PO TID PRN (Reason: cough) Qty: 20 RF: 0 albuterol sulfate [Ventolin HFA] 90 mcg/actuation HFA aerosol inhaler 2 puff IH QID PRN (Reason: shortness of breath or wheezing) Qty: 6.7 RF: 1 omeprazole 20 mg capsule,delayed release(DR/EC) 20 mg PO DAILY@0730 Qty: 90 RF: 4 midodrine 2.5 mg tablet 2.5 mg PO TID Qty: 90 RF: 1 pregabalin [Lyrica] 300 mg capsule 300 mg PO BID Qty: 14 RF: 5 zinc oxide 20 % Ointment 40 g topical PRN PRNQty: 0 RF: 0 clotrimazole 1 % Cream 40 g topical PRN PRNQty: 0 RF: 0 vits A and D-white pet-lanolin Ointment 40 g topical PRN PRNQty: 0 RF: 0 quetiapine [Seroquel] 100 MG tablet 400 mg PO HS Qty: 28 RF: 0 clonazepam 0.5 MG tablet,disintegrating 0.5 mg PO BID PRNQty: 10 RF: 0 quetiapine 25 mg tablet 50 mg PO TID RF: 0 Discharge Instructions Instructions: Alcohol Intoxication (ED) Additional Instructions: I would recommend decreasing your regular alcohol intake. Please do not take any extra of your medications. Please use your social media developer and support structures. If you notice any worsening of your symptoms, or any new symptoms such as vomiting, diarrhea, fever, chills, shortness of breath, chest pain, numbness, weakness, or fainting , please return immediately to the emergency department for reevaluation. Please follow up with your primary care provider as soon as possible for reassessment and reevaluation. As always, it was a pleasure participating in your medical care today. Referrals: Eliot Sanchez [Primary Care Provider] - Medical Decision Making This is a 53-year-old female with past medical history of GERD, depression, previous suicide attempts, presents today for evaluation of intoxication and Notable benzodiazepine use. Patient states that today she wanted to feel herself so because of that she has been drinking since 8 AM, and has been taking multiple of her 0.5 mg clonazepam's. She states that she has been taking them gradually throughout the day. She states that her last doses were at 6 PM, 2-1/2 hours prior to arrival. she denies any focal point of overdose. She denies any intent to self-harm. She denies any current suicidal ideations. She states that she has not taken any other additional medications. Exam demonstrates a well-appearing female who does appear mildly intoxicated. However she demonstrates no focal neurologic deficits. She ambulates well without difficulty, and demonstrates a GCS of 15, and notably intact gag reflex. We will provide supportive care, observe, evaluate for any acute life-threatening etiology and reassess. 10:04 PM Patient's laboratory work-up is returned relatively unremarkable. White count normal, renal function normal, electrolytes normal, TSH, urinalysis both normal. Acetaminophen and salicylates unremarkable. Urine drug screen is butler negative. Alcohol is 184. This would certainly seem to contradict the patient's personally stated intoxicated history of taking multiple clonazepam. She remains pleasant here. She continues to deny suicidal or homicidal ideations. I suspect she is just mildly intoxicated. We will continue to observe and I feel she can eventually be taken home. 1:01 AM On reassessment the patient demonstrates notable clinical sobriety. Alcohol level testing over an hour ago is under the normal limits. Clinically she looks well. She remained stable. On reassessment she denies any homicidal or suicidal ideations. Laboratory work-up shows no evidence of significant abnormality, including no evidence of atypical drug ingestion. Do feel that the patient be safely discharged home back to her family. We will continue to observe her here until her ride is available. 5:45 AM Patient was reassessed and continues to remain hemodynamically stable and clinically sober. No signs of intoxication. The patient is able to speak clearly. There is no demonstration of any slurring of speech. There is evidence of clear decision making capacity. Patient is able to ambulate well without any difficulty. There are no signs of ataxia or stumbling motions. Right is available. Patient will be discharged home. She continues to deny any homicidal or suicidal ideations. I have extensively reviewed the treatment plan and discharge instructions with the patient. I have addressed all patient concerns at this time. The patient was made aware of what symptoms to monitor for that would warrant a return to the emergency department. Discussed the plan with the patient, they demonstrate verbal understanding and agreement with our assessment and plan at this time. EKG 20: 42 Rate 97, intervals unremarkable. No significant ST elevations or depressions. No T wave inversions, no significant Q waves. No evidence of STEMI. No evidence of prolongation for the QRS complex. HPI General Date/Time Provider Initiated Documentation: 01/01/19 20:31. HPI Narrative: This is a 53-year-old female with a past medical history of previous suicidal ideations and overdose, depression, psychosis, anxiety, hypertension, GERD, medical noncompliance, chronic alcoholism, who presents today for evaluation of intoxication and questionable overdose. Patient states that today she just wanted to feel normal. Because of this she has been drinking since 8 AM, and throughout the day has also been taking multiple 0.5 mg clonazepam's. She has been giving variable amounts, to EMS she states that she took 12 throughout the day, she states that she is uncertain how many she took, but somewhere between 10 and 20. She denies any suicidal ideations. She denies any homicidal ideations. She states that she just wanted to feel herself. She denies taking any additional medications. Her blister pack does appear to be open and it looks like just her clonazepam has been taken from a few of the pockets, roughly 10. Patient has no other complaints at this time. No other modifying factors. She denies chest pain, shortness of breath, nausea vomiting or diarrhea. She denies headache numbness tingling or weakness. EMS reports that she had unremarkable vital signs. No other abnormalities. Related Data Home Medications Medication Instructions Recorded Confirmed clonazepam 0.5 mg PO BID PRN #10 tab-cap 08/07/18 01/01/19 clotrimazole 40 g TOPICAL PRN PRN #0 g 08/07/18 01/01/19 quetiapine [Seroquel] 400 mg PO HS #28 tab-cap 08/07/18 01/01/19 vits A and D-white pet-lanolin 40 g TOPICAL PRN PRN #0 g 08/07/18 01/01/19 zinc oxide 40 g TOPICAL PRN PRN #0 g 08/07/18 01/01/19 calcium carbonate 500 mg (1,250 1 tab PO BID #180 tab-cap 08/20/18 01/01/19 mg)-vitamin D3 400 unit tablet guaifenesin 600 mg tablet, 600 mg PO BID PRN #20 tab 08/20/18 01/01/19 extended release 12 hr magnesium oxide 400 mg (241.3 mg 400 mg PO DAILY #90 tab-cap 08/20/18 01/01/19 magnesium) tablet multivitamin 1 tab PO DAILY #90 tab-cap 08/20/18 01/01/19 omeprazole 20 mg capsule,delayed 20 mg PO DAILY@0730 #90 cap 10/03/18 01/01/19 release albuterol sulfate 90 mcg/actuation 2 puff IH QID PRN #6.7 gm 10/30/18 01/01/19 aerosol inhaler benzonatate 100 mg capsule 100 mg PO TID PRN #20 cap 11/15/18 01/01/19 loratadine 10 mg tablet 10 mg PO DAILY tab 11/15/18 01/01/19 quetiapine 50 mg PO TID 12/03/18 01/01/19 midodrine 2.5 mg tablet 2.5 mg PO TID #90 tab 12/25/18 01/01/19 pregabalin 300 mg capsule 300 mg PO BID #14 tab-cap 12/25/18 01/01/19 Previous Rx's Medication Instructions Recorded clonazepam 0.5 mg PO BID PRN #10 tab-cap 08/07/18 clotrimazole 40 g TOPICAL PRN PRN #0 g 08/07/18 quetiapine [Seroquel] 400 mg PO HS #28 tab-cap 08/07/18 vits A and D-white pet-lanolin 40 g TOPICAL PRN PRN #0 g 08/07/18 zinc oxide 40 g TOPICAL PRN PRN #0 g 08/07/18 calcium carbonate 500 mg (1,250 1 tab PO BID #180 tab-cap 08/20/18 mg)-vitamin D3 400 unit tablet guaifenesin 600 mg tablet, 600 mg PO BID PRN #20 tab 08/20/18 extended release 12 hr magnesium oxide 400 mg (241.3 mg 400 mg PO DAILY #90 tab-cap 08/20/18 magnesium) tablet multivitamin 1 tab PO DAILY #90 tab-cap 08/20/18 omeprazole 20 mg capsule,delayed 20 mg PO DAILY@0730 #90 cap 10/03/18 release albuterol sulfate 90 mcg/actuation 2 puff IH QID PRN #6.7 gm 10/30/18 aerosol inhaler benzonatate 100 mg capsule 100 mg PO TID PRN #20 cap 11/15/18 midodrine 2.5 mg tablet 2.5 mg PO TID #90 tab 12/25/18 pregabalin 300 mg capsule 300 mg PO BID #14 tab-cap 12/25/18 Allergies Allergy/AdvReac Type Severity Reaction Status Date / Time gabapentin Allergy Unknown unknown Verified 11/15/18 11:08 aripiprazole [From Abilify] AdvReac Mild Psychosis Verified 11/15/18 11:08 General Stated Complaint: OD/Poison LASHELL: 3 Review of Systems All systems reviewed & are unremarkable except as noted in HPI and below PFSH Social History Smoking/Tobacco Use Status: Current every day Tobacco Type: cigarettes Smokeless tobacco user: dissolvable tobacco Quit status: not considering quitting Alcohol Intake: current Alcohol Intake frequency: 3 or more drinks per day Alcohol type: beer, wine and hard liquor Drug use: Binges Substance use type: does not use and opiates Details: pt statets that she may have had oxycodone lately Do you feel safe at home: Yes Do you feel safe in your relationship?: Yes Exam Narrative Exam Narrative: 1.Const: Well-nourished, Well-developed, appearing stated age 2.Eyes: PERRL, no conjunctival injection, and symmetrical lids. 3.ENT: Atraumatic external nose and ears. Moist MM. Neck: Symmetric, trachea midline, No thyromegaly. 4.CVS: +S1/S2, No murmurs or gallops. Peripheral pulses 2+ and equal in all extremities. Brisk capillary refill in all extremities. 5.RESP: Unlabored respiratory effort. Clear to auscultation bilaterally. No wheezes rales or rhonchi 6.GI: Soft, Nontender/Nondistended, No hepatosplenomegaly. No guarding or rebound. 7.MSK: Normocephalic/Atraumatic, Extremities w/o deformity or ttp No cyanosis or clubbing, Normal movement of all extremities 8.Skin: Warm, Dry. No rashes or lesions. 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 Sensation grossly intact, no focal neurologic deficits. Protecting airway well. Gag reflex notably intact. Ambulates well around the department without any signs of severe imbalance. 10.Psych: (AAO) x3. Notably intoxicated. However GCS of 15 Course Vital Signs Vital signs: Vital Signs Temperature 36.7 C 01/01/19 20:41 Pulse 98 H 01/01/19 20:41 Respiratory Rate 16 01/01/19 20:41 Blood Pressure 101/71 01/01/19 20:41 Pulse Oximetry 94 L 01/01/19 20:41 Temperature 36.7 C 01/01/19 20:41 Temperature Source Temporal Artery Scan 01/01/19 20:41 Pulse 98 H 01/01/19 20:41 Respiratory Rate 16 01/01/19 20:41 Blood Pressure 101/71 01/01/19 20:41 Pulse Oximetry 94 L 01/01/19 20:41 Oxygen Delivery Method Room Air 01/01/19 20:41 Oxygen Flow Rate 0 01/01/19 20:41
[2019-01-01 20:53] LABS: BE (Venous) -1.4 mmol/L (-3-3); HCO3 (Venous) 24 mmol/L (22-28); O2 Sat (Venous) 70 % (70-80); TCO2 (Venous) 22 mmol/L (22-29); pCO2 (Venous) 45 mm/Hg (34-47); pH (Venous) 7.34 (7.32-7.43); pO2 (Venous) 37 mm/Hg (28-44)
[2019-01-01 20:56] LABS: Abs Immature Grans 0.08 k/cumm (0.0-0.09); Absolute Basophil Count 0.05 k/cumm (0.0-0.2); Absolute Eosinophil Count 0.12 k/cumm (0.0-0.7); Absolute Lymphocyte Count 4.03 k/cumm (1.2-3.4); Absolute Monocyte Count 0.45 k/cumm (0.11-0.7); Absolute Neutrophil Count 4.82 k/cumm (1.2-6.7); Basophils % 0.5; Eosinophils % 1.3; HCT 40.1 % (36.0-46.0); HGB 13.2 g/dL (12.0-15.5); Immature Grans % 0.8; Lymphocytes % 42.2; Mean Corp. HGB Concentration 32.9 g/dL (32.0-36.0); Mean Corpuscular Hemoglobin 31.4 pg (27.0-33.0); Mean Corpuscular Volume 95.2 fL (80-95); Mean Platelet Volume 8.4 fL (8.0-11.0); Monocytes % 4.7; Neutrophils % 50.5; Platelet Count 244 x1000/uL (130-400); RBC 4.21 m/cumm (4.00-5.20); RBC Distribution Width 14.1 % (11.7-14.6); White Blood Cell Count 9.55 k/cumm (4.4-10.8)
[2019-01-01 21:00] LABS: Bilirubin Negative (Negative); Blood Negative (Negative); Clarity Clear (Clear); Glucose Negative (Negative); Ketones Negative (Negative); Leukocyte Esterase Negative (Negative); Nitrite Negative (Negative); Specific Gravity <= 1.005 (1.005-1.025); Urobilinogen 0.2 EU/dL (Up TO 0.2)
[2019-01-01 21:19] LABS: Acetaminophen < 2 ug/mL (10-30); Salicylate 5.7 mg/dL (2.8-20.0)
[2019-01-01 21:28] LABS: ALT 16 U/L (14-59); AST 17 U/L (15-37); Albumin 3.5 g/dL (3.4-5.0); Alkaline Phosphatase 174 U/L (46-116); BUN 13 mg/dL (7-18); Bilirubin, Total 0.1 mg/dL (0.2-1.0); CREATININE 0.72 mg/dL (0.55-1.02); Calcium 8.8 mg/dL (8.5-10.1); Chloride 106 mmol/L (98-107); ETHANOL BLOOD 184.7 mg/dL (<3); Glucose 104 mg/dL (70-100); Potassium 3.8 mmol/L (3.5-5.1); Sodium 141 mmol/L (136-145); TSH (W/Ref FT4) 3.04 uIU/mL (0.36-3.74); Total Protein 7.3 g/dL (6.4-8.2)
[2019-01-01 21:31] LABS: *AMPHETAMINES SCREEN URINE Negative (Negative); *BARBITURATES SCREEN URINE Negative (Negative); *BENZODIAZEPINES SCREEN URINE Negative (Negative); Cannabinoids THC Negative (Negative); Cocaine Screen,Urine Negative (Negative); METHADONE URINE SCREEN Negative (Negative); OPIATES URINE SCREEN Negative (Negative)
[2019-01-01 21:32] LABS: Tricyclic Antidepressants Negative (Negative)
[2019-01-02 00:02] LABS: ETHANOL BLOOD 79.7 mg/dL (<3)
--- NOTE | 2019-01-02 00:05 | NUR.NOTE ---
Assumed care of pt, reports from BALAJI Goldstein. Sleeping on right side. Even, unlabored resp.
[2019-01-02] MEDS: Normal Saline 1,000 ML 1000 ML IV (00:39)
[2019-01-02 01:37] VITALS: BP 103/59; PULSE 98; RESP 16; O2SAT 98
[2019-01-02 03:35] VITALS: BP 90/64; PULSE 89; RESP 16; O2SAT 95
--- NOTE | 2019-01-02 03:36 | NUR.NOTE ---
Sleeping in right lateral position. Easily arousable to voice. Denies pain.
[2019-01-02 05:39] VITALS: BP 103/56; PULSE 90; RESP 16; O2SAT 96
--- NOTE | 2019-01-02 05:40 | NUR.NOTE ---
IV removed from RAC. Discharge instructions reviewed with verbal understanding. ambulated to exit with steady gait.
== END 2019-01-02 05:50 | disposition home or self-care (01) ==
PROVIDERS: Emergency Provider Student in an Organized Health Care Education/Training Program; PCP Family Medicine
DX: T42.4X2A Poisoning by benzodiazepines, intentional self-harm, initial encounter (principal); F10.120 Alcohol abuse with intoxication, uncomplicated; F41.8 Other specified anxiety disorders
CPT/HCPCS: 36415; 80053; 80307; 82805; 93005; 96360; 99284; 80320; 80329; 81003; 84443; 85025; 93010

== ENCOUNTER 2019-02-11 22:15 | Emergency (ER) | payer MEDICARE, MEDICAID, SELFPAY ==
[2019-02-11 22:26] VITALS: BP 103/82; PULSE 112; RESP 20; TEMP 36.9; O2SAT 93
--- NOTE | 2019-02-11 22:40 | ED.GENADUL_ITS ---
Discharge Plan Disposition Patient Disposition: HOME Condition: Good Discharge Details Chief Complaint: Laceration Clinical Impression: Depression, Deliberate self-cutting Primary Care Provider: Eliot Sanchez ED Provider: Dilcia Panda [place] Meds and New Rx's Prescriptions: Continued calcium carbonate-vitamin D3 [Calcium 500 + D] 500 mg(1,250mg) -400 unit tablet 1 tab PO BID Qty: 180 RF: 3 guaifenesin [Mucinex] 600 mg tablet extended release 12hr 600 mg PO BID PRN (Reason: cold symptoms) Qty: 20 RF: 0 magnesium oxide 400 mg (241.3 mg magnesium) tablet 400 mg PO DAILY Qty: 90 RF: 3 multivitamin [Daily Multi-Vitamin] tablet 1 tab PO DAILY Qty: 90 RF: 3 doxycycline hyclate 100 mg capsule 100 mg PO Q12H Qty: 14 RF: 0 loratadine 10 mg tablet 10 mg PO DAILY RF: 0 benzonatate [Tessalon Perles] 100 mg capsule 100 mg PO TID PRN (Reason: cough) Qty: 20 RF: 0 albuterol sulfate [Ventolin HFA] 90 mcg/actuation HFA aerosol inhaler 2 puff IH QID PRN (Reason: shortness of breath or wheezing) Qty: 6.7 RF: 1 omeprazole 20 mg capsule,delayed release(DR/EC) 20 mg PO DAILY@0730 Qty: 90 RF: 4 midodrine 2.5 mg tablet 2.5 mg PO TID Qty: 90 RF: 1 pregabalin [Lyrica] 300 mg capsule 300 mg PO BID Qty: 14 RF: 5 zinc oxide 20 % Ointment 40 g topical PRN PRNQty: 0 RF: 0 clotrimazole 1 % Cream 40 g topical PRN PRNQty: 0 RF: 0 vits A and D-white pet-lanolin Ointment 40 g topical PRN PRNQty: 0 RF: 0 quetiapine [Seroquel] 100 MG tablet 400 mg PO HS Qty: 28 RF: 0 clonazepam 0.5 MG tablet,disintegrating 0.5 mg PO BID PRNQty: 10 RF: 0 quetiapine 25 mg tablet 50 mg PO TID RF: 0 Discharge Instructions Instructions: Laceration (ED), Depression (ED) Additional Instructions: Please keep wound clean, dry, covered. You may wash with running water and soap but otherwise please keep them clean. Monitor for signs of infection getting redness, warmth, drainage, increased pain, fever/chills. If you develop these are the new/worsening symptoms please seek care urgently once again. Please follow recommendations set forth by mental health. Please use the bracelets as previously discussed. Please keep your upcoming appointment with psychiatry. Please follow up with primary care for reevaluation in the next week. If you develop thoughts of self-harm, thoughts of harming others or new/worsening symptoms please seek care urgently once again. You may contact emergency medical services at any time [phone]. Referrals: Eliot Sanchez [Primary Care Provider] - Medical Decision Making Patient 53-year-old [id number] female presents with chief complaint of lacerations to the left upper extremity. She is brought in via EMS after her home roommate noted her to have multiple abrasions to her left upper extremity. Roommate did apply pressure dressing to the wounds. Patient reports that she self-inflicted these months. She does report a history of cutting and that she was cutting to relieve stress. Denies any suicidal or homicidal ideation. Has not felt increased stress today as her was in the hospital. Last tetanus was last year. States she has been taking her medications as prescribed, no recent change in medications. On exam, patient is a very flat affect. She is difficult to read short with her answers. She has multiple very superficial abrasions to the anterior aspect of the left upper extremity extending from wrist to elbow. None are actively bleeding. She has full ROM, 2+ distal pulses, sensation intact. Patient has a flat affect, appears disheveled. She has overdosed hisorically. While I do not believe she is an acute risk to herself or others, I will request mental health evaluation given her affect and cutting behavior. Wounds were cleansed and drssed by nursing staff. Patient evaluated by mental health. They feel that she is safe for discharge, patient is able to verbally agree to safety plan. She has methods, that were instructed to her previously, that have worked well. I encouraged that she begin her bracelet technique again. We discussed wound care management. She was given return precautions. Discussed signs of infection. Have asked that she f/u with PCP in one week for reevaluation. She has appointment with psychiatry next week. She was given return precautions. All of her questions and concerns were addressed, she is in agreement with this plan. HPI General Mode of arrival: EMS . Date/Time Provider Initiated Documentation: 02/11/19 22:40 . Limitations to Documentation: no limitations . Information obtained by: patient, EMS and RN notes reviewed . HPI Narrative: Patient is a 53 year old female with c/c of self inflicted lacerations to her LUE. States that she has done this multiple times historically to relieve stress. Denies SI or HI. Reports that she sees mental health regularly, has appointment later this month per patient report. Last tetanus 08/27/17. She denies any numbness/tingling. Endorses moderate amount of pain. Denies cutting her self elsewhere. She states that she cut herself with a steak knife and wounds were then dressed by her roommate. Stressed regarding her being out of the house, he is currently in the hospital. Related Data Home Medications Medication Instructions Recorded Confirmed clonazepam 0.5 mg PO BID PRN #10 tab-cap 08/07/18 01/31/19 clotrimazole 40 g TOPICAL PRN PRN #0 g 08/07/18 01/31/19 quetiapine [Seroquel] 400 mg PO HS #28 tab-cap 08/07/18 01/31/19 vits A and D-white pet-lanolin 40 g TOPICAL PRN PRN #0 g 08/07/18 01/31/19 zinc oxide 40 g TOPICAL PRN PRN #0 g 08/07/18 01/31/19 calcium carbonate 500 mg (1,250 1 tab PO BID #180 tab-cap 08/20/18 01/31/19 mg)-vitamin D3 400 unit tablet guaifenesin 600 mg tablet, 600 mg PO BID PRN #20 tab 08/20/18 01/31/19 extended release 12 hr magnesium oxide 400 mg (241.3 mg 400 mg PO DAILY #90 tab-cap 08/20/18 01/31/19 magnesium) tablet multivitamin 1 tab PO DAILY #90 tab-cap 08/20/18 01/31/19 omeprazole 20 mg capsule,delayed 20 mg PO DAILY@0730 #90 cap 10/03/18 01/31/19 release albuterol sulfate 90 mcg/actuation 2 puff IH QID PRN #6.7 gm 10/30/18 01/31/19 aerosol inhaler benzonatate 100 mg capsule 100 mg PO TID PRN #20 cap 11/15/18 01/31/19 loratadine 10 mg tablet 10 mg PO DAILY tab 11/15/18 01/31/19 quetiapine 50 mg PO TID 12/03/18 01/31/19 midodrine 2.5 mg tablet 2.5 mg PO TID #90 tab 12/25/18 01/31/19 doxycycline hyclate 100 mg capsule 100 mg PO Q12H #14 cap 01/31/19 01/31/19 pregabalin 300 mg capsule 300 mg PO BID #14 tab-cap 02/04/19 Previous Rx's Medication Instructions Recorded clonazepam 0.5 mg PO BID PRN #10 tab-cap 08/07/18 clotrimazole 40 g TOPICAL PRN PRN #0 g 08/07/18 quetiapine [Seroquel] 400 mg PO HS #28 tab-cap 08/07/18 vits A and D-white pet-lanolin 40 g TOPICAL PRN PRN #0 g 08/07/18 zinc oxide 40 g TOPICAL PRN PRN #0 g 08/07/18 calcium carbonate 500 mg (1,250 1 tab PO BID #180 tab-cap 08/20/18 mg)-vitamin D3 400 unit tablet guaifenesin 600 mg tablet, 600 mg PO BID PRN #20 tab 08/20/18 extended release 12 hr magnesium oxide 400 mg (241.3 mg 400 mg PO DAILY #90 tab-cap 08/20/18 magnesium) tablet multivitamin 1 tab PO DAILY #90 tab-cap 08/20/18 omeprazole 20 mg capsule,delayed 20 mg PO DAILY@0730 #90 cap 10/03/18 release albuterol sulfate 90 mcg/actuation 2 puff IH QID PRN #6.7 gm 10/30/18 aerosol inhaler benzonatate 100 mg capsule 100 mg PO TID PRN #20 cap 11/15/18 midodrine 2.5 mg tablet 2.5 mg PO TID #90 tab 12/25/18 doxycycline hyclate 100 mg capsule 100 mg PO Q12H #14 cap 01/31/19 pregabalin 300 mg capsule 300 mg PO BID #14 tab-cap 02/04/19 Allergies Allergy/AdvReac Type Severity Reaction Status Date / Time gabapentin Allergy Unknown unknown Verified 01/31/19 09:46 aripiprazole [From Abilify] AdvReac Mild Psychosis Verified 01/31/19 09:46 General Stated Complaint: Laceration LASHELL: 3 Review of Systems Constitutional Constitutional: Reports as per HPI, Denies chills, Denies fatigue, Denies fever(s), Denies headache(s) and Denies weakness Eyes Eyes: Denies change in vision ENT Ears, Nose, Mouth, and Throat: Denies headache(s) Cardiovascular Cardiovascular: Reports as per HPI, Denies chest pain, Denies lightheadedness, Denies dyspnea and Denies dyspnea on exertion Respiratory Respiratory: Reports as per HPI, Denies cough, Denies dyspnea and Denies dyspnea on exertion Gastrointestinal Gastrointestinal: Reports as per HPI, Denies abdominal pain, Denies change in bowel habits, Denies nausea and Denies vomiting Musculoskeletal Musculoskeletal: Denies abnormal gait Integumentary/Breasts Skin/Breast: Reports as per HPI and Reports wounds Neurologic Neurologic: Denies abnormal movements, Denies abnormal speech, Denies abnormal gait, Denies headache(s), Denies paresthesias and Denies weakness Endocrine Endocrine: Denies fatigue PFSH Medical History Agoraphobia (Chronic) Alcoholism (Acute 05/17/95) Anxiety (Chronic) Bipolar disorder (Acute) Depression (Chronic) Endometriosis (Chronic) Fibrocystic disease of breast (Chronic) GERD (gastroesophageal reflux disease) (Chronic) Metabolic encephalopathy (Acute 04/13/14) Neoplasm of skin (Resolved 12/29/13) Opiate overdose (Acute 04/13/14) Suicide attempt (Resolved 08/15/85) Tobacco dependence (Chronic) Surgical History Abdominal hysterectomy 04/26/02 BSO Colonoscopy - MAC 02/10/03 EXC. ENDOMETRIOSIS (11/29/98) Ligation of fallopian tube 09/18/96 Social History Smoking/Tobacco Use Status: Current every day Tobacco Type: cigarettes Smokeless tobacco user: dissolvable tobacco Quit status: not considering quitting Alcohol Intake: current Alcohol Intake frequency: 3 or more drinks per day Alcohol type: beer, wine and hard liquor Drug use: Binges Substance use type: does not use and opiates Details: pt statets that she may have had oxycodone lately Do you feel safe at home: Yes Do you feel safe in your relationship?: Yes Exam Const General: cooperative, healthy appearing, comfortable, no acute distress, well developed and No well groomed Nutritional Appearance: average body habitus and well nourished Orientation: alert and awake Eyes General: appearance normal, both eyes and all related structures Resp Effort & Inspection: normal respiratory effort, able to speak in complete sentences and no respiratory distress Auscultation: clear to auscultation bilaterally, no rales, no rhonchi and no wheezes Cardio Rate: regular rate Rhythm: regular rhythm Heart Sounds: S1 normal and S2 normal Skin Trauma: abrasion (superficial linear abrasions to LUE) Neuro General: alert and awake Cognition: normal cognition Speech: speech normal Gait: normal gait Extrem Elbow/forearm/wrist images: 1. 2. 3. Patient has multiple linear wounds that are superficial, no active bleeding. Appear that knife was held sideways and she cut herself with the belly of the blade more than the edge. 2+ distal pulses, full ROM, no evidence of deep structure involvmenet, sensation intact. Psych Appearance: disheveled Speech and Movement: speech and movement normal Mood: dysthymic mood Affect: blunted (flat) Attitude: cooperative Thought Process: normal Thought Content: normal Insight: limited Judgment: limited Course Vital Signs Vital signs: Vital Signs Temperature 36.9 C 02/11/19 22:26 Pulse 112 H 02/11/19 22:26 Respiratory Rate 20 02/11/19 22:26 Blood Pressure 103/82 02/11/19 22:26 Pulse Oximetry 93 L 02/11/19 22:26 Temperature 36.9 C 02/11/19 22:26 Temperature Source Temporal Artery Scan 02/11/19 22:26 Pulse 112 H 02/11/19 22:26 Respiratory Rate 20 02/11/19 22:26 Respiratory Effort 02/11/19 22:31 Blood Pressure 103/82 02/11/19 22:26 Blood Pressure Position Supine 02/11/19 22:26 Pulse Oximetry 93 L 02/11/19 22:26 Oxygen Delivery Method Room Air 02/11/19 22:26 Oxygen Flow Rate 0 02/11/19 22:26 Pain Level 6 02/11/19 22:26
--- NOTE | 2019-02-12 00:28 | PDOC.MHCN ---
Date of service: 02/11/19 Time of Service: 23:25 Mental Health Crisis Note Presenting Issue How did you arrive at the ED and why did you come: Patient arrived at the Ed by ambulance due to self harm injuries. Precipitating Factors Patient denies thoughts SI/HI. Patient stated that she stressed and cut herself on her left arm to relieve the stress. Patient had been fighting with her brother over property issues. Patient stated that she felt safe going home and felt like issues with her brother would not be an issue again tonight. Disposition BEHAVIOR: calm EYE CONTACT: okay/sleepy MOOD: cooperative AFFECT: flat APPETITE: good SLEEP(trouble falling/staying asleep: Patient stated she doesn't sleep well due to playing video games loudly. Plan Patient will return home, and meet with [facility] on Feb 24 for her next appointment. Signature Clinician's Name/Title: Braeden Leigh emergency clinician
[2019-02-12 02:35] VITALS: BP 101/75; PULSE 74; RESP 16; TEMP 38; O2SAT 100
== END 2019-02-12 00:15 | disposition home or self-care (01) ==
LOC: ER 02-12 00:17
PROVIDERS: Emergency Provider Physician Assistant; PCP Family Medicine
DX: F32.9 Major depressive disorder, single episode, unspecified (principal); S50.812A Abrasion of left forearm, initial encounter; X83.8XXA Intentional self-harm by other specified means, initial encounter
CPT/HCPCS: 99283

== ENCOUNTER 2019-02-23 13:41 | Emergency (ER) | payer MEDICARE, MEDICAID, SELFPAY ==
[2019-02-23 13:51] VITALS: BP 109/73; PULSE 110; RESP 16; TEMP 36.6; O2SAT 96
--- NOTE | 2019-02-23 14:21 | W.ED.GENAD ---
Discharge Plan Disposition Patient Disposition: HOME Condition: Improving Discharge Details Chief Complaint: Trauma Clinical Impression: Fall at home, Contusion of right shoulder, Chest wall contusion, Contusion of knee, right, Abrasion of face Primary Care Provider: Eliot Sanchez ED Provider: Poornima Byrd Home Meds and New Rx's Prescriptions: Continued calcium carbonate-vitamin D3 [Calcium 500 + D] 500 mg(1,250mg) -400 unit tablet 1 tab PO BID Qty: 180 RF: 3 guaifenesin [Mucinex] 600 mg tablet extended release 12hr 600 mg PO BID PRN (Reason: cold symptoms) Qty: 20 RF: 0 magnesium oxide 400 mg (241.3 mg magnesium) tablet 400 mg PO DAILY Qty: 90 RF: 3 multivitamin [Daily Multi-Vitamin] tablet 1 tab PO DAILY Qty: 90 RF: 3 loratadine 10 mg tablet 10 mg PO DAILY RF: 0 benzonatate [Tessalon Perles] 100 mg capsule 100 mg PO TID PRN (Reason: cough) Qty: 20 RF: 0 albuterol sulfate [Ventolin HFA] 90 mcg/actuation HFA aerosol inhaler 2 puff IH QID PRN (Reason: shortness of breath or wheezing) Qty: 6.7 RF: 1 omeprazole 20 mg capsule,delayed release(DR/EC) 20 mg PO DAILY@0730 Qty: 90 RF: 4 midodrine 2.5 mg tablet 2.5 mg PO TID Qty: 90 RF: 1 pregabalin [Lyrica] 300 mg capsule 300 mg PO BID Qty: 14 RF: 5 zinc oxide 20 % Ointment 40 g topical PRN PRNQty: 0 RF: 0 clotrimazole 1 % Cream 40 g topical PRN PRNQty: 0 RF: 0 vits A and D-white pet-lanolin Ointment 40 g topical PRN PRNQty: 0 RF: 0 quetiapine [Seroquel] 100 MG tablet 400 mg PO HS Qty: 28 RF: 0 clonazepam 0.5 MG tablet,disintegrating 0.5 mg PO BID PRNQty: 10 RF: 0 quetiapine 25 mg tablet 75 mg PO TID RF: 0 Discharge Instructions Instructions: Head Injury (ED), Contusion in Adults (ED), Fall Prevention (ED) Additional Instructions: Alternate tylenol and motrin as needed and directed for pain. Follow-up with your primary care doctor in 1 week. Return to the emergency department with any worsening or new concerning symptoms. Discharge Data Discharge Physician: Poornima Byrd Medical Decision Making 1400 -- 53-year-old female presents for evaluation of right shoulder, right hip right knee pain status post fall at home 2 days ago. Patient states she is unsure of the circumstances around the fall, only knows that she awoke Sunday morning with bruises on her right knee, abrasion on her right face and pain in her right shoulder, right chest, right hip and right knee. She states she chronically has a history of memory problems and that she often does not remember things that happened. She states she saw her PCP office on Sunday for this and was evaluated and no treatment was done and was advised to return to the ER with any worsening symptoms. She has a superficial abrasion to her right face preauricular region. She has tenderness palpation right shoulder and right anterior chest. No orthopedic deformities noted. Lungs clear. Abdomen nontender. No spinal tenderness. No focal deficits. Moving all extremities. Will obtain CT head, right shoulder, right ribs and chest x-ray. Do not see an indication for right hip and knee x-ray. Screening EKG obtained which notes a rate of 98, sinus with no acute ST ischemic changes. 1700 --labs and imaging reviewed. Creatinine kinase 918. Normal renal function. All imaging reviewed and negative. Will give IV fluids and recheck CK. 1800 --CK downtrending down to 675. Patient would like to go home. Discussed possible admission for IV fluids and continue to monitor CK, but she would rather go home at this time. She has an appointment at her primary care doctor's office on Sunday. She is advised to drink plenty of fluids, get plenty of rest, and return to the ER with any concerns. Medical Records Medical records reviewed: Yes I reviewed the patient's medical records. Imaging Data Radiologic Study: Radiologist's impression: CT Head Without Contrast Exam date and time: 02/23/2019 3:02 PM Age: 53 years old Clinical indication: Other: S/P fall, R/O acute intracranial injury TECHNIQUE: Imaging protocol: Computed tomography of the head without contrast. COMPARISON: CT HEAD WO 08/04/2018 7:51 PM FINDINGS: Brain: No acute intracranial hemorrhage. There is mild diffuse heterogeneity of the white matter attenuation, consistent with chronic white matter ischemic changes. Mild cerebral atrophy Ventricles: Normal. No ventriculomegaly. Bones/joints: Unremarkable. No acute fracture. Sinuses: Mucosal thickening in the right maxillary sinus may represent sinusitis Mastoid air cells: Visualized mastoid air cells are well aerated. Soft tissues: Unremarkable. IMPRESSION: No acute intracranial hemorrhage. XR Right Shoulder Exam date and time: 02/23/2019 3:23 PM Age: 53 years old Clinical indication: Other: S/P fall R/O acute fracture; Additional info: S/P fall, R/O acute intracranial injury TECHNIQUE: Imaging protocol: XR Right shoulder. Views: 2 or more views. COMPARISON: No relevant prior studies available. FINDINGS: Bones/joints: There is no evidence of acute fracture.There is no evidence of malalignment or dislocation. Soft tissues: Normal. IMPRESSION: There is no evidence of acute fracture.There is no evidence of malalignment or dislocation. XR Right Ribs Exam date and time: 02/23/2019 3:25 PM Age: 53 years old Clinical indication: Other: S/P fall, R/O acute fracture; Additional info: S/P fall, R/O acute intracranial injury TECHNIQUE: Imaging protocol: XR Right ribs. Views: 2 views. COMPARISON: No relevant prior studies available. FINDINGS: Bones/joints: Normal. Soft tissues: Normal. IMPRESSION: No acute findings. XR Chest, 2 Views Exam date and time: 02/23/2019 3:25 PM Age: 53 years old Clinical indication: Other: S/P fall, R/O acute fracture; Additional info: S/P fall, R/O acute intracranial injury TECHNIQUE: Imaging protocol: XR of the chest Views: 2 views. COMPARISON: No relevant prior studies available. FINDINGS: Lungs: Unremarkable. No consolidation. Pleural space: Mild apical pleural thickening may be chronic. Heart/Mediastinum: Unremarkable. No cardiomegaly. Bones/joints: Unremarkable. IMPRESSION: Mild apical pleural thickening may be chronic. Recommend comparison to a prior studies Lab Data Lab results reviewed: Yes I reviewed the patient's lab results. HPI General Mode of arrival: ambulatory. Date/Time Provider Initiated Documentation: 02/23/19 13:53. Limitations to Documentation: no limitations. Information obtained by: patient. History of Present Illness 53 year old F presents to the emergency department with the chief complaint of Fall at home , and is localized to the head, face, chest, pelvis, right and upper extremity (Right shoulder, right hip and right knee). Patient started experiencing this day(s) (2 days ago) and it has been constant. No relieving factors improve symptom(s), Movement worsens symptoms . Patient notes no other symptoms.. Patient did receive the following treatments prior to arrival, none Related Data Home Medications Medication Instructions Recorded Confirmed clonazepam 0.5 mg PO BID PRN #10 tab-cap 08/07/18 02/23/19 clotrimazole 40 g TOPICAL PRN PRN #0 g 08/07/18 02/23/19 quetiapine [Seroquel] 400 mg PO HS #28 tab-cap 08/07/18 02/23/19 vits A and D-white pet-lanolin 40 g TOPICAL PRN PRN #0 g 08/07/18 02/23/19 zinc oxide 40 g TOPICAL PRN PRN #0 g 08/07/18 02/23/19 calcium carbonate 500 mg (1,250 1 tab PO BID #180 tab-cap 08/20/18 02/23/19 mg)-vitamin D3 400 unit tablet guaifenesin 600 mg tablet, 600 mg PO BID PRN #20 tab 08/20/18 02/23/19 extended release 12 hr magnesium oxide 400 mg (241.3 mg 400 mg PO DAILY #90 tab-cap 08/20/18 02/23/19 magnesium) tablet multivitamin 1 tab PO DAILY #90 tab-cap 08/20/18 02/23/19 omeprazole 20 mg capsule,delayed 20 mg PO DAILY@0730 #90 cap 10/03/18 02/23/19 release albuterol sulfate 90 mcg/actuation 2 puff IH QID PRN #6.7 gm 10/30/18 02/23/19 aerosol inhaler benzonatate 100 mg capsule 100 mg PO TID PRN #20 cap 11/15/18 02/23/19 loratadine 10 mg tablet 10 mg PO DAILY tab 11/15/18 02/23/19 quetiapine 75 mg PO TID 12/03/18 02/23/19 midodrine 2.5 mg tablet 2.5 mg PO TID #90 tab 12/25/18 02/23/19 pregabalin 300 mg capsule 300 mg PO BID #14 tab-cap 02/04/19 02/23/19 Previous Rx's Medication Instructions Recorded clonazepam 0.5 mg PO BID PRN #10 tab-cap 08/07/18 clotrimazole 40 g TOPICAL PRN PRN #0 g 08/07/18 quetiapine [Seroquel] 400 mg PO HS #28 tab-cap 08/07/18 vits A and D-white pet-lanolin 40 g TOPICAL PRN PRN #0 g 08/07/18 zinc oxide 40 g TOPICAL PRN PRN #0 g 08/07/18 calcium carbonate 500 mg (1,250 1 tab PO BID #180 tab-cap 08/20/18 mg)-vitamin D3 400 unit tablet guaifenesin 600 mg tablet, 600 mg PO BID PRN #20 tab 08/20/18 extended release 12 hr magnesium oxide 400 mg (241.3 mg 400 mg PO DAILY #90 tab-cap 08/20/18 magnesium) tablet multivitamin 1 tab PO DAILY #90 tab-cap 08/20/18 omeprazole 20 mg capsule,delayed 20 mg PO DAILY@0730 #90 cap 10/03/18 release albuterol sulfate 90 mcg/actuation 2 puff IH QID PRN #6.7 gm 10/30/18 aerosol inhaler benzonatate 100 mg capsule 100 mg PO TID PRN #20 cap 11/15/18 midodrine 2.5 mg tablet 2.5 mg PO TID #90 tab 12/25/18 pregabalin 300 mg capsule 300 mg PO BID #14 tab-cap 02/04/19 Allergies Allergy/AdvReac Type Severity Reaction Status Date / Time gabapentin Allergy Unknown unknown Verified 02/23/19 13:55 aripiprazole [From Abilify] AdvReac Mild Psychosis Verified 02/23/19 13:55 General Stated Complaint: Trauma LASHELL: 3 Review of Systems All systems reviewed & are unremarkable except as noted in HPI and below Constitutional Constitutional: Reports as per HPI, Denies chills and Denies fever(s) Eyes Eyes: Denies blurry vision ENT Ears, Nose, Mouth, and Throat: Denies dizziness, Denies sore throat and Denies throat swelling Cardiovascular Cardiovascular: Denies chest pain and Denies dyspnea Respiratory Respiratory: Denies cough and Denies dyspnea Gastrointestinal Gastrointestinal: Denies abdominal pain, Denies diarrhea and Denies vomiting Genitourinary Genitourinary: Denies hematuria and Denies dysuria Musculoskeletal Musculoskeletal: Denies back pain, Denies numbness and Reports other (Right shoulder, right chest, right hip and right knee pain) Integumentary/Breasts Skin/Breast: Denies lesions and Denies rash Neurologic Neurologic: Denies dizziness, Denies focal weakness and Denies numbness Allergic/Immunologic Allergic/Immunologic: Denies throat swelling [facility] Medical History Agoraphobia (Chronic) Alcoholism (Acute 05/17/95) Anxiety (Chronic) Bipolar disorder (Acute) Depression (Chronic) Endometriosis (Chronic) Fibrocystic disease of breast (Chronic) GERD (gastroesophageal reflux disease) (Chronic) Metabolic encephalopathy (Acute 04/13/14) Neoplasm of skin (Resolved 12/29/13) Opiate overdose (Acute 04/13/14) Suicide attempt (Resolved 08/15/85) Tobacco dependence (Chronic) Surgical History Abdominal hysterectomy 04/26/02 BSO Colonoscopy - MAC 02/10/03 EXC. ENDOMETRIOSIS (11/29/98) Ligation of fallopian tube 09/18/96 Family History Mother No problems noted. Father No problems noted. Brother Heart disease Social History Smoking/Tobacco Use Status: Current every day Tobacco Type: cigarettes Smokeless tobacco user: dissolvable tobacco Quit status: not considering quitting Alcohol Intake: current Alcohol Intake frequency: a few times a week Alcohol type: beer, wine and hard liquor Drug use: Binges Substance use type: does not use and opiates Details: pt statets that she may have had oxycodone lately Do you feel safe at home: Yes Do you feel safe in your relationship?: Yes Exam Const General: cooperative, healthy appearing and disheveled Orientation: alert and awake [facility] Head: normal to inspection Head images: 1. 1 x 1 cm abrasion with minimal surrounding erythema Ears: hearing grossly normal bilaterally, external ears normal and TM's normal bilaterally General nose exam: external nose normal Face and sinus: normal facial exam Mouth: oral mucosae normal Teeth and gingiva: dentition normal Throat: posterior oropharynx normal Eyes General: appearance normal, both eyes and all related structures Eyelids: eyelids normal Pupils: PERRL EOM: EOM intact bilaterally Neck Neck: normal visual inspection Lymphatic: no lymphadenopathy noted Chest Chest: normal inspection of the chest and tenderness (Right upper anterior chest) Resp Effort & Inspection: normal respiratory effort and able to speak in complete sentences Auscultation: clear to auscultation bilaterally Cardio Rate: regular rate Rhythm: regular rhythm GI Inspection: normal to inspection Palpation: soft, not firm, no guarding, no hepatosplenomegaly, no masses and nontender Auscultation: normal bowel sounds Back/Spine/Pelvis Back: no CVA tenderness Cervical Spine: No cervical spinal tenderness Thoracic/Lumbar Spine: No thoracic spinal tenderness and No lumbar spinal tenderness Pelvis: no pain with anterior-posterior compression Skin General skin exam: no rashes or lesions noted Neuro General: alert and awake Cranial Nerves: CN's II-XI intact bilaterally Cognition: normal cognition Speech: speech normal Gait: normal gait Motor: muscle tone normal throughout and strength 5/5 throughout Sensory Exam: no sensory deficits noted Extrem General: normal to inspection, full ROM and normal capillary refill Knee images: 1. 2 x 2 centimeter area of ecchymosis. Other: Pain in right shoulder with range of motion. No pain with range of motion at right hip or right knee. No evidence of deformity to extremities. Distal pulses intact bilaterally. Psych Appearance: grossly normal Mental Status: mental status grossly normal Speech and Movement: speech and movement normal Affect: normal affect Thought Process: normal Course Vital Signs Vital signs: Vital Signs Temperature 97.9 F 02/23/19 13:51 Pulse 110 H 02/23/19 13:51 Respiratory Rate 16 02/23/19 13:51 Blood Pressure 109/73 02/23/19 13:51 Pulse Oximetry 96 02/23/19 13:51 Temperature 97.9 F 02/23/19 13:51 Temperature Source Skin 02/23/19 13:51 Pulse 110 H 02/23/19 13:51 Respiratory Rate 16 02/23/19 13:51 Respiratory Effort Non-Labored 02/23/19 13:51 Blood Pressure 109/73 02/23/19 13:51 Blood Pressure Position Sitting 02/23/19 13:51 Pulse Oximetry 96 02/23/19 13:51 Oxygen Delivery Method Room Air 02/23/19 13:51 Oxygen Flow Rate 0 02/23/19 13:51 Pain Level 8 02/23/19 13:51
[2019-02-23] MEDS: Ibuprofen 600 MG TAB PO (14:46)
[2019-02-23] MEDS: Lidocaine 5% Patch 1 PATCH TP (14:47)
[2019-02-23] MEDS: Normal Saline 1,000 ML 1000 ML IV ×2 (14:59→17:02)
[2019-02-23 15:01] LABS: Abs Immature Grans 0.07 k/cumm (0.0-0.09); Absolute Basophil Count 0.03 k/cumm (0.0-0.2); Absolute Eosinophil Count 0.11 k/cumm (0.0-0.7); Absolute Lymphocyte Count 2.27 k/cumm (1.2-3.4); Absolute Monocyte Count 0.28 k/cumm (0.11-0.7); Basophils % 0.5; Eosinophils % 1.9; HCT 38.7 % (36.0-46.0); HGB 12.6 g/dL (12.0-15.5); Immature Grans % 1.2; Lymphocytes % 39.4; Mean Corp. HGB Concentration 32.6 g/dL (32.0-36.0); Mean Corpuscular Hemoglobin 31.7 pg (27.0-33.0); Mean Corpuscular Volume 97.5 fL (80-95); Mean Platelet Volume 8.6 fL (8.0-11.0); Monocytes % 4.9; Neutrophils % 52.1; Platelet Count 245 x1000/uL (130-400); RBC 3.97 m/cumm (4.00-5.20); RBC Distribution Width 14.6 % (11.7-14.6); White Blood Cell Count 5.76 k/cumm (4.4-10.8)
--- NOTE | 2019-02-23 15:04 | DI.CT_ITS ---
EXAM: CT HEAD WO CLINICAL HISTORY: s/p fall, r/o acute intracranial injury TECHNIQUE: The exam was performed according to the usual protocol without contrast. COMPARISON: Comparison 08/04/2018 FINDINGS: Ventricles and sulci are consistent with the patient's age. No acute intracranial hemorrhage, midline shift or mass effect is identified. The ventricles are intact. The basilar cisterns are patent. Th ere is mucosal thickening seen in a few ethmoid air cells and the right maxillary sinus. There does appear to be a fluid level in the right maxillary sinus. This may represent sinusitis. The remaining visualized paranasal sinuses are clear. The calvarium is intact. IMPRESSION: No acute intracranial process.
--- NOTE | 2019-02-23 15:09 | DI.RAD_ITS ---
EXAM: XR SHOULDER RT COMPLETE 2+V CLINICAL HISTORY: s/p fall, r/o acute fracture. TECHNIQUE: 2D digital imaging was performed. COMPARISON: No exams were available for comparison FINDINGS: BONES: No acute fracture is present. No bony destructive lesion is seen. JOINTS: No dislocation present. SOFT TISSUE: Normal. IMPRESSION: Unremarkable radiographs of the right shoulder.
--- NOTE | 2019-02-23 15:13 | DI.RAD_ITS ---
EXAM: XR RIBS RT W PA LAT CHEST INDICATION: s/p fall, r/o acute fracture. COMPARISON: XR CHEST 2V PA LATERAL from 08/04/2018 TECHNIQUE: 2D digital imaging was performed. FINDINGS: Heart size and pulmonary vasculature are within normal limits. The lungs are clear. No pleural effu andrew or pneumothorax is identified. No rib fractures are identified. There is scarring again seen i n the lung apices. IMPRESSION: No acute pulmonary process. No acute rib fracture.
[2019-02-23 15:16] LABS: ALT 27 U/L (14-59); AST 46 U/L (15-37); Alkaline Phosphatase 175 U/L (46-116); Anion Gap 11.5 mmol/L (3-11); BUN 12 mg/dL (7-18); Bilirubin, Total 0.2 mg/dL (0.2-1.0); CO2 26.5 mmol/L (21.0-32.0); CREATININE 0.64 mg/dL (0.55-1.02); Calcium 8.7 mg/dL (8.5-10.1); Chloride 106 mmol/L (98-107); Glucose 93 mg/dL (74-106); Magnesium 2.1 mg/dL (1.8-2.4); Potassium 3.9 mmol/L (3.5-5.1); Sodium 144 mmol/L (136-145); Total Protein 6.7 g/dL (6.4-8.2)
[2019-02-23 15:19] LABS: Troponin I < 0.05 ng/Ml (<0.06)
--- NOTE | 2019-02-23 15:34 | DI.VRAD_ITS ---
PROCEDURE INFORMATION: Exam: CT Head Without Contrast Exam date and time: 02/23/2019 3:02 PM Age: 53 years old Clinical indication: Other: S/P fall, R/O acute intracranial injury TECHNIQUE: Imaging protocol: Computed tomography of the head without contrast. COMPARISON: CT HEAD WO 08/04/2018 7:51 PM FINDINGS: Brain: No acute intracranial hemorrhage. There is mild diffuse heterogeneity of the white matter attenuation, consistent with chronic white matter ischemic changes. Mild cerebral atrophy Ventricles: Normal. No ventriculomegaly. Bones/joints: Unremarkable. No acute fracture. Sinuses: Mucosal thickening in the right maxillary sinus may represent sinusitis Mastoid air cells: Visualized mastoid air cells are well aerated. Soft tissues: Unremarkable. IMPRESSION: No acute intracranial hemorrhage. Dictated and Authenticated by: Jordon Acevedo MD. Ordering:NICHOLAS Noguera MD
--- NOTE | 2019-02-23 15:35 | DI.VRAD_ITS ---
PROCEDURE INFORMATION: Exam: XR Right Shoulder Exam date and time: 02/23/2019 3:23 PM Age: 53 years old Clinical indication: Other: S/P fall R/O acute fracture; Additional info: S/P fall, R/O acute intracranial injury TECHNIQUE: Imaging protocol: XR Right shoulder. Views: 2 or more views. COMPARISON: No relevant prior studies available. FINDINGS: Bones/joints: There is no evidence of acute fracture.There is no evidence of malalignment or dislocation. Soft tissues: Normal. IMPRESSION: There is no evidence of acute fracture.There is no evidence of malalignment or dislocation. Dictated and Authenticated by: Jordon Acevedo MD. Ordering:NICHOLAS Noguera MD
--- NOTE | 2019-02-23 15:38 | DI.VRAD_ITS ---
PROCEDURE INFORMATION: Exam: XR Right Ribs Exam date and time: 02/23/2019 3:25 PM Age: 53 years old Clinical indication: Other: S/P fall, R/O acute fracture; Additional info: S/P fall, R/O acute intracranial injury TECHNIQUE: Imaging protocol: XR Right ribs. Views: 2 views. COMPARISON: No relevant prior studies available. FINDINGS: Bones/joints: Normal. Soft tissues: Normal. IMPRESSION: No acute findings. PROCEDURE INFORMATION: Exam: XR Chest, 2 Views Exam date and time: 02/23/2019 3:25 PM Age: 53 years old Clinical indication: Other: S/P fall, R/O acute fracture; Additional info: S/P fall, R/O acute intracranial injury TECHNIQUE: Imaging protocol: XR of the chest Views: 2 views. COMPARISON: No relevant prior studies available. FINDINGS: Lungs: Unremarkable. No consolidation. Pleural space: Mild apical pleural thickening may be chronic. Heart/Mediastinum: Unremarkable. No cardiomegaly. Bones/joints: Unremarkable. IMPRESSION: Mild apical pleural thickening may be chronic. Recommend comparison to a prior studies Dictated and Authenticated by: Jordon Acevedo MD. Ordering:NICHOLAS Noguera MD
[2019-02-23 15:53] LABS: Creatine Kinase 918 U/L (26-192)
[2019-02-23 16:57] VITALS: BP 100/72; PULSE 90; RESP 16; O2SAT 94
[2019-02-23 18:30] VITALS: BP 109/78; PULSE 79; RESP 16; O2SAT 97
[2019-02-23 18:56] LABS: Creatine Kinase 675 U/L (26-192)
== END 2019-02-23 19:30 | disposition home or self-care (01) ==
PROVIDERS: Emergency Provider Physician Assistant; PCP Family Medicine
DX: S00.81XA Abrasion of other part of head, initial encounter (principal); S40.011A Contusion of right shoulder, initial encounter; S80.01XA Contusion of right knee, initial encounter; S20.211A Contusion of right front wall of thorax, initial encounter; W19.XXXA Unspecified fall, initial encounter
CPT/HCPCS: 36415; 80053; 82550; 93005; 96360; 96361; 99285; 70450; 71046; 71100; 73030; 83735; 84484; 85025; 93010

== ENCOUNTER 2019-04-03 20:02 | Emergency (ER) | payer MEDICARE, MEDICAID, SELFPAY ==
[2019-04-03 20:03] VITALS: BP 108/77; PULSE 107; RESP 18; TEMP 36.8; O2SAT 94
--- NOTE | 2019-04-03 20:37 | ED.GENADUL_ITS ---
Discharge Plan Disposition Patient Disposition: HOME Condition: Stable Discharge Details Chief Complaint: Orthopedic Clinical Impression: Pain of left calf Primary Care Provider: Eliot Sanchez ED Provider: Caio Borja Bayard Meds and New Rx's Prescriptions: Continued calcium carbonate-vitamin D3 [Calcium 500 + D] 500 mg(1,250mg) -400 unit tablet 1 tab PO BID Qty: 180 RF: 3 guaifenesin [Mucinex] 600 mg tablet extended release 12hr 600 mg PO BID PRN (Reason: cold symptoms) Qty: 20 RF: 0 magnesium oxide 400 mg (241.3 mg magnesium) tablet 400 mg PO DAILY Qty: 90 RF: 3 multivitamin [Daily Multi-Vitamin] tablet 1 tab PO DAILY Qty: 90 RF: 3 loratadine 10 mg tablet 10 mg PO DAILY RF: 0 benzonatate [Tessalon Perles] 100 mg capsule 100 mg PO TID PRN (Reason: cough) Qty: 20 RF: 0 omeprazole 20 mg capsule,delayed release(DR/EC) 20 mg PO DAILY@0730 Qty: 90 RF: 4 midodrine 2.5 mg tablet 2.5 mg PO TID Qty: 90 RF: 2 pregabalin [Lyrica] 300 mg capsule 300 mg PO BID Qty: 14 RF: 5 albuterol sulfate [Ventolin HFA] 90 mcg/actuation HFA aerosol inhaler 2 puff IH QID PRN (Reason: shortness of breath or wheezing) Qty: 6.7 RF: 3 clotrimazole 1 % Cream 40 g topical PRN PRNQty: 0 RF: 0 vits A and D-white pet-lanolin Ointment 40 g topical PRN PRNQty: 0 RF: 0 quetiapine [Seroquel] 100 MG tablet 400 mg PO HS Qty: 28 RF: 0 clonazepam 0.5 MG tablet,disintegrating 0.5 mg PO BID PRNQty: 10 RF: 0 quetiapine 25 mg tablet 75 mg PO TID RF: 0 Discharge Instructions Instructions: Leg Pain (ED) Additional Instructions: you should be contacted tomorrow for an appointment for an ultrasound you can take 1000mg tylenol and 600mg ibuprofen every 6 hours for pain as needed Medical Decision Making 53 yo female comes in with one week of nontraumatic left calf pain. Denies fevers, chills, sob, chest pain, numbness. HAs full rom of the foot, ankle, and knee. Has pain with palpation to the left calf without significant swelling, intact pulses and sensation on exam. No bone tenderness. Given lack of trauma and no bone tenderness doubt fx and do not feel xrays indicated. No fevers, redness, erythema so doubt septic joint and pain is in mid calf. No crepitus or warmth so doubt nec fasc. Will have her return for u/s tomorrow, do not feel empiric anticoagulation indicated given low clinical probability. Differential Diagnosis Differential Diagnosis: strain, spasm, dvt HPI General Date/Time Provider Initiated Documentation: 04/03/19 20:04 . Limitations to Documentation: no limitations . Information obtained by: patient . History of Present Illness 53 year old F presents to the emergency department with the chief complaint of left calf pain, described as moderate, and it has been constant. No relieving factors im prove symptom(s), No exacerbating factors reported . Related Data Home Medications Medication Instructions Recorded Confirmed clonazepam 0.5 mg PO BID PRN #10 tab-cap 08/07/18 04/02/19 clotrimazole 40 g TOPICAL PRN PRN #0 g 08/07/18 04/02/19 quetiapine [Seroquel] 400 mg PO HS #28 tab-cap 08/07/18 04/03/19 vits A and D-white pet-lanolin 40 g TOPICAL PRN PRN #0 g 08/07/18 04/03/19 calcium carbonate 500 mg (1,250 1 tab PO BID #180 tab-cap 08/20/18 04/02/19 mg)-vitamin D3 400 unit tablet guaifenesin 600 mg tablet, 600 mg PO BID PRN #20 tab 08/20/18 04/02/19 extended release 12 hr magnesium oxide 400 mg (241.3 mg 400 mg PO DAILY #90 tab-cap 08/20/18 04/02/19 magnesium) tablet multivitamin 1 tab PO DAILY #90 tab-cap 08/20/18 04/03/19 omeprazole 20 mg capsule,delayed 20 mg PO DAILY@0730 #90 cap 10/03/18 04/03/19 release benzonatate 100 mg capsule 100 mg PO TID PRN #20 cap 11/15/18 04/02/19 loratadine 10 mg tablet 10 mg PO DAILY tab 11/15/18 04/02/19 quetiapine 75 mg PO TID 12/03/18 04/03/19 midodrine 2.5 mg tablet 2.5 mg PO TID #90 tab 03/03/19 04/02/19 pregabalin 300 mg capsule 300 mg PO BID #14 tab-cap 03/13/19 04/03/19 albuterol sulfate 90 mcg/actuation 2 puff IH QID PRN #6.7 gm 04/01/19 04/02/19 aerosol inhaler Previous Rx's Medication Instructions Recorded clonazepam 0.5 mg PO BID PRN #10 tab-cap 08/07/18 clotrimazole 40 g TOPICAL PRN PRN #0 g 08/07/18 quetiapine [Seroquel] 400 mg PO HS #28 tab-cap 08/07/18 vits A and D-white pet-lanolin 40 g TOPICAL PRN PRN #0 g 08/07/18 calcium carbonate 500 mg (1,250 1 tab PO BID #180 tab-cap 08/20/18 mg)-vitamin D3 400 unit tablet guaifenesin 600 mg tablet, 600 mg PO BID PRN #20 tab 08/20/18 extended release 12 hr magnesium oxide 400 mg (241.3 mg 400 mg PO DAILY #90 tab-cap 08/20/18 magnesium) tablet multivitamin 1 tab PO DAILY #90 tab-cap 08/20/18 omeprazole 20 mg capsule,delayed 20 mg PO DAILY@0730 #90 cap 10/03/18 release benzonatate 100 mg capsule 100 mg PO TID PRN #20 cap 11/15/18 midodrine 2.5 mg tablet 2.5 mg PO TID #90 tab 03/03/19 pregabalin 300 mg capsule 300 mg PO BID #14 tab-cap 03/13/19 albuterol sulfate 90 mcg/actuation 2 puff IH QID PRN #6.7 gm 04/01/19 aerosol inhaler Allergies Allergy/AdvReac Type Severity Reaction Status Date / Time gabapentin Allergy Unknown unknown Verified 04/03/19 20:12 aripiprazole [From Abilify] AdvReac Mild Psychosis Verified 04/03/19 20:12 General Stated Complaint: Orthopedic LASHELL: 4 Review of Systems All systems reviewed & are unremarkable except as noted in HPI and below Constitutional Constitutional: Denies chills, Denies fever(s) and Denies weakness ENT Ears, Nose, Mouth, and Throat: Denies change in voice Cardiovascular Cardiovascular: Denies chest pain and Denies dyspnea Respiratory Respiratory: Denies cough and Denies dyspnea Gastrointestinal Gastrointestinal: Denies abdominal pain, Denies nausea and Denies vomiting Musculoskeletal Musculoskeletal: Denies joint swelling Neurologic Neurologic: Denies weakness COUNTS INCLUDE 234 BEDS AT THE [facility] Social History Smoking/Tobacco Use Status: Current every day Tobacco Type: cigarettes Smokeless tobacco user: dissolvable tobacco Quit status: not considering quitting Alcohol Intake: former Drug use: Binges Substance use type: does not use Details: pt statets that she may have had oxycodone lately Do you feel safe at home: Yes Do you feel safe in your relationship?: Yes Exam Const General: no acute distress Orientation: alert HENMT Head: normal to inspection Ears: external ears normal General nose exam: external nose normal Mouth: moist mucous membranes Eyes General: appearance normal, both eyes and all related structures Neck Neck: normal visual inspection Resp Effort & Inspection: normal respiratory effort and able to speak in complete sentences Cardio Rate: regular rate Skin General skin exam: no rashes or lesions noted Neuro General: alert and oriented x3 Extrem General: normal to inspection Psych Mental Status: mental status grossly normal Course Vital Signs Vital signs: Vital Signs Temperature 36.8 C 04/03/19 20:03 Pulse 107 H 04/03/19 20:03 Respiratory Rate 18 04/03/19 20:03 Blood Pressure 108/77 04/03/19 20:03 Pulse Oximetry 94 L 04/03/19 20:03 Temperature 36.8 C 04/03/19 20:03 Temperature Source Temporal Artery Scan 04/03/19 20:03 Pulse 107 H 04/03/19 20:03 Respiratory Rate 18 04/03/19 20:03 Respiratory Effort 04/03/19 20:07 Blood Pressure 108/77 04/03/19 20:03 Pulse Oximetry 94 L 04/03/19 20:03 Oxygen Delivery Method Room Air 04/03/19 20:03 Oxygen Flow Rate 0 04/03/19 20:03 Pain Level 10 04/03/19 20:03
[2019-04-03] MEDS: Ibuprofen 600 MG TAB PO (20:43)
[2019-04-03] MEDS: Acetaminophen 500 MG TAB 1000 MG PO (20:43)
[2019-04-03 21:26] VITALS: BP 99/65; PULSE 107; RESP 18; TEMP 36.5; O2SAT 96
--- NOTE | 2019-04-04 15:04 | NUR.NOTE ---
Nursing Note: Per radiology the patient was called to make an ultrasound appt. but there was no answer. Rosalia Lowe.
== END 2019-04-03 21:30 | disposition home or self-care (01) ==
LOC: ER 21:00
PROVIDERS: Emergency Provider Emergency Medicine; PCP Family Medicine
DX: M79.662 Pain in left lower leg (principal)
CPT/HCPCS: 99282

== ENCOUNTER → 2019-04-09 13:09 | Outpatient (BNVA) | payer MEDICARE, MEDICAID, SELFPAY | PROVIDERS: PCP Family Medicine; Referring Provider Family Medicine; Visit Provider Psychiatry & Neurology Neurology | DX: R41.3 Other amnesia (principal); F39 Unspecified mood [affective] disorder; F10.20 Alcohol dependence, uncomplicated; G47.00 Insomnia, unspecified; Z79.899 Other long term (current) drug therapy | CPT/HCPCS: 99204; 99215 ==

== ENCOUNTER 2019-04-11 03:38 | Outpatient (CLI) | payer MEDICARE, MEDICAID, SELFPAY ==
--- NOTE | 2019-04-11 11:00 | DI.US_ITS ---
EXAM: US SOFT TISSUE EXTREMITY CLINICAL HISTORY: LUMP/PAIN IN LEFT CALF, M79.662 TECHNIQUE: Ultrasound performed using standard protocol. COMPARISON: US ABDOMEN from 04/11/2018 FINDINGS: Sonographic evaluation of the palpable area of the left calf was performed. No cystic or solid sebastian s are seen sonographically. IMPRESSION: No cystic or solid mass sonographically.
== END 2019-04-11 03:58 ==
PROVIDERS: PCP Family Medicine; Visit Provider Family Medicine
DX: M79.662 Pain in left lower leg (principal); R22.42 Localized swelling, mass and lump, left lower limb
CPT/HCPCS: 76881